=== PATIENT | female | born 1990 | race Caucasian/White ===

== ENCOUNTER 2020-01-18 08:19 | Outpatient (REF) | payer OTHER, SELFPAY ==
[2020-01-18 08:58] LABS: COVID-19 Test Negative (Negative)
== END 2020-01-18 08:20 | disposition home or self-care (01) ==
LOC: HO.LAB 08:19
PROVIDERS: Visit Provider Internal Medicine
DX: Z20.828 Contact with and (suspected) exposure to other viral communicable diseases (principal)
CPT/HCPCS: 87635; C9803

== ENCOUNTER 2020-02-24 08:08 | Outpatient (REF) | payer OTHER, SELFPAY ==
[2020-02-24 08:35] LABS: COVID-19 Test Negative (Negative)
== END 2020-02-24 08:09 | disposition home or self-care (01) ==
LOC: HO.EMPCOV 08:08
PROVIDERS: Visit Provider Internal Medicine
DX: Z20.828 Contact with and (suspected) exposure to other viral communicable diseases (principal)
CPT/HCPCS: 87635; C9803

== ENCOUNTER 2020-02-28 07:08 | Outpatient (REF) | payer OTHER, SELFPAY ==
[2020-02-28 07:52] LABS: COVID-19 Test Negative (Negative)
== END 2020-02-28 07:09 | disposition home or self-care (01) ==
LOC: HO.EMPCOV 07:08
PROVIDERS: Visit Provider Internal Medicine
DX: Z20.828 Contact with and (suspected) exposure to other viral communicable diseases (principal)
CPT/HCPCS: 87635; C9803

== ENCOUNTER 2020-03-09 07:18 | Outpatient (REF) | payer OTHER, SELFPAY ==
[2020-03-09 07:38] LABS: COVID-19 Test Negative (Negative); IDNOW Serial# 55D5AD1C
== END 2020-03-09 07:19 | disposition home or self-care (01) ==
LOC: HO.EMPCOV 07:18
PROVIDERS: Visit Provider Internal Medicine
DX: Z20.828 Contact with and (suspected) exposure to other viral communicable diseases (principal)
CPT/HCPCS: 87635; C9803

== ENCOUNTER 2020-06-23 07:52 | Outpatient (REF) | payer OTHER, SELFPAY ==
[2020-06-23 09:38] LABS: COVID-19 Test Negative (Negative)
== END 2020-06-23 07:53 | disposition home or self-care (01) ==
LOC: HO.EMPCOV 07:52
PROVIDERS: Visit Provider Internal Medicine
DX: Z20.822 Contact with and (suspected) exposure to COVID-19 (principal)
CPT/HCPCS: 36415; 87635; C9803

== ENCOUNTER 2020-07-26 08:12 | Outpatient (REF) | payer OTHER, SELFPAY ==
[2020-07-26 08:40] LABS: COVID-19 Test Negative (Negative)
== END 2020-07-26 08:13 | disposition home or self-care (01) ==
LOC: HO.EMPCOV 08:12
PROVIDERS: Visit Provider Internal Medicine
DX: Z20.822 Contact with and (suspected) exposure to COVID-19 (principal)
CPT/HCPCS: 36415; 87635; C9803

== ENCOUNTER 2020-08-02 12:35 | Outpatient (REF) | payer OTHER, SELFPAY ==
[2020-08-02 12:54] LABS: COVID-19 Test Negative (Negative)
== END 2020-08-02 12:36 | disposition home or self-care (01) ==
LOC: HO.EMPCOV 12:35
PROVIDERS: Visit Provider Internal Medicine
DX: Z20.822 Contact with and (suspected) exposure to COVID-19 (principal)
CPT/HCPCS: 87635; C9803; U0003; U0005

== ENCOUNTER 2021-01-31 07:48 | Outpatient (REF) | payer OTHER, SELFPAY ==
[2021-01-31 08:00] LABS: MANUAL DIFF FLAG NO
[2021-01-31 08:16] LABS: Basophils Percent Auto 0.6 % (0-2); Eosinophils Absolute Auto 0.1 X10*3/uL (0.0-0.4); Eosinophils Percent Auto 2.1 % (0-4); Hematocrit 40.7 % (37.0-47.0); Hemoglobin 13.6 g/dl (12.0-16.0); Imm Gran Abs Auto 0.01 X10*3/uL (0.00-0.03); Imm Gran Pct Auto 0.2 % (0.0-0.4); Lymphocytes Absolute Auto 2.4 X10*3/uL (1.2-4.9); Lymphocytes Percent Auto 46.9 % (20-40); Mean Corpuscular HGB Conc 33.4 g/dl (31.0-35.0); Mean Corpuscular Hemoglobin 31.6 pg (27.0-33.0); Mean Corpuscular Volume 94.4 fL (80.0-98.0); Mean Platelet Volume 10.2 fL (9.4-12.3); Monocytes Absolute Auto 0.4 X10*3/uL (0.1-1.2); Monocytes Percent Auto 6.8 % (2-11); Neutrophils Absolute Auto 2.2 x10*3/uL (2.0-8.3); Neutrophils Percent Auto 43.4 % (45-73); Platelet Count 241 X10*3/uL (160-400); Red Blood Count 4.31 X10*6/uL (4.20-5.50); Red Cell Distribution Width 11.4 % (11.0-16.0); White Blood Count 5.2 X10*3/uL (4.8-10.8)
[2021-01-31 08:58] LABS: Anion Gap 11 (12-20); Blood Urea Nitrogen 15 mg/dL (9-16); Carbon Dioxide 27 mmol/L (22-29); Chloride 105 mmol/L (96-108); Cholesterol 197 mg/dL; Estimated Glomerular Filt Rate > 60; Glucose Random 99 mg/dL (60-115); HDL Cholesterol 89 mg/dL; Iron 124 mcg/dL (30-160); LDL Cholesterol Calculated 86 mg/dl; Percent Iron Saturation 27 % (15-50); Potassium 4.1 mmol/L (3.3-5.1); Sodium 139 mmol/L (135-145); Total Iron Binding Capacity 462 mcg/dL (228-428); Triglycerides 112 mg/dL; Unsaturated Iron Binding 338 ug/dL
== END 2021-01-31 07:49 | disposition home or self-care (01) ==
LOC: HO.LAB 07:48
PROVIDERS: Visit Provider Internal Medicine
DX: Z00.00 Encounter for general adult medical examination without abnormal findings (principal); F98.8 Other specified behavioral and emotional disorders with onset usually occurring in childhood and adolescence; Z83.49 Family history of other endocrine, nutritional and metabolic diseases
CPT/HCPCS: 36415; 80048; 80061; 83540; 85025

== ENCOUNTER 2021-07-02 11:59 | Outpatient (REF) | payer OTHER, SELFPAY ==
[2021-07-02 12:50] LABS: Appearance Urine CLEAR; Color Urine YELLOW; Glucose Urine UA NEG (NEG); Leukocyte Esterase Urine NEG (NEG); Nitrite Urine NEG (NEG); Specific Gravity - Urine 1.015 (1.005-1.025); Urine Blood TRACE (NEG); Urine Ketones NEG (NEG); Urine Protein NEG (NEG-TRACE)
[2021-07-02 13:52] LABS: Renal Epithelial Cells Urine 1+ /LPF; WBC Urine 0 /HPF (0-4)
== END 2021-07-02 12:00 | disposition home or self-care (01) ==
LOC: HO.LAB 11:59
PROVIDERS: PCP Internal Medicine; Visit Provider Obstetrics & Gynecology
DX: N30.90 Cystitis, unspecified without hematuria (principal)
CPT/HCPCS: 81001; 87086

== ENCOUNTER 2021-08-01 | Outpatient (REF) | payer OTHER, SELFPAY | END 2021-08-01 00:01 | disposition home or self-care (01) | LOC: HO.LNP | PROVIDERS: PCP Hospitalist; Visit Provider Hospitalist | DX: Z13.89 Encounter for screening for other disorder (principal) ==

== ENCOUNTER 2021-08-01 14:29 | Outpatient (REF) | payer OTHER, SELFPAY ==
[2021-08-02 12:13] LABS: Influenza A PCR NEGATIVE (Negative); Influenza B PCR NEGATIVE (Negative); Resp Syncy Virus RNA Qual PCR NEGATIVE (Negative); SARS COV2 PCR INHOUSE NEGATIVE (Negative)
== END 2021-08-01 14:30 | disposition home or self-care (01) ==
LOC: HO.LAB 14:29
PROVIDERS: Visit Provider Hospitalist
DX: Z20.822 Contact with and (suspected) exposure to COVID-19 (principal); R07.89 Other chest pain; J98.8 Other specified respiratory disorders
CPT/HCPCS: 0241U

== ENCOUNTER 2021-08-15 18:15 | Emergency (ER) | payer OTHER, SELFPAY ==
--- NOTE | 2021-08-15 | ECG_ITS ---
Test Reason : palpitations Blood Pressure : / mmHG Vent. Rate : 075 BPM Atrial Rate : 075 BPM P-R Int : 164 ms QRS Dur : 080 ms QT Int : 384 ms P-R-T Axes : 056 066 054 degrees QTc Int : 428 ms Normal sinus rhythm Normal ECG No previous ECGs available Referred By: Generic ED Physician Electronically Signed By:STEPHANY DOMINGUEZ
[2021-08-15 18:27] VITALS: BP 123/88; PULSE 75; RESP 20; TEMP 36.7; O2SAT 100; BMI 21.9
[2021-08-15 18:40] LABS: MANUAL DIFF FLAG NO
[2021-08-15 18:42] LABS: Basophils Percent Auto 0.5 % (0-2); Eosinophils Absolute Auto 0.2 X10*3/uL (0.0-0.4); Eosinophils Percent Auto 2.3 % (0-4); Hemoglobin 13.1 g/dl (12.0-16.0); Imm Gran Abs Auto 0.01 X10*3/uL (0.00-0.03); Imm Gran Pct Auto 0.2 % (0.0-0.4); Lymphocytes Absolute Auto 3.3 X10*3/uL (1.2-4.9); Lymphocytes Percent Auto 50.2 % (20-40); Mean Corpuscular HGB Conc 34.5 g/dl (31.0-35.0); Mean Corpuscular Hemoglobin 32.1 pg (27.0-33.0); Mean Corpuscular Volume 93.1 fL (80.0-98.0); Mean Platelet Volume 9.9 fL (9.4-12.3); Monocytes Absolute Auto 0.5 X10*3/uL (0.1-1.2); Monocytes Percent Auto 7.6 % (2-11); Neutrophils Absolute Auto 2.6 x10*3/uL (2.0-8.3); Neutrophils Percent Auto 39.2 % (45-73); Platelet Count 221 X10*3/uL (160-400); Red Blood Count 4.08 X10*6/uL (4.20-5.50); Red Cell Distribution Width 11.6 % (11.0-16.0); White Blood Count 6.5 X10*3/uL (4.8-10.8)
[2021-08-15 18:59] LABS: Anion Gap 14 (12-20); Blood Urea Nitrogen 13 mg/dL (9-16); Calcium 9.3 mg/dL (8.4-10.2); Carbon Dioxide 24 mmol/L (22-29); Chloride 104 mmol/L (96-108); Creatinine Clr Calc Pharmacy 81.8; Estimated Glomerular Filt Rate > 60; Glucose Random 95 mg/dL (60-115); Potassium 3.9 mmol/L (3.3-5.1); Sodium 138 mmol/L (135-145)
[2021-08-15 19:06] LABS: Troponin-I High Sensitivity < 3.5 ng/L (<3.5-17.0)
[2021-08-15 21:52] LABS: D Dimer High Sensitivity < 150 NG/ML
--- NOTE | 2021-08-15 22:08 | ED_ITS ---
HPI - General Adult General Chief complaint: General Medical Stated complaint: headache palpations,eye blurriness Time Seen by Provider: 08/15/21 22:08 Source: patient Mode of arrival: ambulatory Limitations: no limitations History of Present Illness HPI narrative: Patient is a 31 year old female presenting to the emergency department today with heart palpitations, fatigue, and left arm numbness. Patient states that these symptoms started last week and have been intermittent. Patient states that the symptoms started at the same time as she started a new script of adderall. 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 Patient also states that she is planning a wedding and is under a large amount of stress. Patient denies any current dizziness, lightheadedness, abdominal pain, nausea, vomiting, fever, chills, blurry vision, double vision, loss of vision, chest pain, difficulty breathing, shortness of breath, back pain, night sweats, pain with urination, increased urinary frequency, increased urinary urgency, blood in her urine or stool, syncope or a near syncopal episode, recent trauma or falls, bowel incontinence, bladder incontinence, bowel retention, bladder retention, or any other complaints at this time. Onset (ago): week(s) Severity: mild Severity scale (1-10): 1 Relieving factors: none Exacerbating factors: none Associated symptoms: denies other symptoms Treatments prior to arrival: none Related Data Home Medications Medication Instructions Recorded Confirmed dextroamphetamine-amphetamine ER 1 cap PO QAM 12/25/20 08/15/21 15 mg 24hr capsule,extend release drospirenone 3 mg-ethinyl 1 tab PO DAILY 12/25/20 08/15/21 estradiol 0.02 mg tablet Allergies Allergy/AdvReac Type Severity Reaction Status Date / Time No Known Allergies Allergy Verified 08/15/21 15:26 Review of Systems Constitutional: Constitutional: Reports no additional constitutional complaints, Denies chills, Denies fever(s) and Denies night sweats Eyes: Eyes: Reports no additional eye complaints, Denies blurry vision, Denies change in vision, Denies diplopia, Denies eye discharge, Denies loss of vision and Denies eye pain ENT: Denies dizziness Cardiovascular: Cardiovascular: Reports no additional cardiovascular complaints, Denies chest pain, Denies lightheadedness, Denies Loss of Consciousness and Denies dyspnea Respiratory: Respiratory: Reports no additional respiratory complaints and Denies dyspnea Gastrointestinal: Gastrointestinal: Reports no additional gastrointestinal complaints, Denies abdominal pain, Denies melena, Denies hematochezia, Denies change in bowel habits and Denies change in stool character Genitourinary: Genitourinary: Denies hematuria, Denies urinary frequency, Denies dysuria, Denies urinary incontinence, Denies urinary hesitancy and Denies urinary urgency Musculoskeletal: Musculoskeletal: Reports no additional musculoskeletal complaints, Denies numbness and Denies tingling Neurologic: Denies dizziness, Denies loss of vision, Denies numbness and Denies tingling Psychiatric: Psychiatric: Reports no additional psychiatric complaints Endocrine: Endocrine: Reports no additional endocrine complaints Hematologic/Lymphatic: Hematologic/Lymphatic: Reports no additional hematologic/lymphatic complaints Allergic/Immunologic: Allergic/Immunologic: Reports no additional allergic/immunologic complaints PMFSH Past Medical History Attestation statement: The following information was validated with the patient. Source: old records reviewed Social History Social History Patient Tobacco Use Status: Never used Tobacco Advance Directives: No Advance Directives Information Provided: No Physical Exam ED Vital Signs: Vital Signs - 24 hr 08/15/21 18:27 08/15/21 22:21 Temperature 98.1 F 98.2 F Pulse Rate 75 65 Respiratory Rate 20 16 Blood Pressure 123/88 112/77 Pulse Oximetry 100 100 Oxygen Delivery Method Room Air Room Air BMI result Body Mass Index 21.9 Const General: cooperative, no acute distress, alert and awake Nutritional Appearance: well nourished Orientation/consciousness: patient oriented x3 Limitations: no limitations HENMT Head: Yes normal to inspection and Yes atraumatic Ears: hearing grossly normal bilaterally and external ears normal General nose exam: Normal external nose present, no nasal discharge noted and no epistaxis Face and sinus: Yes normal facial exam, No abrasion and No laceration Mouth: Normal oral and palatal mucosa present, no drooling and no muffled voice Eyes General: appearance normal, both eyes and all related structures Periorbital: periorbital findings normal Eyelids: Yes eyelids normal Conjunctivae: conjunctivae normal Pupils: Equal, round and reactive pupils present EOM: EOMs intact bilaterally Neck Neck: Yes normal visual inspection, Yes full ROM and Yes no lymphadenopathy Chest Chest palpation & inspection: normal inspection of the chest Resp Effort & Inspection: normal respiratory effort and able to speak in complete sentences Auscultation: clear to auscultation bilaterally Cardio Rate: regular rate Rhythm: regular rhythm GI Inspection: Yes normal to inspection Neuro General: patient oriented x3 and moves all extremities Cranial nerves: Yes Equal, round and reactive pupils present Cognition (Neuro): normal cognition Motor exam (neuro): 5/5 motor strength present throughout Sensory Exam: Normal double simultaneous stimulation for sensation Coordination: [id number]-rx-[id number] test normal Extrem General: Yes normal to inspection, Yes full ROM and Yes capillary refill normal Psych Appearance: grossly normal Mental Status: mental status grossly normal Affect: normal affect Attitude: cooperative Thought process: Normal thought process present Thought content: Normal thought content present Insight: Good insight present (Psych) Medical Decision Making MDM Narrative Medical decision making narrative: Patient is a 31 year old female presenting to the emergency department today with intermittent palpitations, left arm numbness, and fatigue. Patient's physical exam was unremarkable. Patient's blood work was unremarkable. Patient's EKG was unremarkable. I explained my physical exam findings as well as all test results to the patient. I answered all questions asked by the patient. I explained to the patient that given her symptoms, age, and normal work up, I am concerned for MS or an auto immune process. I stressed the importance of the patient following up with a neurologist to further explore that DDx. I stressed the importance of the patient taking her medication as prescribed. I stressed the importance of the patient following up with her primary care provider. I stressed the importance of the patient returning to the emergency department immediately if her symptoms were to worsen or if she were to develop any dizziness, shortness of breath, difficulty breathing, chest pain, blurry vision, loss of vision, nausea, vomiting, abdominal pain, fever, chills, back pain, or any other complaints. Patient verbalized agreement and understanding with this treatment plan and discharge. Differential Diagnosis Differential Diagnosis: MS, stress induced symptoms, palpitations Medical Records Medical records reviewed: Yes I reviewed the patient's medical records. Lab Data Lab results reviewed: Yes I reviewed the patient's lab results. Result diagrams: 08/15/21 18:36 08/15/21 18:36 Labs: Lab Results 08/15/21 08/15/21 08/15/21 Range/Units 18:36 18:36 18:36 WBC 6.5 (4.8-10.8) X10*3/uL RBC 4.08 L (4.20-5.50) X10*6/uL Hgb 13.1 (12.0-16.0) g/dl Hct 38.0 (37.0-47.0) % MCV 93.1 (80.0-98.0) fL MCH 32.1 (27.0-33.0) pg MCHC 34.5 (31.0-35.0) g/dl RDW 11.6 (11.0-16.0) % Plt Count 221 (160-400) X10*3/uL MPV 9.9 (9.4-12.3) fL Immature Gran % (Auto) 0.2 (0.0-0.4) % Neut % (Auto) 39.2 L (45-73) % Lymph % (Auto) 50.2 H (20-40) % [place] % (Auto) 7.6 (2-11) % Eos % (Auto) 2.3 (0-4) % Baso % (Auto) 0.5 (0-2) % Lymph # (Auto) 3.3 (1.2-4.9) X10*3/uL [place] # (Auto) 0.5 (0.1-1.2) X10*3/uL Eos # (Auto) 0.2 (0.0-0.4) X10*3/uL Baso # (Auto) 0.0 (0.0-0.2) X10*3/uL Abs Immat Gran (auto) 0.01 (0.00-0.03) X10*3/uL Absolute Neuts (auto) 2.6 (2.0-8.3) x10*3/uL Absolute Nucleated RBC 0.000 (0.0-0.012) X10*3/uL Nucleated RBC % (auto) 0.0 (0.0-0.2) /100WBC D-Dimer High Sensitivty NG/ML Sodium 138 (135-145) mmol/L Potassium 3.9 (3.3-5.1) mmol/L Chloride 104 (96-108) mmol/L Carbon Dioxide 24 (22-29) mmol/L Anion Gap 14 (12-20) BUN 13 (9-16) mg/dL Creatinine 0.88 (0.5-1.4) mg/dL Estim Creat Clear Calc 81.8 Estimated GFR > 60 Random Glucose 95 (60-115) mg/dL Calcium 9.3 D (8.4-10.2) mg/dL Troponin I High Sens < 3.5 (<3.5-17.0) ng/L 08/15/21 Range/Units 21:17 WBC (4.8-10.8) X10*3/uL RBC (4.20-5.50) X10*6/uL Hgb (12.0-16.0) g/dl Hct (37.0-47.0) % MCV (80.0-98.0) fL MCH (27.0-33.0) pg MCHC (31.0-35.0) g/dl RDW (11.0-16.0) % Plt Count (160-400) X10*3/uL MPV (9.4-12.3) fL Immature Gran % (Auto) (0.0-0.4) % Neut % (Auto) (45-73) % Lymph % (Auto) (20-40) % [place] % (Auto) (2-11) % Eos % (Auto) (0-4) % Baso % (Auto) (0-2) % Lymph # (Auto) (1.2-4.9) X10*3/uL [place] # (Auto) (0.1-1.2) X10*3/uL Eos # (Auto) (0.0-0.4) X10*3/uL Baso # (Auto) (0.0-0.2) X10*3/uL Abs Immat Gran (auto) (0.00-0.03) X10*3/uL Absolute Neuts (auto) (2.0-8.3) x10*3/uL Absolute Nucleated RBC (0.0-0.012) X10*3/uL Nucleated RBC % (auto) (0.0-0.2) /100WBC D-Dimer High Sensitivty < 150 NG/ML Sodium (135-145) mmol/L Potassium (3.3-5.1) mmol/L Chloride (96-108) mmol/L Carbon Dioxide (22-29) mmol/L Anion Gap (12-20) BUN (9-16) mg/dL Creatinine (0.5-1.4) mg/dL Estim Creat Clear Calc Estimated GFR Random Glucose (60-115) mg/dL Calcium (8.4-10.2) mg/dL Troponin I High Sens (<3.5-17.0) ng/L ECG Data Attestation: I personally reviewed and interpreted this ECG as follows: Prior ECG tracings: not available for review Interpretation: Vent. Rate: 075 BPM ? ? Atrial Rate: 075 BPM P-R Int : 164 ms? QRS Dur: 080 ms QT Int: 384 ms ? ? ? P-R-T Axes: 056 066 054 degrees QTc Int: 428 ms ? Normal sinus rhythm Normal ECG No previous ECGs available DD/ 1837 Discharge Plan Discharge Clinical Impression: Heart palpitations, Fatigue, Arm numbness left Patient Disposition: Home, Self-Care Instructions: Paresthesia (ED), Fatigue (ED) Additional Instructions: Follow up with your primary care provider and neurologist. Return to the emergency department immediately if your symptoms worsen or if you develop any dizziness, shortness of breath, difficulty breathing, chest pain, blurry vision, loss of vision, nausea, vomiting, abdominal pain, fever, chills, back pain, or any other complaints. Prescriptions: No Action dextroamphetamine-amphetamine 15 mg capsule,extended release 24hr 1 cap PO QAM drospirenone-ethinyl estradiol 3-0.02 mg tablet 1 tab PO DAILY Referrals: Aquiles Juan MD [Physician] - (Call to follow up with a neurologist. ) Stand Alone Forms: Work/School Release Interventions: ED Discharge Assessment Last Done: 08/15/21 22:53 Discharge Date/Time: 08/15/21 22:54 Print Language: Maltese
[2021-08-15 22:21] VITALS: BP 112/77; PULSE 65; RESP 16; TEMP 36.8; O2SAT 100
== END 2021-08-15 22:54 | disposition home or self-care (01) ==
PROVIDERS: Emergency Provider Internal Medicine; PCP Internal Medicine
DX: R00.2 Palpitations (principal); R53.83 Other fatigue; R20.2 Paresthesia of skin
CPT/HCPCS: 36415; 80048; 84484; 85025; 85379; 93005; 99283

== ENCOUNTER 2021-11-08 11:52 | Outpatient (REF) | payer OTHER, SELFPAY ==
[2021-11-08 13:57] LABS: Iron 161 mcg/dL (30-160); Magnesium 2.2 mg/dL (1.6-2.6); Percent Iron Saturation 36 % (15-50); Total Iron Binding Capacity 442 mcg/dL (228-428); Unsaturated Iron Binding 281 ug/dL
[2021-11-08 14:10] LABS: Vitamin D 25-OH Total 39.1 ng/mL (>30)
[2021-11-08 14:25] LABS: Folate 13.6 ng/mL (> or = 4.0); Vitamin B12 502 pg/mL (200-900)
== END 2021-11-08 11:53 | disposition home or self-care (01) ==
LOC: HO.LAB 11:52
PROVIDERS: PCP Internal Medicine; Visit Provider Internal Medicine
DX: R20.2 Paresthesia of skin (principal); R41.89 Other symptoms and signs involving cognitive functions and awareness; E55.9 Vitamin D deficiency, unspecified
CPT/HCPCS: 36415; 82306; 82607; 82746; 83540; 83735

== ENCOUNTER 2022-04-01 10:12 | Outpatient (REF) | payer OTHER, SELFPAY ==
[2022-04-01 12:54] LABS: HCG Quantitative 114 mIU/mL
[2022-04-06 16:58] LABS: Progesterone 1.2 ng/mL
== END 2022-04-01 10:13 | disposition home or self-care (01) ==
LOC: HO.LAB 10:12
PROVIDERS: Visit Provider Obstetrics & Gynecology
DX: O26.859 Spotting complicating pregnancy, unspecified trimester (principal)
CPT/HCPCS: 36415; 84144; 84702; 86850; 86900

== ENCOUNTER 2022-04-03 07:13 | Outpatient (REF) | payer OTHER, SELFPAY ==
[2022-04-03 08:31] LABS: HCG Quantitative 46 mIU/mL
== END 2022-04-03 07:14 | disposition home or self-care (01) ==
LOC: HO.LAB 07:13
PROVIDERS: Visit Provider Obstetrics & Gynecology
DX: O26.859 Spotting complicating pregnancy, unspecified trimester (principal)
CPT/HCPCS: 36415; 84702

== ENCOUNTER 2022-04-10 14:10 | Outpatient (REF) | payer OTHER, SELFPAY ==
[2022-04-10 15:09] LABS: HCG Quantitative 3 mIU/mL
== END 2022-04-10 14:11 | disposition home or self-care (01) ==
LOC: HO.LAB 14:10
PROVIDERS: Visit Provider Obstetrics & Gynecology
DX: O03.9 Complete or unspecified spontaneous abortion without complication (principal)
CPT/HCPCS: 36415; 84702

== ENCOUNTER 2022-06-03 10:41 | Outpatient (REF) | payer OTHER, SELFPAY ==
[2022-06-03 12:52] LABS: HCG Quantitative 6137 mIU/mL
[2022-06-10 11:12] LABS: Progesterone 18.9 ng/mL
== END 2022-06-03 10:42 | disposition home or self-care (01) ==
LOC: HO.LAB 10:41
PROVIDERS: PCP Internal Medicine; Visit Provider Obstetrics & Gynecology
DX: Z87.59 Personal history of other complications of pregnancy, childbirth and the puerperium (principal)
CPT/HCPCS: 36415; 84144; 84702

== ENCOUNTER 2022-06-05 09:34 | Outpatient (REF) | payer OTHER, SELFPAY ==
[2022-06-05 11:20] LABS: HCG Quantitative 10470 mIU/mL
== END 2022-06-05 09:35 | disposition home or self-care (01) ==
LOC: HO.LAB 09:34
PROVIDERS: Visit Provider Obstetrics & Gynecology
DX: Z87.59 Personal history of other complications of pregnancy, childbirth and the puerperium (principal)
CPT/HCPCS: 36415; 84702

== ENCOUNTER 2022-06-28 11:25 | Outpatient (REF) | payer OTHER, SELFPAY ==
[2022-06-28 11:54] LABS: MANUAL DIFF FLAG NO
[2022-06-28 12:23] LABS: Basophils Percent Auto 0.4 % (0-2); Eosinophils Absolute Auto 0.1 X10*3/uL (0.0-0.4); Eosinophils Percent Auto 1.4 % (0-4); Hematocrit 39.3 % (37.0-47.0); Hemoglobin 13.3 g/dl (12.0-16.0); Imm Gran Abs Auto 0.03 X10*3/uL (0.00-0.03); Imm Gran Pct Auto 0.3 % (0.0-0.4); Lymphocytes Absolute Auto 2.9 X10*3/uL (1.2-4.9); Lymphocytes Percent Auto 32.5 % (20-40); Mean Corpuscular HGB Conc 33.8 g/dl (31.0-35.0); Mean Corpuscular Hemoglobin 31.4 pg (27.0-33.0); Mean Corpuscular Volume 92.7 fL (80.0-98.0); Mean Platelet Volume 10.4 fL (9.4-12.3); Monocytes Absolute Auto 0.6 X10*3/uL (0.1-1.2); Neutrophils Absolute Auto 5.3 x10*3/uL (2.0-8.3); Neutrophils Percent Auto 58.4 % (45-73); Platelet Count 270 X10*3/uL (160-400); Red Blood Count 4.24 X10*6/uL (4.20-5.50); Red Cell Distribution Width 12.3 % (11.0-16.0); White Blood Count 9.1 X10*3/uL (4.8-10.8)
[2022-06-28 13:18] LABS: HBS Num1 > 1000.00 mIU/mL (0-7.99); HIV AB/AG Nonreactive (Nonreactive); HIV Num 1 0.09 S/CO (0.00-0.99); ~Hepatitis B Surface Antibody REACTIVE (Nonreactive)
[2022-06-28 13:28] LABS: Syphilis Screen Nonreactive (Nonreactive); ~HepC Num1 0.17 S/CO (0.00-0.79); ~Hepatitis C Antibody Nonreactive (Nonreactive)
[2022-07-01 18:48] LABS: Rubella IgG Antibody 9.46 Index
== END 2022-06-28 11:26 | disposition home or self-care (01) ==
LOC: HO.LAB 11:25
PROVIDERS: Visit Provider Obstetrics & Gynecology
DX: Z34.81 Encounter for supervision of other normal pregnancy, first trimester (principal)
CPT/HCPCS: 36415; 85025; 86706; 86762; 86780; 86803; 86850; 86900; 87389

== ENCOUNTER 2022-07-24 10:25 | Outpatient (REF) | payer OTHER, SELFPAY ==
[2022-07-24 11:33] LABS: HCG Quantitative 4265 mIU/mL
== END 2022-07-24 10:26 | disposition home or self-care (01) ==
LOC: HO.LABR 10:25
PROVIDERS: Visit Provider Obstetrics & Gynecology
DX: O01.1 Incomplete and partial hydatidiform mole (principal)
CPT/HCPCS: 36415; 84702

== ENCOUNTER 2022-07-31 11:17 | Outpatient (REF) | payer OTHER, SELFPAY ==
[2022-07-31 11:59] LABS: HCG Quantitative 688 mIU/mL
== END 2022-07-31 11:18 | disposition home or self-care (01) ==
LOC: HO.LABR 11:17
PROVIDERS: Visit Provider Obstetrics & Gynecology
DX: O01.1 Incomplete and partial hydatidiform mole (principal)
CPT/HCPCS: 36415; 84702

== ENCOUNTER 2022-08-07 11:34 | Outpatient (REF) | payer OTHER, SELFPAY ==
[2022-08-07 12:08] LABS: HCG Quantitative 191 mIU/mL
== END 2022-08-07 11:35 | disposition home or self-care (01) ==
LOC: HO.LABR 11:34
PROVIDERS: Visit Provider Obstetrics & Gynecology
DX: O01.1 Incomplete and partial hydatidiform mole (principal)
CPT/HCPCS: 36415; 84702

== ENCOUNTER 2022-08-14 11:44 | Outpatient (REF) | payer OTHER, SELFPAY ==
[2022-08-14 12:25] LABS: HCG Quantitative 72 mIU/mL
== END 2022-08-14 11:45 | disposition home or self-care (01) ==
LOC: HO.LAB 11:44
PROVIDERS: Visit Provider Obstetrics & Gynecology
DX: O01.1 Incomplete and partial hydatidiform mole (principal)
CPT/HCPCS: 36415; 84702

== ENCOUNTER 2022-08-21 08:42 | Outpatient (REF) | payer OTHER, SELFPAY ==
[2022-08-21 09:49] LABS: HCG Quantitative 36 mIU/mL
== END 2022-08-21 08:43 | disposition home or self-care (01) ==
LOC: HO.LAB 08:42
PROVIDERS: Visit Provider Obstetrics & Gynecology
DX: O01.1 Incomplete and partial hydatidiform mole (principal)
CPT/HCPCS: 36415; 84702

== ENCOUNTER 2022-08-27 11:42 | Outpatient (REF) | payer OTHER, SELFPAY ==
[2022-08-27 12:52] LABS: HCG Quantitative 22 mIU/mL
== END 2022-08-27 11:43 | disposition home or self-care (01) ==
LOC: HO.LABR 11:42
PROVIDERS: Visit Provider Obstetrics & Gynecology
DX: O01.1 Incomplete and partial hydatidiform mole (principal)
CPT/HCPCS: 36415; 84702

== ENCOUNTER 2022-09-04 11:23 | Outpatient (REF) | payer OTHER, SELFPAY ==
[2022-09-04 14:58] LABS: HCG Quantitative 15 mIU/mL
== END 2022-09-04 11:24 | disposition home or self-care (01) ==
LOC: HO.LABR 11:23
PROVIDERS: Visit Provider Obstetrics & Gynecology
DX: O01.1 Incomplete and partial hydatidiform mole (principal)
CPT/HCPCS: 36415; 84702

== ENCOUNTER 2022-09-11 11:56 | Outpatient (REF) | payer OTHER, SELFPAY | END 2022-09-11 11:57 | disposition home or self-care (01) | LOC: HO.LABR 11:56 | PROVIDERS: Visit Provider Obstetrics & Gynecology | DX: O01.1 Incomplete and partial hydatidiform mole (principal) | CPT/HCPCS: 36415; 84702 ==

== ENCOUNTER 2022-09-18 12:05 | Outpatient (REF) | payer OTHER, SELFPAY ==
[2022-09-18 14:26] LABS: HCG Quantitative 8 mIU/mL
== END 2022-09-18 12:06 | disposition home or self-care (01) ==
LOC: HO.LABR 12:05
PROVIDERS: Visit Provider Obstetrics & Gynecology
DX: O01.1 Incomplete and partial hydatidiform mole (principal)
CPT/HCPCS: 36415; 84702

== ENCOUNTER 2022-09-25 11:27 | Outpatient (REF) | payer OTHER, SELFPAY ==
[2022-09-25 11:46] LABS: MANUAL DIFF FLAG NO
[2022-09-25 12:08] LABS: Basophils Percent Auto 0.7 % (0-2); Eosinophils Absolute Auto 0.2 X10*3/uL (0.0-0.4); Eosinophils Percent Auto 3.3 % (0-4); Hematocrit 38.9 % (37.0-47.0); Hemoglobin 12.6 g/dl (12.0-16.0); Imm Gran Abs Auto 0.01 X10*3/uL (0.00-0.03); Imm Gran Pct Auto 0.2 % (0.0-0.4); Lymphocytes Absolute Auto 2.4 X10*3/uL (1.2-4.9); Lymphocytes Percent Auto 44.1 % (20-40); Mean Corpuscular HGB Conc 32.4 g/dl (31.0-35.0); Mean Corpuscular Hemoglobin 30.2 pg (27.0-33.0); Mean Corpuscular Volume 93.3 fL (80.0-98.0); Mean Platelet Volume 10.1 fL (9.4-12.3); Monocytes Absolute Auto 0.4 X10*3/uL (0.1-1.2); Monocytes Percent Auto 7.1 % (2-11); Neutrophils Absolute Auto 2.4 x10*3/uL (2.0-8.3); Neutrophils Percent Auto 44.6 % (45-73); Platelet Count 254 X10*3/uL (160-400); Red Blood Count 4.17 X10*6/uL (4.20-5.50); Red Cell Distribution Width 12.4 % (11.0-16.0); White Blood Count 5.5 X10*3/uL (4.8-10.8)
[2022-09-25 13:08] LABS: HCG Quantitative 6 mIU/mL
== END 2022-09-25 11:28 | disposition home or self-care (01) ==
LOC: HO.LABR 11:27
PROVIDERS: Visit Provider Obstetrics & Gynecology
DX: O01.1 Incomplete and partial hydatidiform mole (principal); D64.9 Anemia, unspecified
CPT/HCPCS: 36415; 84702; 85025

== ENCOUNTER 2022-10-02 11:33 | Outpatient (REF) | payer OTHER, SELFPAY ==
[2022-10-02 12:33] LABS: HCG Quantitative 5 mIU/mL
== END 2022-10-02 11:34 | disposition home or self-care (01) ==
LOC: HO.LAB 11:33
PROVIDERS: Visit Provider Obstetrics & Gynecology
DX: O01.1 Incomplete and partial hydatidiform mole (principal)
CPT/HCPCS: 36415; 84702

== ENCOUNTER 2022-10-09 12:16 | Outpatient (REF) | payer OTHER, SELFPAY ==
[2022-10-09 15:07] LABS: HCG Quantitative 4 mIU/mL
== END 2022-10-09 12:17 | disposition home or self-care (01) ==
LOC: HO.LABR 12:16
PROVIDERS: Visit Provider Obstetrics & Gynecology
DX: O01.1 Incomplete and partial hydatidiform mole (principal)
CPT/HCPCS: 36415; 84702

== ENCOUNTER 2022-11-06 11:30 | Outpatient (REF) | payer OTHER, SELFPAY ==
[2022-11-06 12:50] LABS: HCG Quantitative < 2 mIU/mL
== END 2022-11-06 11:31 | disposition home or self-care (01) ==
LOC: HO.LAB 11:30
PROVIDERS: Visit Provider Obstetrics & Gynecology
DX: O01.1 Incomplete and partial hydatidiform mole (principal)
CPT/HCPCS: 36415; 84702

== ENCOUNTER 2022-11-26 15:30 | Outpatient (REF) | payer OTHER, SELFPAY ==
[2022-11-26 16:08] LABS: MANUAL DIFF FLAG NO
[2022-11-26 16:26] LABS: Basophils Percent Auto 0.8 % (0-2); Eosinophils Absolute Auto 0.3 X10*3/uL (0.0-0.4); Eosinophils Percent Auto 6.1 % (0-4); Hematocrit 39.3 % (37.0-47.0); Lymphocytes Absolute Auto 2.4 X10*3/uL (1.2-4.9); Lymphocytes Percent Auto 51.4 % (20-40); Mean Corpuscular HGB Conc 33.1 g/dl (31.0-35.0); Mean Corpuscular Hemoglobin 30.4 pg (27.0-33.0); Mean Corpuscular Volume 91.8 fL (80.0-98.0); Mean Platelet Volume 9.7 fL (9.4-12.3); Monocytes Absolute Auto 0.5 X10*3/uL (0.1-1.2); Monocytes Percent Auto 10.8 % (2-11); Neutrophils Absolute Auto 1.5 x10*3/uL (2.0-8.3); Neutrophils Percent Auto 30.9 % (45-73); Platelet Count 222 X10*3/uL (160-400); Red Blood Count 4.28 X10*6/uL (4.20-5.50); Red Cell Distribution Width 12.1 % (11.0-16.0); White Blood Count 4.7 X10*3/uL (4.8-10.8)
[2022-11-26 16:38] LABS: Estimated Average Glucose 91 mg/dL; Hemoglobin A1c % 4.8 % (<6.0)
[2022-11-26 18:47] LABS: Alanine Aminotransferase 27 U/L (0-31); Albumin Level 4.3 g/dL (3.5-5.0); Alkaline Phosphatase 53 U/L (39-117); Anion Gap 13 (12-20); Aspartate Amino Transferase 21 U/L (5-31); Bilirubin Total 0.3 mg/dL (0.0-1.0); Blood Urea Nitrogen 11 mg/dL (9-16); Calcium 9.7 mg/dL (8.4-10.2); Carbon Dioxide 26 mmol/L (22-29); Chloride 105 mmol/L (96-108); Cholesterol 198 mg/dL (<200); Estimated Glomerular Filt Rate > 60; Glucose Random 85 mg/dL (60-115); HDL Cholesterol 82 mg/dL (>40); LDL Cholesterol Calculated 90 mg/dL (<100); Sodium 140 mmol/L (135-145); Total Protein 7.8 g/dL (6.5-8.0); Triglycerides 133 mg/dL (<150)
[2022-11-26 19:04] LABS: Free T4 (Free Thyroxine) 0.89 ng/dL (0.71-1.85); Thyroid Stimulating Hormone 1.19 uIU/mL (0.32-4.0); Vitamin D 25-OH Total 55.5 ng/mL (>30)
[2022-11-27 15:48] LABS: Anti Nuclear Antibody Screen NEGATIVE (NEGATIVE)
[2022-12-02 14:17] LABS: Factor V Leiden NEGATIVE
[2022-12-05 16:53] LABS: MTHFR Mutation Detection POSITIVE
[2022-12-07 20:23] LABS: Progesterone 4.6 ng/mL
== END 2022-11-26 15:31 | disposition home or self-care (01) ==
LOC: HO.LAB 15:30
PROVIDERS: Visit Provider Obstetrics & Gynecology
DX: Z01.419 Encounter for gynecological examination (general) (routine) without abnormal findings (principal); N96 Recurrent pregnancy loss
CPT/HCPCS: 80053; 80061; 81240; 81241; 82306; 83036; 83090; 84144; 84439; 84443; 85025; 86038; 88230; 88262

== ENCOUNTER 2022-11-28 08:47 | Outpatient (AMB) | payer OTHER, SELFPAY ==
[2022-11-28 08:51] VITALS: BP 112/64; PULSE 80; RESP 15; TEMP 36.9; O2SAT 98; BMI 25.8
--- NOTE | 2022-11-28 08:51 | AM.OFFWIN_ITS ---
Intake Vital Signs 11/28/22 08:51 Height 5 ft 5 in Weight 155 lb BMI 25.8 BP 112/64 Blood Pressure Location Lt brachial Position Sitting Respiration 15 Pulse 80 Pulse Source Pulse Oximeter Temp 98.5 F Temp Source Oral Pulse Oximetry (%) 98 Oxygen Delivery Method Room Air Intake Visit Reasons: cough,congestion Intake Note: Cough Patient Tobacco Use Status: Never used Tobacco Stock Chaser Required: No Accompanied by: Self / Same As Patient Allergies No Known Allergies Allergy (Verified 11/28/22 08:55) Do you need a note to return to daycare/school/sports/work: No HPI cough,congestion HPI Details Patient reports she has been coughing consistently for 9 days with increasing coughing. Patient reports she cannot stop coughing and when she talks she is coughing through her words. has also been sick with a moderately severe cough as well. They have been COVID testing and these are negative. No sore throat, no nasal congestion or head congestion. [facility] Social History Patient Tobacco Use Status: Never used Tobacco Review of Systems Const Denies fever(s) ENT Details: No nasal congestion or sore throat Card Details: No chest pain Resp Details: Cough and congestion-see HPI Physical Exam Vital Signs: Last Vital Signs Temp 98.5 F 11/28/22 08:51 Pulse 80 11/28/22 08:51 Resp 15 11/28/22 08:51 BP 112/64 11/28/22 08:51 Pulse Ox 98 11/28/22 08:51 Oxygen Delivery Method Room Air 11/28/22 08:51 BMI result Body Mass Index 25.8 Const Other: No acute distress HEENT Other: No nasal congestion or discharge Resp Other: Coarse breath sounds and overall clear with faint rhonchi at left base which improved with cough but did not fully resolve Effort & Inspection: normal respiratory effort Cardio Other: Regular rate and rhythm, normal S1,S2. No M/R/G. Assessment & Plan Assessment & Plan (1) Cough: Code(s): R05.9 - Cough, unspecified Plan: Likely Viral illness There is no antibiotic medication for viruses. They must run their course. Most average 5-7 days but 7-10 days is not uncommon and up to 14 days is still possible. A cough is often the last symptom to resolve and this can last for weeks in some cases. Rest Hydrate well - Drink plenty of fluids. Especially water. Tylenol or ibuprofen for muscle aches, headache, fever/discomfort Can use [id number] medications for cough such as Delsym or DayQuil. Prescription cough medicines have been shown to be no better. Checking COVID/flu/RSV by nasal swab. If these return positive, she will need appropriate quarantine. Will rule out superimposed pneumonia by chest x-ray Orders: Orders SARS-CoV2/FLU/RSV Today R05.9 - Cough, unspecified, Z20.822 - Contact with and (suspected) exposure to COVID-19 XR chest 2V Today R05.9 - Cough, unspecified Medications: New dextromethorphan HBr 20 mg (15 mL) PO TID 5 days PRN 118 mL 1RF cough R05.9 - Cough, unspecified Coding Level of Care Code Est Pt Level 3 (71537) Diagnoses Cough R05.9
== END 2022-11-28 09:15 | disposition home or self-care (01) ==
PROVIDERS: Visit Provider Family Medicine
DX: R05.9 Cough, unspecified (principal)
CPT/HCPCS: 99213

== ENCOUNTER 2022-11-28 09:13 | Outpatient (REF) | payer OTHER, SELFPAY ==
--- NOTE | ~2022-11-28 | XR_ITS ---
EXAMINATION: XR CHEST CLINICAL INFORMATION: Cough COMPARISON: None available. TECHNIQUE: 2 views of the chest were obtained. FINDINGS: No significant abnormality is noted involving the heart, lungs, mediastinum, bony thorax or soft tissues. XR/XR chest 2V IMPRESSION: Unremarkable examination.
[2022-11-28 12:43] LABS: Influenza A PCR NEGATIVE (Negative); Influenza B PCR NEGATIVE (Negative); Resp Syncy Virus RNA Qual PCR NEGATIVE (Negative); SARS COV2 PCR INHOUSE NEGATIVE (Negative)
== END 2022-11-28 09:14 | disposition home or self-care (01) ==
LOC: HO.XRAY 09:13
PROVIDERS: Visit Provider Family Medicine
DX: R05.9 Cough, unspecified (principal); Z20.822 Contact with and (suspected) exposure to COVID-19
CPT/HCPCS: 0241U; 71046

== ENCOUNTER 2022-12-20 15:19 | Outpatient (REF) | payer OTHER, SELFPAY ==
[2022-12-20 17:29] LABS: Folate 16.1 ng/mL (> or = 4.0); Vitamin B12 741 pg/mL (200-900)
== END 2022-12-20 15:20 | disposition home or self-care (01) ==
LOC: HO.LAB 15:19
PROVIDERS: Visit Provider Obstetrics & Gynecology
DX: E72.12 Methylenetetrahydrofolate reductase deficiency (principal)
CPT/HCPCS: 36415; 82607; 82746

== ENCOUNTER 2023-01-03 12:42 | Outpatient (REF) | payer OTHER, SELFPAY ==
[2023-01-03 15:06] LABS: HCG Quantitative 430 mIU/mL
== END 2023-01-03 12:43 | disposition home or self-care (01) ==
LOC: HO.LAB 12:42
PROVIDERS: Visit Provider Obstetrics & Gynecology
DX: Z87.59 Personal history of other complications of pregnancy, childbirth and the puerperium (principal)
CPT/HCPCS: 36415; 84702

== ENCOUNTER 2023-01-07 08:18 | Outpatient (REF) | payer OTHER, SELFPAY ==
[2023-01-07 10:39] LABS: HCG Quantitative 2334 mIU/mL
== END 2023-01-07 08:19 | disposition home or self-care (01) ==
LOC: HO.LABR 08:18
PROVIDERS: Visit Provider Obstetrics & Gynecology
DX: O01.1 Incomplete and partial hydatidiform mole (principal)
CPT/HCPCS: 36415; 84702

== ENCOUNTER 2023-01-09 10:49 | Outpatient (REF) | payer OTHER, SELFPAY ==
[2023-01-09 12:31] LABS: HCG Quantitative 6249 mIU/mL
== END 2023-01-09 10:50 | disposition home or self-care (01) ==
LOC: HO.LAB 10:49
PROVIDERS: Visit Provider Obstetrics & Gynecology
DX: O01.1 Incomplete and partial hydatidiform mole (principal)
CPT/HCPCS: 36415; 84702

== ENCOUNTER 2023-02-07 13:42 | Outpatient (REF) | payer OTHER, SELFPAY ==
[2023-02-07 14:07] LABS: MANUAL DIFF FLAG NO
[2023-02-07 14:33] LABS: Basophils Percent Auto 0.4 % (0-2); Eosinophils Absolute Auto 0.1 X10*3/uL (0.0-0.4); Eosinophils Percent Auto 1.6 % (0-4); Hematocrit 34.2 % (37.0-47.0); Hemoglobin 11.6 g/dl (12.0-16.0); Imm Gran Abs Auto 0.03 X10*3/uL (0.00-0.03); Imm Gran Pct Auto 0.4 % (0.0-0.4); Lymphocytes Percent Auto 27.1 % (20-40); Mean Corpuscular HGB Conc 33.9 g/dl (31.0-35.0); Mean Corpuscular Hemoglobin 31.2 pg (27.0-33.0); Mean Corpuscular Volume 91.9 fL (80.0-98.0); Mean Platelet Volume 10.5 fL (9.4-12.3); Monocytes Absolute Auto 0.7 X10*3/uL (0.1-1.2); Monocytes Percent Auto 9.6 % (2-11); Neutrophils Absolute Auto 4.5 x10*3/uL (2.0-8.3); Neutrophils Percent Auto 60.9 % (45-73); Platelet Count 244 X10*3/uL (160-400); Red Blood Count 3.72 X10*6/uL (4.20-5.50); White Blood Count 7.3 X10*3/uL (4.8-10.8)
[2023-02-09 08:55] LABS: Syphilis Screen Nonreactive (Nonreactive)
[2023-02-09 09:10] LABS: HBsAGNum1 0.21 S/CO (0.00-0.99); HIV AB/AG Nonreactive (Nonreactive); HIV Num 1 0.05 S/CO (0.00-0.99); Hepatitis B Surface Antigen Negative (Negative); ~HepC Num1 0.26 S/CO (0.00-0.79); ~Hepatitis C Antibody Nonreactive (Nonreactive)
[2023-02-11 02:42] LABS: Herpes Simplex Type 1 IgG 1.07 index; Herpes Simplex Type 2 IgG <0.90 index
== END 2023-02-07 13:43 | disposition home or self-care (01) ==
LOC: HO.LAB 13:42
PROVIDERS: Visit Provider Obstetrics & Gynecology
DX: Z34.81 Encounter for supervision of other normal pregnancy, first trimester (principal)
CPT/HCPCS: 36415; 85025; 86695; 86696; 86762; 86780; 86803; 86850; 86860; 86870; 86880; 86886; 86900; 86901; 86905; 86970; 86976; 87340; 87389

== ENCOUNTER 2023-06-09 08:34 | Outpatient (REF) | payer OTHER, SELFPAY ==
[2023-06-09 10:57] LABS: Glucose 1 Hour PP 50gm Dose 86 mg/dL (60-140)
== END 2023-06-09 08:35 | disposition home or self-care (01) ==
LOC: HO.LAB 08:34
PROVIDERS: Visit Provider Obstetrics & Gynecology
DX: Z34.02 Encounter for supervision of normal first pregnancy, second trimester (principal)
CPT/HCPCS: 36415; 82950

== ENCOUNTER 2023-11-07 13:01 | Outpatient (AMB) | payer OTHER, SELFPAY ==
[2023-11-07 13:06] VITALS: BP 124/80; PULSE 78; O2SAT 96
--- NOTE | 2023-11-07 13:06 | AM.OFFWIN_ITS ---
Intake Vital Signs 11/07/23 13:06 Height 5 ft 5 in Weight 180 lb BMI 30.0 BP 124/80 Blood Pressure Location Rt brachial Position Sitting Pulse 78 Pulse Source Pulse Oximeter Pulse Oximetry (%) 96 Oxygen Delivery Method Room Air Intake Visit Reasons: EP LT foot pain 1 month Intake Note: Pt presents to the office today for c/o left foot pain x1 month. Pt states she also has swelling on the top of her foot. Pt states [place]le ball [place] the beach but doesn't think that is what caused it. Patient Tobacco Use Status: Never used Tobacco Allergies No Known Allergies Allergy (Verified 11/07/23 13:10) HPI HPI Comments History of Present Illness Details Patient is a 33-year-old female complaining of left foot pain x1 month. She states about a month ago she was playing with a ball on the sand and she fell and she is not quite sure if she aggravated it or did something then but that is when it started hurting. She also recently gave . She has not done anything to try to make it feel better or rest it or taken any medications. [facility] Social History Patient Tobacco Use Status: Never used Tobacco Review of Systems Const All systems reviewed & are unremarkable except as noted in HPI and below Physical Exam Vital Signs: Last Vital Signs Pulse 78 11/07/23 13:06 BP 124/80 11/07/23 13:06 Pulse Ox 96 11/07/23 13:06 Oxygen Delivery Method Room Air 11/07/23 13:06 BMI result Body Mass Index 30.0 Const General: cooperative, healthy appearing, comfortable and no acute distress Orientation/consciousness: patient oriented x3 Limitations: no limitations HEENT Head: Yes normal to inspection Resp Effort & Inspection: normal respiratory effort and able to speak in complete sentences Neuro General: patient oriented x3 Extrem Left lower extremity: foot Details: normal capillary refill, normal to inspection, tenderness Location: of the mid foot Location: dorsally and over the Lisfranc joint, toes with normal ROM, no edema, vascular exam Details: dorsalis pedis pulse present, posterior tibial pulse present and normal capillary refill, tendon exam Details: active flexion normal and active extension normal and motor-sensory exam Details: light-touch normal; no unusual warmth, no abrasions, no lacerations and no ecchymosis Assessment & Plan Assessment & Plan (1) Foot pain, left: Code(s): M79.672 - Pain in left foot Plan: Likely a sprain but we will get x-rays to confirm there was no fracture and that if there was a fracture, everything is healing properly. Gave patient Sourav bandage, she said she will rapid herself later. Advised rest, ice and ibuprofen. If no improvement, she should follow up with her primary care doctor. Plan See above Orders: Orders XR foot LT min 3V Today M79.672 - Pain in left foot Coding Level of Care Code New Pt Level 3 (85564) Diagnoses Foot pain, left M79.672
== END 2023-11-07 13:38 | disposition home or self-care (01) ==
PROVIDERS: Visit Provider Physician Assistant
DX: M79.672 Pain in left foot (principal)
CPT/HCPCS: 99203

== ENCOUNTER 2023-11-07 13:31 | Outpatient (REF) | payer OTHER, SELFPAY ==
--- NOTE | ~2023-11-07 | XR_ITS ---
EXAMINATION: XR FOOT, LEFT CLINICAL INFORMATION: Pain COMPARISON: None available. TECHNIQUE: AP, lateral, and oblique views of the left foot. FINDINGS: No visible acute fracture. Alignment is anatomic. Joint spaces are maintained. No abnormal soft tissue calcification. No erosions. XR/XR foot LT min 3V IMPRESSION: No radiographic evidence of acute fracture. If there is persistent symptoms, consider follow-up imaging. Electronically signed by: Madi Ziegler MD 11/07/2023 04:01 PM EDT
== END 2023-11-07 13:32 | disposition home or self-care (01) ==
LOC: HO.HMGCX 13:31
PROVIDERS: Visit Provider Physician Assistant
DX: M79.672 Pain in left foot (principal)
CPT/HCPCS: 73630

== ENCOUNTER 2023-11-27 15:27 | Outpatient (REF) | payer OTHER, SELFPAY ==
[2023-11-27 16:27] LABS: HCG Quantitative < 2 mIU/mL
== END 2023-11-27 15:28 | disposition home or self-care (01) ==
LOC: HO.LAB 15:27
PROVIDERS: Visit Provider Obstetrics & Gynecology
DX: O01.1 Incomplete and partial hydatidiform mole (principal)
CPT/HCPCS: 36415; 84702

== ENCOUNTER 2024-05-21 07:14 | Outpatient (REF) | payer OTHER, SELFPAY ==
--- OUTSIDE RECORDS SUMMARY | 2024-05-21 07:15 | XMS_ITS | Encounter Summary ---
Author Organization [facility] Address [address] [place] [address] Care Team Providers Care Phone Triage Specialist Name Role Phone Saritha Rodrigez MD Primary Care Provider [phone] Sparkle Rincon MD Unavailable [phone] Encounter Details Date Type Department Care Team (Late st Contact Info) Description 04/10/2017 Scanned Document [address] [place] [phone] Provider, Generic Social History Tobacco Use Types Packs/Day Years Used Date Smoking Tobacco: Never Alcohol Use Standard Drinks/Week Comments Yes 0 (1 standard drink = 0.6 oz pur e alcohol) Sex and Gender Information Value Date Recorded Sex Assigned at Female 07/16/2022 12:46 PM EDT Gender Identity Female 07/16/2022 12:46 PM EDT Sexual Orientation Heterosexual (straight) 04/15 3:42 PM EST documented as of this encounter Plan of Treatment Not on file documented as of this encounter Visit Diagnoses Not on filedocumented in this encounter Care Teams Phone Triage Specialist Relationship Specialty Start Date End Date Saritha Rodrigez MD PCP - General 05/18/11 Sparkle Rincon MD [address] [place] [address] Obstetrics and Gynecology 04/16/23 documented as of this encounter
--- OUTSIDE RECORDS SUMMARY | 2024-05-21 07:15 | XMS_ITS | Clinical Summary ---
Author Organization [facility] Address [address] [place] [id number] Care Team Providers Care Information Technology Associate Name Role Phone Saritha Rodrigez MD Primary Care Provider + [phone] Sparkle Rincon MD Unavailable [phone] Allergies Active Allergy Reactions Criticality Noted Date Comments Sulfamethoxazole-Trimethoprim Itching Low 2017 Cephalexin Itching Low 04/10/2017 Medications Medication Sig Dispensed Refills Start Date End Date Status acetaminophen (TYLENOL) 500 MG tabletIndications:M issed Take 2 tablets (1,000 mg total) by mouth 4 times daily (every 6 hours) as needed for mild pain or moderate pain. 30 tablet 07/17/2022 Active ferrous sulfate 325 (65 FE) MG EC tabletIndications:A cute blood loss anemia Take 1 tablet (325 mg total) by mouth daily. Take 2 hours before or 4 hours after acid reducers. 30 tablet 1 07/17/2022 Active vitamin with iron and folic acid ( PLUS) 27-1 MG Tab Take 1 tablet by mouth daily. Active P-Yittehcwvbsx-E7-B 12 3-35-2 MG Tab Take 1 tablet by mouth 2 (two) times a day. Active ibuprofen (MOTRIN) 600 MG tabletIndications:T erm delivered Take 1 tablet (600 mg total) by mouth 4 times daily (every 6 hours) as needed for mild pain, moderate pain, fever or headaches. 60 tablet 09/12/2023 Active benzocaine 20% - menthol 0.5% (DERMOPLAST) 20-0.5 % Aerosol topical sprayIndications:Te rm delivered Apply 1 Application topically 4 times daily (every 6 hours) as needed for mild pain or irritation. 09/12/2023 Active dibucaine (NUPERCAINAL) 1 % ointmentIndications :Term delivered Apply topically 4 times daily (every 6 hours) as needed (hemorrhoidal irritation). 09/12/2023 Active lanolin (DKQ-U-AOWZJG) creamIndications:Te rm delivered Apply topically as needed (nipple care). 09/12/2023 Active witch mercedes-glycerin (TUCKS) padIndications:Term delivered Apply topically as needed for irritation. 09/12/2023 Active Active Problems Problem Noted Date Diagnosed Date and not yet delivered in third trimeste r 09/08/2023 Missed 07/16/2022 Attention deficit disorder 05/12/2013 Resolved Problems Problem Noted Date Diagnosed Date Resolved Date Otitis media 12/11/2014 02/03/2024 Immunizations Name Administration Dates Next Due DTP / HiB 10/20/1989 DTaP 5 08/29/1993, 4,02/11/1990,02/11,1988,1988 HPV Quadrivalent 02/18/2007,11/19/2006 Hepatitis B 09/18/2000,10/19/1999 Influenza Inactivated/Split Preservative Free IM 12/16/2013,12/31/2012,12/01/2012,02/05 MMR 10/19/1999,11/20/1989 Meningococcal MCV4P (Menactra) 11/19/2006 OPV 10/15/1993, 0,1988,10/21 Pneumococcal Polysaccharide 23-Valent 02/15/2014 Tdap 09/11/2023(Deferred: - Patient received this vaccine during her ),12/31/2011 Tetanus 10/31/2003 Family History Medical History Relation Name Comments Cancer Father Relation Name Status Comments Father Alive Mother Alive Social History Tobacco Use Types Packs/Day Years Used Date Smoking Tobacco: Never Smokeless Tobacco: Never Tobacco Cessation:Counseling Given: Not Answered Alcohol Use Standard Drinks/Week Comments Yes 0 (1 standard drink = 0.6 oz pur e alcohol) Soc [facility] Utilities Answer Date Recorded In the past 12 months has e [employer], or [employer] threatened to shut off services in your home? No 09/08/2023 AUDIT-C Answer Date Recorded Q1: How often do you have a drink containing alcohol? Never 09/08/2023 Q2: How many drinks containi ng alcohol do you have on a typical day when you are drinking? Patient does not drink Q3: How often do you have si x or more drinks on one occasion? Never 09/08/2023 Hunger Vital Sign Answer Date Recorded Within the past 12 months, y ou worried that your food would run out before you got the money to buy more. Never true 09/08/19 24 Within the past 12 months, t he food you bought just didn't last and you didn't have money to get more. Never true 09/08/2023 PRAPARE - Transportation Answer Date Re corded In the past 12 months, has l ack of transportation kept you from medical appointments or from getting medications? No 03/2023 In the past 12 months, has l ack of transportation kept you from meetings, work, or from getting things needed for daily living? No 09/08/2023 Housing Stability Vital Sign Answer Ced e Recorded In the last 12 months, was t here a time when you were not able to pay the mortgage or rent on time? No 09/08/2023 In the last 12 months, how many places have you lived? 1 09/08/2023 In the last 12 months, was t here a time when you did not have a steady place to sleep or slept in a group home (including now)? No 09/08/2023 Sex and Gender Information Value Date Recorded Sex Assigned at Female 07/16/2022 12:46 PM EDT Gender Identity Female 07/16/2022 12:46 PM EDT Sexual Orientation Heterosexual (straight) 04/15 3:42 PM EST Last Filed Vital Signs Vital Sign Reading Time Taken Comments Blood Pressure 95/61 09/12/2023 8:00 AM EDT Pulse 65 09/12/2023 8:00 AM EDT Temperature 36.2 ??C (97.2 ??F) 09/12/2023 8:00 AM ED T Respiratory Rate 18 09/12/2023 8:00 AM EDT Oxygen Saturation 97% 09/12/2023 8:00 AM EDT Inhaled Oxygen Concentration - - Weight 90.7 kg (200 lb) 09/08/2023 11:12 AM EDT Height 165.1 cm (5' 5 ) 09/08/2023 11:12 AM EDT Body Mass Index 33.28 09/08/2023 11:12 AM EDT Plan of Treatment Health Maintenance Due Date Last Done Comments Hepatitis C Virus Screening 1988 HPV Vaccines (3 - 3-dose series) 05/20/2007 02/18/2007, 11/19/2006 DTaP/Tdap/Td Vaccines (7 - Td or Tdap) 12/30/2021 12/31/2011, 08/29/1993, 08/15/1993, Additional history exists Influenza Vaccine 10/09/2023 02/06/2023, , 12/22/2014, Additional history exists COVID-19 Vaccine ( season) 2023 11/06/2020, 10/16/2020 Pap Smear (Ages 21-65) 02/06/2026 , 01/11/2022, 01/08/2021, Additional history exists Hepatitis B Vaccines Completed 09/18/2000, 10/19/19 00 Pneumococcal Vaccine: Pediatric (0-5 Years) and At-Risk Patients (6 to 49 Years) Aged Out 02/15/2014 No longer eligible based on patient's age to complete this topic HIV Screening Completed 06/13/2023 Procedures Procedure Name Priority Date/Time Associated Diagnosis Comments HIV 1/2 AG/AB CMIA REFLEX TO CONFIRMATION Routine 06/13/2023 3:37 PM EDT THINPREP PAP(FURNACE WORKER)GC/CT HPV SCR RFX HPV 16,18/45 Routine 02/06/2023 12:00 AM EST from Last 3 Months or Most Recently Relevant to Health Maintenance Results * HIV 1/2 Ag/Ab CMIA Reflex to Confirmation (06/13/2023 3:37 PM EDT) HIV Ag/Ab, 4th Gen Non-Reacti ve Non-Reacti ve [facility] Comment: Results show no evidence of infection by HIV 1/2. If clinically indicated, repeat CMIA or test by nucleic acid amplification. 06/13/2023 3:37 PM EDT 06/14/2023 12:45 AM EDT Narrative [facility] - 06/14/2023 3:19 AM EDT ANTIBODY ID: [id number] Sparkle Rincon MD LAB BLOOD ORDERABLES [facility] [address] [place], [place] * ThinPrep Pap(Care Center Manager)GC/CT HPV Scr Rfx HPV 16,18/45 (02/06/2023 12:00 AM EST) Report Report [facility] Comment: Final Gynecological Cytology Report ThinPrep Pap Test, GC/CT HPV Screen, Reflex HPV Genotype SPECIMEN ADEQUACY: SATISFACTORY FOR EVALUATION; ENDOCERVICAL/TRANSFORMATION ZONE COMPONENT ABSENT/INSUFFICIENT . INTERPRETATION: NEGATIVE FOR INTRAEPITHELIAL LESION OR MALIGNANCY. Electronically Signed: ??Roseanne Blas CT (ASCP) CLINICAL INFORMATION: LMP: 12/04/2022 Clinical History: ??PG Biopsy Date: ??NG Specimen Source: ??Cervix, Endocervix Previous Pap Date: ??NG HPV RESULTS: HPV mRNA E6/E7 ?? [id number] ?? Approved: 02/08/23 Negative ? REF RANGE: Negative CPT Codes: 87016 ICD Codes: Z34.81 02/06/2023 02/07/2023 6:4 6 AM EST Sparkle Rincon MD LAB AMB PATH/CYTO OR DERABLES [facility] [address], [place] from Last 3 Months or Most Recently Relevant to Health Maintenance Advance Directives * Full Code (Latest Code Status on File) Date Activated Date Inactivated Comments 09/11/2023 12:49 AM * Full Code Date Activated Date Inactivated Comments 09/08/2023 11:49 AM 09/11/2023 12:49 AM * Full Code Date Activated Date Inactivated Comments 07/16/2022 4:58 PM 09/08/2023 10:46 AM * Full Code Date Activated Date Inactivated Comments 07/16/2022 2:42 PM 07/16/2022 4:58 PM Question Answer Comments Decision Thoroughly Discussed with: Patient Care Teams Information Technology Associate Relationship Specialty Start Date End Date Saritha Rodrigez MD PCP - General 05/18/11 Sparkle Rincon MD [address] [place] [address] Obstetrics and Gynecology 04/16/23
--- OUTSIDE RECORDS SUMMARY | 2024-05-21 07:15 | XMS_ITS | Encounter Summary ---
Author Organization [facility] Address [address] [place] [address] Care Team Providers Care Manager Work Name Role Phone Saritha Rodrigez MD Primary Care Provider [phone] Jenna Snider MD Primary Care Provider [phone] Reason for Referral * MRI/CAT/PET Scan (Routine) - Closed Specialty Diagnoses / Procedures Referred By Contac t Referred To Contact Radiology Diagnoses Paresthesias Altered mental status, unspecified altered mental status type Procedures MRI brain W WO contrast Saritha Rodrigez MD [address] [place], [place] [address] [address] Phone: tel: fax: Referral ID Status Reason Start Date Expiration Date Visits Re quested Visits Authorized [id number] Closed 11/09/2021 12/14/2022 1 1 Encounter Details Date Type Department Care Team (Late st Contact Info) Description 11/09/2021 Orders Only [facility] [address] [place] [address] Saritha Rodrigez MD [address] [place], [place] [address] [address] Paresthesias (Primary Dx); Altered mental status, unspecified altered mental status type Social History Tobacco Use Types Packs/Day Years Used Date Smoking Tobacco: Never Smokeless Tobacco: Never Alcohol Use Standard Drinks/Week Comments Yes 2 (1 standard drink = 0.6 oz pur e alcohol) Hunger Vital Sign Answer Date Recorded Within the past 12 months, y ou worried that your food would run out before you got the money to buy more. Never true 11/06/19 22 Ran Out of Food in the Last Year Not on file 11/05/2021 PRAPARE - Transportation Answer Date Re corded In the past 12 months, has l ack of transportation kept you from medical appointments or from getting medications? No 11/05/2021 Lack of Transportation (Non-Medical) Not on file 11/05/2021 Comments Unknown Sex and Gender Information Value Date Recorded Sex Assigned at Female 02/17/2022 10:53 PM EST Legal Sex Female 11:52 AM EST Gender Identity Female 02/17/2022 10:53 PM EST Sexual Orientation Straight 02/17/2022 10 :53 PM EST COVID-19 Exposure Response Date Recorded In the last 10 days, have yo u been in contact with someone who was confirmed or suspected to have Coronavirus/COVID-19? No / Unsure 11/07/2021 2:49 PM EDT documented as of this encounter Plan of Treatment Upcoming Encounters Date Type Department Care Team (Late st Contact Info) Description 05/28/2024 1:40 PM EDT Office Visit [facility] Department of Internal Medicine [address] [place] [address] Jenna Snider MD [address] [place] [phone] Scheduled Orders Name Type Priority Associated Diagnoses Orde r Schedule MRI brain W WO contrast Imaging Routine Paresthesias Altered mental status, unspecified altered mental status type Expected: 11/09/2021, Expires: 05/10/2023 documented as of this encounter Visit Diagnoses Diagnosis Paresthesias- Primary Disturbance of skin sensation Altered mental status, unspecified altered mental status type documented in this encounter Care Teams Manager Work Relationship Specialty Start Date End Date Saritha Rodrigez MD [address] [place] [address] -[place] [address] PCP - General 05/07/17 01/08/24 Jenna Snider MD [address] [place] [phone] PCP - General Internal Medicine 01/09/24 documented as of this encounter
--- OUTSIDE RECORDS SUMMARY | 2024-05-21 07:15 | XMS_ITS | Encounter Summary ---
Author Organization [facility] Address [address] [place] [address] Care Team Providers Care Line Decorator Name Role Phone Sraitha Rodrigez MD Primary Care Provider [phone] Sparkle Rincon MD Unavailable [phone] Encounter Details Date Type Department Care Team (Late st Contact Info) Description 04/10/2017 Scanned Document [address] [place] [phone] Provider, Generic Social History Tobacco Use Types [...] on filedocumented in this encounter Care Teams Line Decorator Relationship Specialty Start Date End Date Saritha Rodrigez MD PCP - General 05/18/11 Sparkle Rincon MD [address] [place] [address] Obstetrics and Gynecology 04/16/23 documented as of this encounter
--- OUTSIDE RECORDS SUMMARY | 2024-05-21 07:15 | XMS_ITS | Encounter Summary ---
Author Organization [facility] Address [address] [place] [address] Care Team Providers Care Health Program Analyst Name Role Phone Saritha Rodrigez MD Primary Care Provider [phone] Jenna Snider MD Primary Care Provider [phone] Encounter Details Date Type Department Care Team (Late st Contact Info) Description 11/28/2022 Orders Only [facility] Department of Internal Medicine [address] [place], [place] [id number] Saritha Rodrigez MD [address] [facility] [place] [address] Leukopenia, unspecified type (Primary Dx) Social History Tobacco Use Types Packs/Day Years [...] Orientation Straight 02/17/2022 10 :53 PM EST documented as of this encounter Plan of Treatment Upcoming Encounters Date Type Department Care Team (Late st Contact Info) Description 05/28/2024 1:40 PM EDT Office Visit [facility] Department of Internal Medicine [address] [place] [address] Jenna Snider MD [address] [place] [phone] Scheduled Orders Name Type Priority Associated Diagnoses Orde r Schedule CBC (H/H, RBC, INDICES, WBC, PLT) (Q) Lab Routine Leukopenia, unspecified type 1 Occurrences starting 11/28/2022 until 11/29/2023 documented as of this encounter Visit Diagnoses Diagnosis Leukopenia, unspecified type- Primary documented in this encounter Care Teams Health Program Analyst Relationship Specialty Start Date End Date Saritha Rodrigez MD [address] [place] [address] -[place] [address] PCP - General 05/07/17 01/08/24 Jenna Snider MD [address] [place] [phone] PCP - General Internal Medicine 01/09/24 documented as of this encounter
--- OUTSIDE RECORDS SUMMARY | 2024-05-21 07:15 | XMS_ITS | Encounter Summary ---
Author Organization [facility] Address [address] [place] [address] Care Team Providers Care Routing Machine Operator Name Role Phone Saritha Rodrigze MD Primary Care Provider [phone] Jenna Snider MD Primary Care Provider [phone] Encounter Details Date Type Department Care Team (Late st Contact Info) Description 07/18/2017 Orders Only [facility] [address] [place] [address] Saritha Rodrigez MD [address] [place] [address] -[place] [address] Social History Tobacco Use Types Packs/Day Years Used Date Smoking Tobacco: Never Assessed Comments Unknown Sex and Gender Information Value [...] Description 05/28/2024 1:40 PM EDT Office Visit [facility] [address] [place] [address] Jenna Snider MD [address] [place] [phone] documented as of this encounter Visit Diagnoses Not on filedocumented in this encounter Care Teams Routing Machine Operator Relationship Specialty Start Date End Date Saritha Rodrigez MD [address] [place] [address] -[place] [address] PCP - General 05/07/17 01/08/24 Jenna Snider MD [address] [place] [phone] PCP - General Internal Medicine 01/09/24 documented as of this encounter
--- OUTSIDE RECORDS SUMMARY | 2024-05-21 07:15 | XMS_ITS ---
Author Name [facility] Organization Unknown Results Test Name/Text Value Interpretation Date Range Source Neutrophils num Bld Auto 9.11Thou/uL Above high normal [id number] 2 - 7.5 [facility] Monocytes num Bld Auto 0.65Thou/uL Normal [id number] 0.2 - 1.5 [facility] Eosinophil num Bld Auto 0.08Thou/uL Normal [id number] 0 - 0.7 [facility] WBC num Bld Auto 11.7Thou/uL Above high normal [id number] 4 - 11 [facility] MCHC RBC Auto-mCnc 34.5g/dL Normal [id number] 30 - 36 [facility] Monocytes/leuk NFr Bld Auto 5.5% Normal [id number] [facility] Hct VFr Bld Auto 30.7% Below low normal [id number] 35 - 47 [facility] RBC num Bld Auto 3.16Mil/uL Below low normal [id number] 4 - 5.4 [facility] RDW RBC Auto-Rto 13.1% Normal [id number] 11.5 - 14. 5 [facility] PMV Bld Auto 10.8fL Normal [id number] 7.5 - 12.[address] Eosinophil/leuk NFr Bld Auto 0.7% Normal [id number] [facility] MCH RBC Qn Auto 33.5pg Normal [id number] 26 - 34 H [facility] Basophils/leuk NFr Bld Auto 0.3% Normal [id number] [facility] Basophils num Bld Auto 0.03Thou/uL Normal [id number] 0 - 0.2 [facility] Platelet num Bld Auto 167Thou/uL Normal [id number] 150 - 450 [facility] Neutrophils/leuk NFr Bld Auto 77.6% Normal [id number] [facility] MCV RBC Auto 97fL Normal [id number] 80 - 100 [facility] T Lymphocytes/leuk NFr Bld Auto 15.2% Normal [id number] [facility] Lymphocytes num Bld Auto 1.78Thou/uL Normal [id number] 1.5 - 4.5 [facility] Imm Granulocytes/leuk NFr Bld Auto 0.7% Normal [id number] [facility] Hgb Bld-mCnc 10.6g/dL Below low normal [id number] 11.7 - 15.7 [facility] Imm Granulocytes num Bld Auto 0.08Thou/uL Normal [id number] 0 - 0.1 [facility] RBC num Bld Auto 3.26Mil/uL Below low normal [id number] 4 - 5.4 [facility] RDW RBC Auto-Rto 13.2% Normal [id number] 11.5 - 14. 5 [facility] PMV Bld Auto 11.6fL Normal [id number] 7.5 - 12.[address] MCH RBC Qn Auto 32.8pg Normal [id number] 26 - 34 H [facility] WBC num Bld Auto 12.9Thou/uL Above high normal [id number] 4 - 11 [facility] Platelet num Bld Auto 173Thou/uL Normal [id number] 150 - 450 [facility] MCHC RBC Auto-mCnc 33g/dL Normal [id number] 30 - 36 [facility] Hct VFr Bld Auto 32.4% Below low normal [id number] 35 - 47 [facility] MCV RBC Auto 99fL Normal [id number] 80 - 100 [facility] T Hgb Bld-mCnc 10.7g/dL Below low normal [id number] 11.7 - 15.7 [facility] aPTT PPP 21seconds Below low normal [id number] 25 - 36 [facility] INR PPP 0.9 Normal [id number] [facility] Prothrombin time 10.7seconds Normal [id number] 10 - 13. 5 [facility] Fibrinogen PPP-mCnc 500mg/dL Above high normal [id number] 148 - 435 [facility] TT imm Bovine Thrombin PPP 13.3seconds Normal [id number] 12.7 - 19.2 [facility] Anticoagulant NO ANTI COAGULANT MEDS Normal [id number] [facility] Anticoagulant NO ANTI COAGULANT MEDS Normal [id number] [facility] Anticoagulant NO ANTI COAGULANT MEDS Normal [id number] [facility] T. pallidum IgG+IgM Ser QI IA Normal [id number] - [facility] Neutrophils num Bld Auto 6.52Thou/uL Normal [id number] 2 - 7.5 [facility] Monocytes num Bld Auto 0.55Thou/uL Normal [id number] 0.2 - 1.5 [facility] Eosinophil num Bld Auto 0.09Thou/uL Normal [id number] 0 - 0.7 [facility] WBC num Bld Auto 9.4Thou/uL Normal [id number] 4 - 11 [facility] MCHC RBC Auto-mCnc 33.2g/dL Normal [id number] 30 - 36 [facility] Monocytes/leuk NFr Bld Auto 5.9% Normal [id number] [facility] Hct VFr Bld Auto 36.8% Normal [id number] 35 - 47 [facility] RBC num Bld Auto 3.77Mil/uL Below low normal [id number] 4 - 5.4 [facility] RDW RBC Auto-Rto 13% Normal [id number] 11.5 - 14. 5 [facility] PMV Bld Auto 11.6fL Normal [id number] 7.5 - 12.[address] Eosinophil/leuk NFr Bld Auto 1% Normal [id number] [facility] Qn Auto 32.4pg Normal [id number] 26 - 34 H [facility] Basophils/leuk NFr Bld Auto 0.3% Normal [id number] HHT Basophils num Bld Auto 0.03Thou/uL Normal [id number] 0 - 0.2 [facility] Platelet num Bld Auto 209Thou/uL Normal [id number] 150 - 450 [facility] Neutrophils/leuk NFr Bld Auto 69.6% Normal [id number] [facility] MCV RBC Auto 98fL Normal [id number] 80 - 100 [facility] T Lymphocytes/leuk NFr Bld Auto 22.6% Normal [id number] [facility] Lymphocytes num Bld Auto 2.12Thou/uL Normal [id number] 1.5 - 4.5 [facility] Imm Granulocytes/leuk NFr Bld Auto 0.6% Normal [id number] CCT Hgb Bld-mCnc 12.2g/dL Normal [id number] 11.7 - 15.7 HH CCT Imm Granulocytes num Bld Auto 0.06Thou/uL Normal [id number] 0 - 0.1 [facility] Report will be sent directly from [facility] to provider's office. Normal [id number] [facility] History of Medication Use Medication Directions Dispensed Refills Start Date End Date Stat lanolin (DTT-F-QIVKGX) cream Apply topically as needed (nipple care). 09/12/2023 10/13/2023 active Cough DM ER 30 mg/5 mL oral suspension,extended release TAKE 20 MG (3.3MLS) ORALLY 3 TIMES A DAY NEEDED FOR COUGH FOR 5 DAYS 12/11/2022 completed fluconazole 150 mg tablet Take one tablet today and one tablet in three days. 11/02/2018 completed Lidocaine Viscous 2 % mucosal solution 11/02/2018 comple mallory ibuprofen 400 mg tablet 11/02/2018 completed fluocinonide 0.05 % topical cream 08/19/2016 completed GIANVI 3-0.02 MG per tablet 09/27/2015 active benzonatate 100 mg capsule 11/02/2018 completed diazepam 5 mg tablet TAKE 1 TABLET BY MOUTH EVERY 6 HOURS NEEDED FOR ANXIETY OR MUSCLE SPASMS 01/11/2022 completed ferrous sulfate 325 mg (65 mg iron) tablet,delayed release TAKE 1 TABLET BY MOUTH DAILY. TAKE 2 HOURS BEFORE OR 4 HOURS AFTER ACID REDUCERS. TAKE 1 TABLET BY MOUTH DAILY. TAKE 2 HOURS BEFORE OR 4 HOURS AFTER ACID REDUCERS. completed None recorded. (No additional sig information) completed witch mercedes-glycerin ([place]) pad Apply topically as needed for irritation. 09/12/2023 10/13/2023 active ibuprofen 600 mg tablet TAKE 1 TABLET 4 TIMES A DAY (EVERY 6 HOURS) NEEDED FOR MILD TO MODERATE PAIN,FEVER,HEADAC HE 10/27/2023 completed diazepam (VALIUM) 5 MG tablet Take 1 tablet (5 mg total) by mouth 4 times daily (every 6 hours) as needed for anxiety or muscle spasms. 07/12/2021 active Cipro 500 mg tablet Take 1 tablet every 12 hours by oral route for 3 days. 01/05/2015 active ibuprofen (MOTRIN) 600 MG tablet Take 1 tablet (600 mg total) by mouth 4 times daily (every 6 hours) as needed for mild pain, moderate pain, fever or headaches. 09/12/2023 10/13/2023 active doxycycline monohydrate 100 mg capsule 08/19/2016 completed dibucaine (NUPERCAINAL) 1 % ointment Apply topically 4 times daily (every 6 hours) as needed (hemorrhoidal irritation). 09/12/2023 10/13/2023 active ferrous sulfate 325 mg (65 mg iron) tablet,delayed release TAKE 1 TABLET BY MOUTH DAILY. TAKE 2 HOURS BEFORE OR 4 HOURS AFTER ACID REDUCERS. 2022 09/17/2022 completed ibuprofen (MOTRIN) 800 mg tablet Take 1 tablet (800 mg total) by mouth 3 times daily (every 8 hours) as needed for mild pain or moderate pain. 07/17/2022 08/27/2022 active albuterol sulfate HFA 90 mcg/actuation aerosol inhaler 11/02/2018 completed F-Zbkaqquejfcb-B2-B 12 3-35-2 MG Tab Take 1 tablet by mouth 2 (two) times a day. 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 [facility] Missed active ProblemAct [facility] Attention or concentration deficit active EncounterDiagnosisAct [facility] Family history of hemochromatosis active ProblemAct [facility] and not yet delivered in third trimester active ProblemAct [facility] Otitis media active ProblemAct [facility] Atypical squamous cells of undetermined significance (ASCUS) on Papanicolaou smear of cervix active ProblemAct [facility] Partial hydatidiform mole active ProblemAct [facility] Atypical squamous cells of undetermined significance on cervical Papanicolaou smear active ProblemAct [facility] Immunizations Vaccine Date Source Lot Number Status Influenza TIV (IM) 12/01/2012 [facility] comple mallory Influenza TIV (IM) 12/31/2012 [facility] comple mallory TD Preservative Free 10/31/2003 [facility] comp leted DTaP, Unspecified 02/11/1990 [facility] complet ed DTaP, Unspecified 08/15/1993 [facility] complet ed Tdap 12/31/2011 [facility] [id number] completed MMR 11/20/1989 [facility] completed Meningococcal, Unspecified 11/19/2006 [facility] completed OPV 1988 [facility] completed Influenza, Unspecified 01/02/2021 [facility] co mpleted DTaP 5 08/15/1993 [facility] completed OPV 10/15/1993 [facility] completed HPV, Quadrivalent 02/18/2007 [facility] complet ed OPV 02/11/1990 [facility] completed Pneumococcal Polysaccharide PCV-23 02/15/2014 [facility] [id number] completed Influenza, MDCK, quadrivalent, PF 02/06/2023 [facility] 37 0674 completed [id number] Influenza Inactivated/Split Preservative Free IM 02/06/2012 [facility] [id number] completed Influenza Inactivated/Split Preservative Free IM 12/01/2012 [facility] completed Meningococcal MCV4P 11/19/2006 [facility] compl eted Influenza Inactivated/Split Preservative Free IM 12/31/2012 [facility] completed HPV, Unspecified 11/19/2006 [facility] complete d DTaP, Unspecified 08/29/1993 [facility] complet ed Influenza TIV (IM) 02/06/2012 [facility] [id number] comple mallory HPV, Unspecified 02/18/2007 [facility] complete d COVID-19 mRNA (Clinked) 10/16/2020 [facility] co mpleted DTaP, Unspecified 1988 [facility] complet ed DTaP 5 02/11/1989 [facility] completed MMR 10/19/1999 [facility] completed DTaP 5 08/29/1993 [facility] completed Tetanus 10/31/2003 [facility] completed DTaP, Unspecified 02/11/1989 [facility] complet ed DTaP 5 02/11/1990 [facility] completed Hepatitis B 10/19/1999 [facility] completed Influenza TIV (IM) 12/16/2013 [facility] comple mallory DTP / HiB 10/20/1989 [facility] completed Hepatitis B 09/18/2000 [facility] completed DTaP 5 1988 [facility] completed COVID-19 mRNA (PFIZER) 11/06/2020 [facility] co mpleted HPV, Quadrivalent 11/19/2006 [facility] complet ed Influenza, Quadrivalent 12/22/2014 [facility] c ompleted DTaP 5 1988 [facility] completed DTaP, Unspecified 1988 [facility] complet ed OPV 1988 [facility] completed Tdap 09/11/2023 [facility] completed Influenza Inactivated/Split Preservative Free IM 12/16/2013 [facility] completed Encounters Encounter Type Encounter Reason Primary Diagnosis Location Date Ambulatory Follow-up Follow-up [facility] 02/27/20 24 Ambulatory Encounter for full-t erm uncomplicated delivery Encounter for full-term uncomplicated delivery [facility], [facility] 10/27/19 24 Ambulatory [place] 09/17/19 24 Inpatient Encounter for full-t erm uncomplicated delivery Encounter for full-term uncomplicated delivery [place] 09/08/19 24 Ambulatory Supervision of elder ly multigravida, third trimester Supervision of elderly multigravida, third trimester [facility] 09/08/19 24 Ambulatory Supervision of elder ly multigravida, third trimester Supervision of elderly multigravida, third trimester [facility] 09/04/19 24 Ambulatory Encounter for suprvs n of normal , third trimester Encounter for suprvsn of normal , third trimester [facility], [facility] 08/28/19 24 Ambulatory Supervision of elder ly multigravida, third trimester Supervision of elderly multigravida, third trimester [facility], [facility] 08/23/19 24 Ambulatory Encounter for suprvs n of normal , third trimester Encounter for suprvsn of normal , third trimester [facility], [facility] 08/15/19 24 Ambulatory Encntr for suprvsn o f normal preg, unsp, third trimester Encntr for suprvsn of normal preg, unsp, third trimester [facility], [facility] 07/30/19 24 Ambulatory Encntr for suprvsn o f normal preg, unsp, third trimester Encntr for suprvsn of normal preg, unsp, third trimester [facility], [facility] 07/19/19 24 Ambulatory Supervision of elder ly primigravida, unspecified trimester Supervision of elderly primigravida, unspecified trimester [facility] 07/16/19 24 Ambulatory Encntr for suprvsn o f normal first preg, third trimester Encntr for suprvsn of normal first preg, third trimester [facility], [facility] 07/04/19 24 Ambulatory Encntr for suprvsn o f normal first preg, second trimester Encntr for suprvsn of normal first preg, second trimester [facility], [facility] 06/19/19 24 Ambulatory Maternal care for (s uspected) abnormality and damage, unspecified, not applicable or unspecified Maternal care for (suspected) abnormality and damage, unspecified, not applicable or unspecified [facility] 06/18/19 24 Ambulatory Supervision of elder ly multigravida, second trimester Supervision of elderly multigravida, second trimester [facility], [facility] 05/29/19 24 Ambulatory Encntr for suprvsn o f normal preg, unsp, second trimester Encntr for suprvsn of normal preg, unsp, second trimester [facility], [facility] 04/30/19 24 Ambulatory Supervision of elder ly primigravida, unspecified trimester Supervision of elderly primigravida, unspecified trimester [facility] 04/16/19 24 Ambulatory Encntr for suprvsn o f normal first preg, first trimester [facility], [facility] 04/02/19 24 Ambulatory Encounter for suprvs n of normal , first trimester [facility], [facility] 02/29/20 23 Ambulatory Encounter for suprvs n of normal , first trimester [facility], [facility] 02/29/20 23 Ambulatory Encounter for pregna ncy test, result positive [facility], [facility] 02/07/20 23 Ambulatory Encounter for pregna ncy test, result positive [facility], 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 01/24/20 23 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 12/13/19 23 Ambulatory Methylenetetrahydrof olate reductase deficiency [facility], [facility] 12/13/19 23 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[facility] 12/07/19 23 Ambulatory Atyp squam cell of u ndet signfc cyto smr crvx (ASC-US) [facility], [facility] 11/22/19 23 Ambulatory [facility] 09/21/19 23 Ambulatory [facility] 08/02/19 23 Ambulatory Missed [place] [employer] 07/17/19 23 Ambulatory [facility] 07/17/19 23 Ambulatory Encounter for other preprocedural examination [employer] 07/13/19 23 Ambulatory [facility] 07/13/19 23 Ambulatory [facility] 07/13/19 23 Ambulatory [facility] 06/28/19 23 Ambulatory [facility] 06/28/19 23 Ambulatory [facility] 04/02/19 23 Ambulatory [facility] 01/12/20 22 Ambulatory [facility] 11/08/19 22 Ambulatory Prominent ear [facility] 08/01/19 22 Ambulatory Prominent ear [facility] 07/18/19 22 Ambulatory Prominent ear [facility] 07/11/19 22 Ambulatory Encounter for general adult medical examination without abnormal findings [facility] 02/08/20 21 Ambulatory [facility] 01/09/20 21 Care Team Organization Name Specialty Phone Email Start Date End Da te [facility] JESSICA TAYLOR Primary Care 02/08 [facility] JESSICA TAYLOR Primary Care 02/05/2024 [facility] 01/22/2022 [facility] JERRELL CHOW Primary Care 022 [facility] Primary [facility] Jerrell Cates Primary Care 11/07/2021 [facility] [facility] JERRELL CHOW Primary Care 07/31/2021 [employer] Jerrell Cates Primary Care 07/10/2021 07/18/19 22 [facility] JERRELL CHOW Primary Care 021 02/07/2021 [facility] 01/08/202101/11
--- OUTSIDE RECORDS SUMMARY | 2024-05-21 07:15 | XMS_ITS | Encounter Summary ---
Author Organization [facility] Address [address] [place] [address] Care Team Providers Care Mule Spinner Name Role Phone Saritha Rodrigez MD Primary Care Provider [phone] Sparkle Rincon MD Unavailable [phone] Encounter Details Date Type Department Care Team (Late st Contact Info) Description 10/02/2017 Scanned Document [facility] [place] [address] [place] [address] Patrice Hensley PA [address] [place] [address] Social History Tobacco Use Types Packs/Day Years [...] on filedocumented in this encounter Care Teams Mule Spinner Relationship Specialty Start Date End Date Saritha Rodrigez MD PCP - General 05/18/11 Sparkle Rincon MD [address] [facility] [address] [place] [address] Obstetrics and Gynecology 04/16/23 documented as of this encounter
--- OUTSIDE RECORDS SUMMARY | 2024-05-21 07:16 | XMS_ITS | Clinical Summary ---
Author Organization [facility] Address [address] [place] [address] Care Team Providers Care Emergency Department Name Role Phone Jenna Snider MD Primary Care Provider [phone] Allergies Active Allergy Reactions Criticality Noted Date Comments Cephalexin Hives Medium 08/24/2015 Sulfamethoxazole-Trimethoprim Itching,Hives Medium 03/2017 Medications * This document contains information received from the source organization and may not represent a complete record from that organization. drospirenone-ethi nyl estradioL (Elsa, 28,) 3-0.02 mg per tablet Take 1 tablet by mouth in the morning. Active amphetamine-dextr oamphetamine XR (ADDERALL XR) 5 mg 24 hr capsuleIndication s:Attention or concentration deficit Take 1 capsule (5 mg total) by mouth in the morning. Max Daily Amount: 5 mg. 30 capsule 5 05/27/19 25 Active amphetamine-dextr oamphetamine XR (ADDERALL XR) 10 mg 24 hr capsuleIndication s:Attention or concentration deficit Take 1 capsule (10 mg total) by mouth in the morning. Max Daily Amount: 10 mg. 30 capsule 5 05/24/19 25 Active amphetamine-dextr oamphetamine XR (ADDERALL XR) 5 mg 24 hr capsuleIndication s:Attention or concentration deficit Take 1 capsule (5 mg total) by mouth in the morning. Max Daily Amount: 5 mg. 30 capsule 4 04/23/19 25 Discontinu ed(Dose adjustment ) amphetamine-dextr oamphetamine XR (ADDERALL XR) 5 mg 24 hr capsuleIndication s:Attention or concentration deficit Take 1 capsule (5 mg total) by mouth in the morning. Max Daily Amount: 5 mg. 30 capsule 5 04/26/19 25 Active Problems Problem Noted Date Diagnosed Date Annual physical exam 02/27/2024 Assessment & Plan (02/27/2024 9:05 AM EST): Last blood work Vandana: CBC showed low Hgb, no history of iron deficiency. - Order comprehensive blood work: CBC, electrolytes, renal/liver function, lipids, HbA1c, iron panel (incl. TIBC), B12, Vit D - Complete blood work at hospital before next appointment - Annual exam scheduled for next visit in 3 months Family history of hemochromatosis 02/01/2019 Overview (02/01/2019): Pt tested neg Atypical squamous cells of u ndetermined significance (ASCUS) on Papanicolaou smear of cervix 11/10/2018 Attention deficit disorder 05/12/2013 Assessment & Plan (02/27/2024 9:05 AM EST): Patient reports focus issues post-. ADHD history managed with Adderall since 9th grade (Dr. Rodrigez). She discontinued it 03/2022 for planning. Previous stable dose: 15 mg (reduced from 25 mg). - Restart Adderall 5 mg daily x 3 months - 3 separate 30-day Rx (no refills): 1st fill 02/26, 2nd fill 03/27 - F/U in 3 months for dose adjustment and annual exam - Patient informed of [id number] F/U while on medication - Rx sent to [facility], [facility] Resolved Problems Problem Noted Date Diagnosed Date Resolved Date Migraine without aura or status migrainosus 02/01/2019 02/07/2020 Encounters Date Type Department Care Team Description 04/09/2024 Orders Only [facility] Department of Internal Medicine [address] [place] [address] Jenna Snider MD Attention or concentration deficit 02/27/2024 8:20 AM EST Office Visit [facility] Department of Internal Medicine [address] [place] [address] Jenna Snider MD Attention or concentration deficit (Primary Dx); Annual physical exam from Last 3 Months Immunizations Name Administration Dates Next Due COVID-19 mRNA (PFIZER) 11/06/2020,10/16/2020 DTP / HiB 10/20/1989 DTaP 5 08/29/1993, 4,02/11/1990,02/11/19 89,1988,1988 DTaP, Unspecified 08/29/1993, 4,02/11/1990,02/11/19 89,1988,1988 HPV, Quadrivalent 02/18/2007,11/19/2006 HPV, Unspecified 02/18/2007,11/19/2006 Hepatitis B 09/18/2000,10/19/1999 Influenza TIV (IM) 12/16/2013, 3,12/01/2012,02/06/20 12 Influenza, Quadrivalent 12/22/2014 Influenza, Unspecified 01/02/2021 MMR 10/19/1999,11/20/1989 Meningococcal MCV4P 11/19/2006 Meningococcal, Unspecified 11/19/2006 OPV 10/15/1993, 0,1988,10/21/18 89 Pneumococcal Polysaccharide PCV-23 02/15/2014 TD Preservative Free 10/31/2003 Tdap 12/31/2011 Tetanus 10/31/2003 Family History Medical History Relation Comments Heart disease Father Lung cancer Father No Known Problems Mother Hemochromatosis Paternal Grandmother Relation Status Comments Father Mother Alive Paternal Grandmother Social History Tobacco Use Types Packs/Day Years [...] Orientation Straight 02/17/2022 10 :53 PM EST Last Filed Vital Signs Vital Sign Reading Time Taken Comments Blood Pressure 110/68 02/27/2024 8:18 AM EST Pulse 65 02/27/2024 8:18 AM EST Temperature 37.3 ??C (99.2 ??F) 02/27/2024 8:18 AM ES T Respiratory Rate - - Oxygen Saturation 98% 02/27/2024 8:18 AM EST Inhaled Oxygen Concentration - - Weight 80.9 kg (178 lb 6.4 oz) 02/27/2024 8:18 A M EST Height 165.1 cm (5' 5 ) 02/27/2024 8:18 AM EST Body Mass Index 29.69 02/27/2024 8:18 AM EST Plan of Treatment Upcoming Encounters Date Type Department Care Team (Late st Contact Info) Description 05/28/2024 1:40 PM EDT Office Visit [facility] Department of Internal Medicine [address] [place] [address] Jenna Snider MD [address] [place] [address] Health Maintenance Due Date Last Done Comments HIV Screening 1988 Hepatitis C Screening 2006 HPV Vaccines (3 - 3-dose series) 05/20/2007 02/18/2007, 02/18/2007, 11/19/2006, Additional history exists COVID-19 Vaccine ( season) 2023 11/06/2020, 10/16/2020 Influenza Vaccine (#1) 2023 , 01/02/2021, 12/22/2014, Additional history exists Pap Smear 02/06/2026 02/06/2023, 0 06/2021, 01/08/2021, Additional history exists Cervical Cancer Screening 02/07/2028 HPV/Cotest 02/07/2028 02/06/2023, 0 06/2021, 01/08/2021, Additional history exists DTaP,Tdap,and Td Vaccines (8 - Td or Tdap) 06/18/2033 06/19/2023, 12/31/2011, 10/31/2003, Additional history exists Zoster Vaccines (1 of 2) 2038 MMR Vaccines Completed 10/19/1999, 11/20/1989 Hepatitis B Vaccines Completed 09/18/2000, 10/19/19 00 Meningococcal Vaccine Completed 11/19/2006, 007 Pneumococcal Vaccine: Pediatrics (0 to 5 Years) and At-Risk Patients (6 to 64 Years) Aged Out 02/15/2014 No longer eligible based on patient's age to complete this topic Hepatitis A Vaccines Aged Out No long er eligible based on patient's age to complete this topic Insurance - OUT OF STATE Care Teams Emergency Department Relationship Specialty Start Date End Date Jenna Snider MD [address] [place] [phone] PCP - General Internal Medicine 01/09/24
--- OUTSIDE RECORDS SUMMARY | 2024-05-21 07:16 | XMS_ITS | Encounter Summary ---
Author Organization Formerly [facility] Address [address] [place] [address] Care Team Providers Care Facing Baster Name Role Phone Saritha Rodrigez MD Primary Care Provider [phone] Sparkle Rincon MD Unavailable [phone] Encounter Details Date Type Department Care Team (Late st Contact Info) Description 12/13/2014 Scanned Document [address] [id number] Provider, Generic Social History Tobacco Use Types Packs/Day Years Used Date Smoking Tobacco: Never Alcohol Use Standard Drinks/Week Comments Not Asked 0 (1 standard drink = 0.6 oz [...] on filedocumented in this encounter Care Teams Facing Baster Relationship Specialty Start Date End Date Saritha Rodrigez MD PCP - General 05/18/11 Sparkle Rincon MD [address] [place] [address] Obstetrics and Gynecology 04/16/23 documented as of this encounter
--- OUTSIDE RECORDS SUMMARY | 2024-05-21 07:16 | XMS_ITS | Encounter Summary ---
Author Organization [facility] Address [address] [place] [address] Care Team Providers Care Vice President Network Name Role Phone Jenna Snider MD Primary Care Provider [phone] Encounter Details Date Type Department Care Team (Late st Contact Info) Description 04/09/2024 Orders Only [facility] Department of Internal Medicine [address] [id number] Jenna Snider MD [address] [place] [phone] Attention or concentration deficit Social History Tobacco Use Types Packs/Day Years [...] Description 05/28/2024 1:40 PM EDT Office Visit [facility] Department of Internal Medicine [address] [place] [address] Jenna Snider MD [address] [place] [phone] documented as of this encounter Visit Diagnoses Diagnosis Attention or concentration deficit documented in this encounter Care Teams Vice President Network Relationship Specialty Start Date End Date Jenna Snider MD [address] [place] [phone] PCP - General Internal Medicine 01/09/24 documented as of this encounter
--- OUTSIDE RECORDS SUMMARY | 2024-05-21 07:16 | XMS_ITS | Data Portability ---
Author Organization [place] [facility], [facility] Address [address] [place] [address] Care Team Providers Care Wire Bender Hand Name Role Phone JERRELL CHOW Primary Care Provider [phone] Assessment Encounter Date Assessment Date Assessment LastModified by Organization Details LastModified Time 10/27/2023 10/27/2023 exam: VAVD: doing well. Bottle feeding. Denies depression. control: desires to restart Jen: advised condoms through first pill pack. Will do 3 month f/u OCP check. History of partial mole: will order bhcg. Surgical path from placenta: neg for mole. Not available 10/27/2023 13:22:04 Plan of Treatment Reminders Order Date Submit Date Provider Last Modified By Organization Details Last Modified Time Details Appointments None recorded . Lab urinalys is, dipstick 2023 024 [email or web address] In-Office Order, Internal Use Only DO Not Attach Compendium DO Not Attach Compendium, Do Not Delete/merge, [id number] 13:22:09 hemoglob in (Hb), fingerst ick, blood 2023 024 [email or web address] In-Office Order, Internal Use Only DO Not Attach Compendium DO Not Attach Compendium, Do Not Delete/merge, [id number] 4 13:22:10 beta-HCG , quantita tive, serum or plasma 2023 [facility]24 [facility] [address] [facility], [place], [address] 4 11:10:49 streptoc occus group B DNA 2023 024 YENNI [facility], [address] [facility], [place], [address] 4 10:22:45 Referral None recorded . Procedures None recorded . Surgeries None recorded . Imaging None recorded . Medication Orders JEN (28) 3 mg-0.02 mg tablet 2023 024 [id number], [address] [place], [address], 09:26:03 Patient TargetsNo targets recorded. Patient Instructions Encounter Date Encounter Id Patient Instructions Last Modified By Organization Details Last Modified Time 10/27/2023 [id number] depression education [email or web address] Not available 10/27/2023 13:22:06 Reason for Referral None Reported. Results Created Date Observation Date Name Description Value Unit Range Abnormal Flag Note LastModifiedBy Organization Detail LastModifiedTime 07/16/19 24 07/18/2023 ANTIB CIERRA ID, TITER , AND TYPIN G, RBC antibody identificati on: ANTI-L ITTLE C negati ve abnormal Not Available [facility] [address], [address], 07/18/2023 14:33:29 07/16/19 24 07/18/2023 ANTIB CIERRA ID, TITER , AND TYPIN G, RBC titer 1:2 Not Available [facility] [address], [address], 07/18/2023 14:33:29 07/16/19 24 07/18/2023 ANTIB CIERRA ID, TITER , AND TYPIN G, RBC comment This test is inten ded to ident swapna IgG antib odies impli cated in hemol ytic disea ses of the balta rn. It does not routi екатерина detec t IgM antib odies and thus is not suita ble for scree yue for irreg ular antib odies prior to trans fusio n. This assay is a scree yue test for the detec tion of red blood cell antib odies . The test is not to be used for pretr ansfu devante scree yue or for the medic al manag ement of an alloi mmuni jononicolás garibay. Not Available [facility] [place] [facility] [address], [address], 07/18/2023 14:33:29 08/15/19 24 08/15/2023 GROUP B STREP DNA PCR group B strep DNA PCR Positi ve negati ve abnormal Not Available [facility] [address] [place], [address] 08/18/2023 10:22:45 08/15/19 24 08/15/2023 GROUP B STREP DNA PCR group B strep source Vagina l/Rect al Not Available [facility] [address] [place], [address] 08/18/2023 10:22:45 08/15/19 24 08/19/2023 ANTIB CIERRA ID, TITER , AND TYPIN G, RBC antibody identificati on: ANTI-L ITTLE C negati ve abnormal Not Available [facility] [place] [facility] [address], [place], [address], 08/19/2023 06:43:54 08/15/19 24 08/19/2023 ANTIB CIERRA ID, TITER , AND TYPIN G, RBC titer SEE BELOW <1:1 Not Available [facility] [place] [facility] [address], [address], 08/19/2023 06:43:54 08/15/19 24 08/19/2023 ANTIB CIERRA ID, TITER , AND TYPIN G, RBC comment This test is inten ded to ident swapna IgG antib odies impli cated in hemol ytic disea ses of the balta rn. It does not routi екатерина detec t IgM antib odies and thus is not suita ble for scree yue for irreg ular antib odies prior to trans fusio n. This assay is a scree yue test for the detec tion of red blood cell antib odies . The test is not to be used for pretr ansfu devante scree yue or for the medic al manag ement of an alloi mmuni zed pregn [place]. Not Available [facility] [place] [facility] [address] [facility] [address] [facility] [address], [place], [address], 08/19/2023 06:43:54 10/27/19 24 10/27/2023 urina lysis , dipst ick Interpretati on negati ve Not Available In-Office Order Internal Use Only DO Not Attach Compendium DO Not Attach Compendium, Do Not Delete/merge, [id number] 10/27/2023 13:01:36 10/27/19 24 10/27/2023 hemog lobin (Hb), finge rstic k, blood HGB 13.0 Not Available In-Office Order Internal Use Only DO Not Attach Compendium DO Not Attach Compendium, Do Not Delete/merge, [id number] 10/27/2023 13:01:36 07/18/19 24 07/14/2023 US, obste tric, mater nal evalu ation + anato my No observ ation record ed. [email or web address] [place] [address] [address] [facility], [place], [address], 07/18/2023 11:35:28 Result Notes None recorded. Problems Name Problem SNOMED Code Status Onset Date Resolution Date Notes Provider Name and Address Organization Details Recorded Time Atypical squamous cells of undeterm ined signific ance on cervical Papanico laou smear 107627747 Active 2018 2019 Pap: ASCUS HPV+ 2019: Colpo 12 o'clock biopsy and ECC: benign 2020: Colpo: ECC neg INDIANA TOVAR MD [address] [facility], [address] [place], [address] , [facility] 2 15:17:46 Pregnanc y 96362459 Completed 202207/16/2022 INDIANA TOVAR MD [address] [facility], [address] [facility], [place], [address] , [facility] 3 17:53:18 Exposure to herpes simplex virus Completed partner with genital HSV history, he is on valtrex suppress ion daily. Patient with no prior outbreak s. INDIANA TOVAR MD [address] [facility], [address] [place] [address], [place], [place], [address] [place] [address] 4, [facility] 3 17:53:14 Abnormal cervical Papanico laou smear [id number] Completed ASCUS HPV+, normal colpo, repeat pap postpart um INDIANA TOVAR MD [address] [facility], [address] [place] [address], [address] [place] [address] 4, [facility] 3 17:53:14 Maternal drug exposure 98906032 Completed everythi ng nima neal at [facility], repeat next visit INDIANA TOVAR MD 175 [facility], [address] [place] [address], [address] [place] [address] 4, [facility] 3 17:53:14 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 INDIANA TOVAR MD [address] [facility], [address] [place] [address], [address] [place] [address] 4, [facility] 4 13:14:19 Uterus arcuatus 04321967 Completed INDIANA TOVAR MD [address] [facility], [address] [place] [address], [address] [place] [address] 4, [facility] 4 13:14:19 High risk pregnanc y 47769813 Completed INDIANA TOVAR MD [address] [facility], [address] [place] [address], [address] [place] [address] 4, [facility] 4 13:14:19 Molar pregnanc y Completed Hx of molar pregnanc y: send placenta to patholog y INDIANA TOVAR MD [address] [facility], [address] [place] [address], [address] [place] [address] 4, [facility] 4 13:14:19 Advanced maternal age 814535529 Completed Level II / INDIANA TOVAR MD [address] [facility], [address] [place] [address], [address] [place] [address] 4, [facility] 4 13:14:19 Inguinal hernia 935750253 Completed bilatera l repair: age 3 INDIANA TOVAR MD [address] [facility], [address] [place] [address], [address] [place] [address] 4, [facility] 4 13:14:19 Exposure to herpes simplex virus Completed history of genital herpes: labs ordered for patient: discusse d valtrex at 36 wks for preventi on of infectio n INDIANA TOVAR MD [address] [facility], [address] [place] [address], [address] [place] [address] 4, [facility] 4 13:14:19 Herpes simplex type 1 infectio n [id number] Completed HSV1: equivoca l-repeat ing in one month: Labs 03/26/23 neg INDIANA TOVAR MD [address] [facility], [address] [place] [address], [address] [place] [address] 4, [facility] 4 13:14:19 Antibody measurem ent [id number] Completed Antibody ID Anti-c: new blood sample went to [facility]: Titer 2: will repeat titers INDIANA TOVAR MD [address] [facility], [address] [place] [address], [address], [facility] 4 13:14:19 Placenta previa 08898810 Completed Level II u/s: s=d EFW 57% 4 lbs 6 oz low lying placenta resolved INDIANA TOVAR MD [address] [facility], [address] [place] [address], [address], [facility] 4 13:14:19 Problem Notes None recorded. Procedures Surgical History Date Name Laterality Status Provider Name and Address Organization Details Recorded Time 02/07/20 Date of Last Pap Smear completed Lani Fregoso [facility] 02/06/2023 11:15:43 12/13/19 23 Saline Infusion Sonogram (SIS) completed INDIANA TOVAR MD [address], [address], [facility] 12/12/2022 15:21:03 12/07/19 23 Telemedicine Visit completed INDIANA TOVAR MD [address] [place] [address], [address], [facility] 12/06/2022 13:47:01 11/22/19 23 Telemedicine Visit completed INDIANA TOVAR MD [address] [place] [address], [address], [facility] 11/21/2022 08:57:17 07/17/19 23 Dilation & suction completed INDIANA TOVAR MD [address], [address], [facility] 07/16/2022 17:54:31 07/13/19 23 OVPN (0502F ) completed Bobbi Melvin [facility] 07/12/2022 11:15:25 06/28/19 23 P4P-OB (0500F) completed Tracy Murray [facility] 06/27/2022 10:27:22 04/02/19 23 Colposcopy Procedure Note completed INDIANA TOVAR MD 175 [facility], [address] [place] [address], [address], [place] - [facility] 04/02/2022 15:35:26 04/02/19 23 Colposcopy completed Crystal Ildefonso [place] - [facility] 04/02/2022 15:14:11 03/10/19 21 Other completed Crystal Ildefonso CT - [facility] 01/11/2022 14:56:47 02/19/20 20 Colposcopy Procedure Note completed INDIANA TOVAR MD [address] [facility], [address] [place] [address], [address], [facility] - [facility] 02/19/2020 09:22:38 12/16/19 19 Colposcopy Procedure Note completed INDIANA TOVAR MD [address] [facility], [address] [place] [address], [address], [facility] - [facility] 12/15/2018 13:46:01 08/20/19 17 [id number] completed [place] Ildefonso [place] [facility] 08/19/2016 15:43:58 08/20/19 17 [id number] completed Crystal [facility] 08/19/2016 15:43:56 08/20/19 17 [id number] completed Crystal Ildefonso CT - [facility] 08/19/2016 15:44:00 03/01/20 15 [id number] completed Kayla Emerson [place] - [facility] 03/01/2015 08:36:38 03/01/20 15 [id number] completed Kayla Emerson [place] - [facility] 03/01/2015 08:36:38 03/01/20 15 [id number] completed Kayla Emerson [place] - [facility] 03/01/2015 08:36:38 03/01/20 15 [id number] completed Kayla Emerson [place] [facility] 03/01/2015 08:36:38 03/10/18 95 Hernia Repair completed ROB GRANADOS MD [address] [facility], 3rd Floor, [place], [address], [place] [facility] 06/27/2022 11:05:29 Imaging Results Imaging Date Name Status LastModified by Organiz ation Details LastModified Time 07/14/2023 US, obstetric, maternal evaluation + anatomy completed [email or web address] [address], [place], [address], 07/18/2023 11:35:28 Procedure Notes None recorded. Medical Equipment None Reported. Allergies Allergen ID Allergen Name Allergen Category Reaction Reaction Severity Criticality Documentation Date Start Date Code Code System Note Provider Name and Address Organization Details Recorded Time [id number] Bactrim medicatio n itching moderate Not available 03/14/2017 62956 9 RxNorm Capo garza null, [place] - [facility] 8 10:11:37 Medications Name Sig Start Date Stop Date Status Note LastModified by Organization Details LastModified Time prednisone 10 mg tablet 11/02 completed Not Available Not Available Not Available azithromyci n 250 mg tablet 11/02 completed Not Available Not Available Not Available ibuprofen 800 mg tablet TAKE 1 TABLET BY MOUTH 3 TIMES A DAY EVERY 8 HOURS NEEDED FOR MILD - MODERATE PAIN 08/01 completed Not Available Not Available Not Available Lidocaine Viscous 2 % mucosal solution 11/02 completed Not Available Not Available Not Available ofloxacin 0.3 % eye drops PUT 1 DROP INTO BOTH EYES 4 TIMES A DAY FOR 1 WEEK 01/07 completed Not Available Not Available Not Available fluconazole 150 mg tablet Take one tablet today and one tablet in three days. 11/02 completed Not Available Not Available Not Available prednisone 20 mg tablet 11/02 completed Not Available Not Available Not Available sulfamethox azole 800 mg-trimetho prim 160 mg tablet Take 1 tablet every 12 hours by oral route for 3 days. 09/16 completed Not Available Not Available Not Available prednisolon e acetate 1 % eye drops,suspe nsion PUT 1 DROP INTO BOTH EYES 4 TIMES A DAY FOR 1 WEEK 01/07 completed Not Available Not Available Not Available benzonatate 100 mg capsule 11/02 completed Not Available Not Available Not Available doxycycline monohydrate 100 mg capsule 08/19 completed Not Available Not Available Not Available erythromyci n 5 mg/gram (0.5 %) eye ointment APPLY 1 A SMALL AMOUNT INTO LEFT EYE THREE TIMES A DAY 01/11 completed Not Available Not Available Not Available oseltamivir 75 mg capsule 11/02 completed Not Available Not Available Not Available ferrous sulfate 325 mg (65 mg iron) tablet TAKE 1 TABLET BY MOUTH DAILY. TAKE 2 HOURS BEFORE OR 4 HOURS AFTER ACID REDUCERS. 11/19 completed Not Available Not Available Not Available Cipro 500 mg tablet Take 1 tablet every 12 hours by oral route for 3 days. 2014 active Not Available Not Available Not Avai lable ibuprofen 400 mg tablet 11/02 completed Not Available Not Available Not Available folic acid 1 mg tablet Take 3 tablets every day by oral route for 90 days. 01/11 completed Not Available Not Available Not Available dextroamphe tamine-amph etamine ER 10 mg 24hr capsule,ext end release 11/02 completed Not Available Not Available Not Available ibuprofen 600 mg tablet TAKE 1 TABLET 4 TIMES A DAY (EVERY 6 HOURS) NEEDED FOR MILD TO MODERATE PAIN,FEVE RHEADACH E 10/26 completed Not Available Not Available Not Available albuterol sulfate HFA 90 mcg/actuati on aerosol inhaler 11/02 completed Not Available Not Available Not Available ferrous sulfate 325 mg (65 mg iron) tablet,kathi yed release TAKE 1 TABLET BY MOUTH DAILY. TAKE 2 HOURS BEFORE OR 4 HOURS AFTER ACID REDUCERS. 09/17 completed Not Available Not Available Not Available ipratropium bromide 42 mcg (0.06 %) nasal spray 11/02 completed Not Available Not Available Not Available fluocinonid e 0.05 % topical cream 08/19 completed Not Available Not Available Not Available fluticasone propionate 50 mcg/actuati on nasal spray,suspe nsion 08/19 completed Not Available Not Available Not Available diazepam 5 mg tablet TAKE 1 TABLET BY MOUTH EVERY 6 HOURS NEEDED FOR ANXIETY OR MUSCLE SPASMS 01/11 completed Not Available Not Available Not Available amoxicillin 875 mg-potassiu m clavulanate 125 mg tablet 11/02 completed Not Available Not Available Not Available dextroamphe tamine-amph etamine ER 15 mg 24hr capsule,ext end release TAKE 1 CAPSULE (15 MG TOTAL) BY MOUTH IN THE MORNING. MAX DAILY AMOUNT: 15 MG. 04/01 completed Not Available Not Available Not Available dextroamphe tamine-amph etamine ER 25 mg 24hr capsule,ext end release Take 1 capsule every day by oral route. 09/16 completed Not Available Not Available Not Available nitrofurant oin monohydrate /macrocryst als 100 mg capsule TAKE 1 CAPSULE BY MOUTH EVERY 12 HOURS FOR 5 DAYS 01/11 completed Not Available Not Available Not Available 07/29 completed Not Available Not Available Not Available multivitami n 08/19 completed Not Available Not Available Not Available Vitamin 10/26 completed Not Available Not Available Not Available B12 active Not Available Not Availa ble Not Available Cough DM ER 30 mg/5 mL oral suspension, extended release TAKE 20 MG (3.3MLS) ORALLY 3 TIMES A DAY NEEDED FOR COUGH FOR 5 DAYS 12/11 completed Not Available Not Available Not Available L-Methylfol ate active Not Available Not Available Not Available Elsa (28) 3 mg-0.02 mg tablet TAKE 1 TABLET BY MOUTH EVERY DAY active Not Available Not Available No t Available Vitals Date Recorded Body height Body mass index (BMI) Systolic blood pressure Diastolic blood pressure Provider Name and Address Organization Details Last Updated DateTime 08/15/2023 165.1 cm 33.4 kg/m2 120 mm[Hg] 70 mm[Hg] Bobbi Melvin [facility] 08/15/2023 15:28:52 Date Recorded Body weight Provider Name an d Address Organization Details Last Updated DateTime 08/15/2023 53646.74333 g Not Available Karen Neal Record 08/15/2023 15:32:39 Date Recorded Body height Body mass index (BMI) Systolic blood pressure Diastolic blood pressure Provider Name and Address Organization Details Last Updated DateTime 08/23/2023 165.1 cm 33.3 kg/m2 120 mm[Hg] 80 mm[Hg] Soledad Robbins [facility] 08/23/2023 09:20:31 Date Recorded Body weight Provider Name an d Address Organization Details Last Updated DateTime 08/23/2023 31896.474 g Not Available [facility] Record 08/23/2023 09:23:07 Date Recorded Body height Body mass index (BMI) Systolic blood pressure Diastolic blood pressure Provider Name and Address Organization Details Last Updated DateTime 08/28/2023 165.1 cm 33.6 kg/m2 120 mm[Hg] 70 mm[Hg] Bobbi Banksmikhail [facility] 08/28/2023 16:09:10 Date Recorded Body weight Provider Name an d Address Organization Details Last Updated DateTime 08/28/2023 95681.85338 g Not Available [facility] Record 08/28/2023 16:12:44 Date Recorded Body height Body mass index (BMI) Systolic blood pressure Diastolic blood pressure Provider Name and Address Organization Details Last Updated DateTime 09/04/2023 165.1 cm 33.8 kg/m2 116 mm[Hg] 86 mm[Hg] Sudha Gupta [facility] 09/04/2023 16:34:34 Date Recorded Body weight Provider Name an d Address Organization Details Last Updated DateTime 09/04/2023 59047.55546 g Not Available [facility] Record 09/04/2023 16:37:10 Date Recorded Body height Body mass index (BMI) Systolic blood pressure Diastolic blood pressure Provider Name and Address Organization Details Last Updated DateTime 10/27/2023 165.1 cm 30.3 kg/m2 116 mm[Hg] 70 mm[Hg] Lani Ildefonso [facility] 10/27/2023 13:06:36 Date Recorded Body weight Provider Name an d Address Organization Details Last Updated DateTime 10/27/2023 22161.95128 g INDIANA TOVAR MD [address] [place] [address], [address] Floor, [place], [address], [facility] 10/27/2023 13:14:19 Social History Question Answer Notes LastModified by Organizat ion Details LastModified Time Tobacco Smoking Status Never Smoker Ekta Padilla moni, [facility] 04/30/2023 15:12:43 What Is Your Level Of Alcohol Consumption? Occasional [email or web address] Information not available 04/30/2023 Is Blood Transfusion Acceptable In An Emergency? Yes [email or web address] Information not available 04/30/2023 Concerns About Meeting Basic Needs (food, Housing, Heat, Etc)? No [email or web address] Information not available 04/30/2023 Education 2 Year College [email or web address] Informatio n not available 04/30/2023 What Is The Highest Grade Or Level Of School You Have Completed Or The Highest Degree You Have Received? [id number] [email or web address] Information not available 04/30/2023 What Is Your Occupation? [employer] [email or web address] Information not available 04/30/2023 Do You Have Any Children? No Information not available 08/19/2016 Does Your Partner Physically Hurt You Or Threaten To Hurt You? No Information not available 08/19/2016 Has Your Partner Forced You To Have Sex Or Perform Sex Acts When You Did Not Want To? No Information not available 08/19/2016 Does Your Partner Insult, Scream At Or Talk Down To You? No Information not available 08/19/2016 Does Your Partner Control You Or Any Part Of Your Life? No Information not available 08/19/2016 Are You Afraid Of Your Partner? No Information not available 08/19/2016 Drug Use? No Information n ot available 03/01/2015 Do You Feel Safe At Home? Yes Information not available 03/01/2015 What Was The Date Of Your Most Recent Tobacco Screening? 09/16/2017 [email or web address] Information not available 04/30/2023 How Many Children Do You Have? 0 [email or web address] Information not available 04/30/2023 Do You Use Protection During Sex? No [email or web address] Information not available 04/30/2023 Are You Sexually Active? Yes [email or web address] Information not available 04/30/2023 How Much Tobacco Do You Smoke? No [email or web address] Information not available 04/30/2023 General Stress Level Medium Information not available 04/30/2023 Do You Feel Stressed (tense, Restless, Nervous, Or Anxious, Or Unable To Sleep At Night)? [id number] [email or web address] Information not available 04/30/2023 Have You Recently Traveled Abroad? No [email or web address] Information not available 01/07/2020 Have You Recently (within The Last 12 Weeks, Or During A Current ) Traveled To Or Lived In A Zika-affected Area? No [email or web address] Information not available 04/30/2023 Sex: Female Functional Status Question Answer Note LastModified by Organization D etails LastModified Time What is your exercise level? Moderate [email or web address] Information not available 04/30/2023 Mental Status None recorded. Family History Relationship Description Onset Age of this Age Resolved Age Notes LastModified by Organization Details LastModified Time Paternal Grandmother Malignant tumor of breast [email or web address] Not available 02/08 08:52:31 Father Malignant tumor of lung [email or web address] Not available 2016 15:45:55 [email or web address] Not available 2021 14:56:18 Mother Well adult [email or web address] Not availa ble 02/06/2023 10:49:54 Notes:No fhx colon, uterine, or ovarian cancer Medical History Condition Response HIV N Spina Bifida N Heart Problems N Other N Sexual Dysfunction N *No Diseases or Conditions Y Breast Cancer N Blood clots N Autoimmune disorder N Thyroid Problems N Kidney or Bladder Problems N Benign breast disease N Colon cancer N GI Problems N Lung Disease N Depression N Defects or Inherited Disease N Eating Disorder N Anemia N Multiple Sclerosis N Anesthesia Complications N Headaches/Migraines N Psychiatric Illness N Anxiety Disorder N Ovarian Cancer N Diabetes N Blood Transfusions N HSV N Arthritis N Bladder disease N Infertility N Interstitial Cystitis N Abnormal Uterine Bleeding N Acid Reflux (GERD) N Hyperlipidemia N Cancer N BrCa positive N Stroke N Diverticulitis N Abuse/Domestic Violence N Asthma N Endometriosis N Hepatitis N Fibromyalgia N Hypertension N Osteoporosis N Thrombophilias N Gynecological History Statement/Question Response Flow Moderate Date of LMP 12/04/2022 STIs/STDs Yes Have you ever used control pills? Y Cervical Cancer N BrCa gene tested? N Ovarian Cancer N Breast Cancer N Last HPV Result Negative BrCa Positive N Abnormal Pap Yes Infertility N HPV Vaccine Y Colposcopy 04/02/2022 Duration of Flow (days) 5 Endometriosis N Age at Menarche 10 Current Control Method None Fibroids N Uterine Cancer N Frequency of Cycle (Q days) 28 Sexually Active? Y Sexual Problems? N Date of Last Pap Smear 02/06/2023 Obstetrics History GPAL:G 3 P 1 0 1 1 Type Value Full Term 1 Spontaneous 1 Living 1 Total 3 Immunizations Vaccine Type Date Status Note Provider Nam e and Address Organization Details Recorded Time Influenza, MDCK, quadrivalent, PF 02/06/2023 completed INDIANA TOVAR MD [address] [facility], [address] [facility], [place], [address], [place] - [facility] 02/06/2023 12:29:00 Tdap 06/19/2023 completed INDIANA TOVAR MD [address] [facility], [address] [place] [address], [place], [address], [facility] 06/19/2023 15:49:20 Past Encounters Encounter ID Performer Location Encounter Start Date Encounter Closed Date Diagnosis/Indication Diagnosis SNOMED-CT Code Diagnosis ICD10 Code Diagnosis Note [id number] ALEX Garza MD GAO[address] [facility] [address] [place] [address] 03/01/2015 08:14:41 03/01/2015 11:22:34 Gynecologic examination 92632195 Z01.419 Venereal d isease screening 092276133 Z11.3 [id number] GINA KAUR MD GAO4 [address] [place] [address] 07/14/2015 15:47:29 07/14/2015 16:28:27 Vaginitis and vulvovaginitis 019364208 N76.0 [id number] INDIANA TOVAR MD GAO4 [address] [place] [address] 08/19/2016 15:21:23 08/19/2016 16:11:03 Gynecologic examination 98470138 Z01.419 Pain of breast 06258573 N64.4 [id number] INDIANA TOVAR MD GAO4 [address] [place] [address] 09/16/2017 16:19:00 09/16/2017 16:54:37 Gynecologic examination 23296258 Z01.419 Contraception care 70002 5005 Z30.40 Venereal d isease screening 898580349 Z11.3 [id number] INDIANA TOVAR MD GAO4 [address] [place] [address] 11/02/2018 16:17:17 11/02/2018 17:08:01 Gynecologic examination 15290710 Z01.419 Uses oral contraception 8411932 Z30.41 Venereal d isease screening 507304289 Z11.3 [id number] INDIANA TOVAR MD GAO4 [address] [place] [address] 12/15/2018 13:15:31 12/15/2018 14:27:23 Atypical squamous cells of undetermined significance on cervical Papanicolaou smear 588805025 R87.610 HPV - Franny n papillomavirus test positive 154222647 R87.820 Urine preg jemal test negative 775529981 Z32.02 [id number] INDIANA TOVAR MD GAO3 [address] [place] [address] 01/07/2020 15:01:01 01/07/2020 16:05:02 Gynecologic examination 46355693 Z01.419 Uses oral contraception 8091525 Z30.41 Atypical s quamous cells of undetermined significance on cervical Papanicolaou smear 846988831 R87.495 [id number] INDIANA TOVAR MD GAO5 [address] [place] [address] 02/19/2020 08:39:11 02/19/2020 09:27:53 HPV - Human papillomavirus test positive 499037225 R87.820 Human boni llomavirus deoxyribonucleic acid detected, high risk on cervical specimen 020250022 R87.810 Urine preg jemal test negative 741825316 Z32.02 [id number] MAXWELL DUMONT MD GAO[address],[facility] [address] [place] [address] 01/08/2021 14:50:26 01/08/2021 15:33:03 Gynecologic examination 42457162 Z01.419 [id number] INDIANA TOVAR MD GAO3 [address] [place] [address] 01/11/2022 14:41:05 01/11/2022 15:38:37 Gynecologic examination 58235447 Z01.419 Human boni llomavirus deoxyribonucleic acid detected, high risk on cervical specimen 600720750 R87.810 [id number] INDIANA TOVAR MD GAO3 [address] [place] [address] 04/02/2022 15:09:57 04/02/2022 15:44:34 Atypical squamous cells of undetermined significance on cervical Papanicolaou smear 639909338 R87.610 Human boni llomavirus deoxyribonucleic acid detected, high risk on cervical specimen 086766598 R87.810 Urine preg jemal test positive 420672490 Z32.01 [id number] ROB GRANADOS MD GAO3 [address] [place] [address] 06/27/2022 10:20:52 06/27/2022 13:15:30 Normal 61791460 Z34.81 [id number] MAXWELL DUMONT MD GAO4 [address] [place] [address] 07/12/2022 11:04:39 07/12/2022 15:44:21 Uterine size for dates discrepancy 134125146 O26.849 screening 2437 62478 Z36.0 Routine an tenatal care 379849981 Z34.01 Maternal d rug exposure 84248501 O99.321 Gestation period, 10 weeks 67594546 Z3A.10 Pre-surger y evaluation 731089348 Z01.818 [id number] INDIANA TOVAR MD GAO3 [address] [place] [address] 08/01/2022 14:21:25 08/01/2022 15:21:57 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 [id number] INDIANA TOVAR MD GAO3 [address] [place] [address] 09/20/2022 10:20:18 09/20/2022 11:33:59 Atypical squamous cells of undetermined significance on cervical Papanicolaou smear 160945886 R87.610 Human boni llomavirus deoxyribonucleic acid detected, high risk on cervical specimen 415242001 R87.810 Partial hy datidiform mole 399933751 O01.1 [id number] INDIANA TOVAR MD GAO[address] [address] 11/21/2022 08:30:49 11/21/2022 10:23:58 Gynecologic examination 42839453 Z01.419 Recurrent miscarriage 10 5755296 N96 [id number] INDIANA TOVAR MD GAO3 [address] [place] [address] 12/06/2022 13:21:28 12/06/2022 14:18:36 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 [id number] INDIANA TOVAR MD GAO[address] [address] 12/12/2022 14:07:20 12/12/2022 15:33:30 Recurrent miscarriage 779899628 N96 Uterus arcuatus 60015935 Q51.810 [id number] MD TAVO BRAUN1 [address] [address] 01/23/2023 15:01:56 01/23/2023 15:43:12 Uterine size for dates discrepancy 914492639 O26.849 Past pregn [place] history of molar 6753425322 4132298 Z87.59 [id number] INDIANA TOVAR MD GAO[address] [address] 02/06/2023 10:49:42 02/06/2023 13:01:13 Routine care 227717048 Z34.81 Atypical s quamous cells of undetermined significance on cervical Papanicolaou smear 152536344 R87.610 Human boni llomavirus deoxyribonucleic acid detected, high risk on cervical specimen 717559934 R87.810 screening 2437 10869 Z36.89 Administra tion of influenza vaccine 07455595 Z23 Uterine si ze for dates discrepancy 205976241 O26.849 Advanced m aternal age 866301411 O09.521 Uterus arcuatus 02491136 Q51.810 Gestation period, 9 weeks 907581 Z3A.09 [id number] MD TAVO BRAUN3 [address] [place] [address] 02/28/2023 13:18:35 02/28/2023 14:19:36 Advanced maternal age 573188075 O09.521 Antibody measurement 352 7003 Z01.84 Uterus arcuatus 89293704 Q51.810 Gestation period, 12 weeks 42668277 Z3A.12 screening 2437 07392 Z36.9 Routine an tenatal care 275792664 Z34.81 [id number] ROB GRANADOS MD GAO3 [address] [place] [address] 04/02/2023 14:48:38 04/02/2023 15:20:50 High risk 92028037 O09.92 Advanced m aternal age 132585370 O09.522 Uterus arcuatus 37782191 Q51.810 Antibody measurement 352 7003 Z01.84 Gestation period, 17 weeks 38325533 Z3A.17 [id number] INDIANA TOVAR MD GAO3 [address] [place] [address] 04/30/2023 15:12:33 04/30/2023 16:03:59 Advanced maternal age 783902347 O09.522 Inguinal hernia 61184924 0 K40.90 Uterus arcuatus 44528322 Q51.810 Gestation period, 21 weeks 74595428 Z3A.21 Herpes sim plex type 1 infection 525692140 B00.9 Routine an tenatal care 371247728 Z34.02 Antibody measurement 352 7003 Z01.84 Placenta previa 48830409 O44.02 [id number] INDIANA TOVAR MD GAO3 [address] [place] [address] 05/29/2023 13:40:42 05/29/2023 14:20:33 Uterus arcuatus 63827636 Q51.810 Advanced m aternal age 712147500 O09.522 Placenta previa 49283555 O44.02 Routine an tenatal care 589832364 Z34.02 Gestation period, 25 weeks 03177752 Z3A.25 Antibody measurement 352 7003 Z01.84 [id number] INDIANA TOVAR MD GAO3 [address] [place] [address] 06/19/2023 15:28:17 06/19/2023 16:06:04 Advanced maternal age 427021885 O09.523 Antibody measurement 352 7003 Z01.84 Exposure t o herpes simplex virus 4302623086 06889 Z20.828 Routine an tenatal care 544726501 Z34.03 Gestation period, 28 weeks 51509824 Z3A.28 Administra tion of diphtheria, pertussis, and tetanus vaccine 595902620 Z23 [id number] INDIANA TOVAR MD GAO3 [address] [place] [address] 07/04/2023 07:55:36 07/04/2023 08:28:46 Antibody measurement 4165253 Z01.84 Advanced m aternal age 366846305 O09.523 Uterus arcuatus 16199036 Q51.810 Gestation period, 30 weeks 71207651 Z3A.30 [id number] INDIANA TOVAR MD GAO3 [address] [place] [address] 07/19/2023 08:20:22 07/19/2023 08:58:13 High risk 76252849 O09.93 Uterus arcuatus 50118634 Q51.810 Advanced m aternal age 168232856 O09.523 Antibody measurement 352 7003 Z01.84 Gestation period, 32 weeks 2560389 Z3A.32 [id number] INDIANA TOVAR MD GAO3 [address] [place] [address] 07/30/2023 15:18:12 07/30/2023 15:37:19 Advanced maternal age 087311084 O09.523 Antibody measurement 352 7003 Z01.84 Inguinal hernia 64245431 0 K40.90 Uterus arcuatus 11887863 Q51.810 Gestation period, 34 weeks 29001494 Z3A.34 [id number] JARRETT QUINN MD GAO1 [address] [address] 08/15/2023 15:25:02 08/18/2023 11:24:51 screening 318278931 Z36.85 High risk 4720 0007 O09.93 Advanced m aternal age 061541740 O09.523 Gestation period, 36 weeks 03765192 Z3A.36 [id number] MAXWELL DUMONT MD GAO4 [address] [place] [address] 08/23/2023 09:10:33 08/23/2023 09:45:34 High risk 48284115 O09.93 Uterus arcuatus 01963641 Q51.810 Molar 82687245 O02.0 Inguinal hernia 35045583 0 K40.90 Advanced m aternal age 548965672 O09.523 Antibody measurement 352 7003 Z01.84 Herpes sim plex type 1 infection 300686924 B00.9 Exposure t o herpes simplex virus 2705021393 91652 Z20.828 Gestation period, 37 weeks 30568507 Z3A.37 [id number] JARRETT QUINN MD GAO[address] [address] 08/28/2023 16:06:59 08/28/2023 16:28:10 High risk 63545147 O09.93 Molar 95494339 O02.0 Advanced m aternal age 497026369 O09.523 Gestation period, 38 weeks 86264867 Z3A.38 [id number] MIROSLAVA PATTERSON MD GAO1 [address] [address] 09/04/2023 16:18:04 09/07/2023 09:27:22 High risk 15165080 O09.93 Advanced m aternal age 333960198 O09.523 Exposure t o herpes simplex virus 0926568109 87023 Z20.828 Routine an tenatal care 493552921 Z34.03 Gestation period, 39 weeks 31481129 Z3A.39 Molar 16127060 O02.0 [id number] INDIANA TOVAR MD GAO3 [address] [place] [address] 10/27/2023 12:58:17 10/27/2023 15:05:52 care 696801883 Z39.2 Partial hy datidiform mole 910283927 O01.1 Health Concerns Section Related Observation LastModified by Organization Detai ls LastModified Time None Recorded Concern Status LastModified by Organization Details LastModified Time None Recorded Advance Directives Directive None Recorded Payers Encounter Date Sequence Insurance Name Policy Number Policy Webber Covered Member ID Webber Member ID Guarantor Name 08/15/2023 1 [place] [id number] Yenifer L Low [id number] Yenifer L Low 08/23/2023 1 [place] [id number] Yenifer L Low [id number] Yenifer L Low 08/28/2023 1 [place] [id number] Yenifer L Low [id number] Yenifer L Low 09/04/2023 1 [place] [id number] Yenifer L Low [id number] 27 Yenifer L Low 10/27/2023 1 [place] [id number] Yenifer L Low [id number] 27 Yenifer L Low Notes Date Note Type Note Provider Name and Address Organization Details Recorded Time 10/27/2023 text/html [facility] VisitReported bypatient.Associate d Symptoms:no abnormal bleeding; no pelvic pain; laceration well healed; no constipation; no fecal incontinence; no dysuria; no urinary incontinence; no fever; no problems; no mastitis INDIANA TOVAR MD [address] [place] [address], [place], [address], [place] [facility] 10/27/2023 13:22:32 OBGyn Episode Ob Episode Information Episode Created Date Number of Fetuses Patient Bloodtype Patient rh Status Prepregnancy Weight lbs Domestic Partner Domestic Partner Phone Father Name Service Liaison Representative Status 06/04/19 23 1 B Positive Rustam CLOSED Fetus Data First Name Last Name Admitted to NICU Weight (g) Sex Living Outcome Pediatric Complications Fetus ID Race Codes Race Delivery Type [id number] Problems Problem Notes Problem Name Start Date End Date Resolution Snomed Code Not e Exposure to herpes simplex virus [id number] partner wit h genital HSV history, he is on valtrex suppression daily. Patient with no prior outbreaks. Abnormal cervical Papanicolaou smear 512256037 ASCUS HPV +, normal colpo, repeat pap Maternal drug exposure 78264166 everything bage l seasoning at IPG, repeat next visit Hebert Calculation Initial Hebert Date Initial Exam Date Initial Exam Provider Initial Ultrasound Date Last Menstrual Period Date Ultra Sound Weeks Gestation 02/04/2023 06/03/2022 04/30/2022 0 Eighteen To Twenty Week Hebert Update Ultra Sound Date Fundal Height At Umbil Quickening Date Ultra Sound Latest Weeks Gestation Final Hebert Confirmed By Final Hebert Confirmed Date Final Hebert Date Ultra Sound Latest Days Gestation 0 02/05/20 23 0 Pre-farhana Flowsheet Flowsheet Date 06/27/2022 Marrufo Score Blood Edema Fundus Height Fundus Units Glucose Ketones Leukocytes Nitrite Labor Signs Protein Cervic Dilation Cervic Effacement Cervic Station Type Weight in lbs Pre/Post Dialysis Refused Weight 150.939313956397 BP Diastolic BP Location Tested BP Systolic BP Type 64 112 Fetus Heart Rate Present A Present Fetus Movement Comments 31yo here for IPG. F eels well other than constipation, OK for miralax/stool softener/fiber. Nervous due to prior SAB. On US, SLIUP, +FHR, CRL 7w3d by myself, US tech out sick. Will repeat US for dating in 1-2wk to ensure correlates with certain LMP. Partner with genital HSV history, he is on valtrex suppression daily. Patient with no prior outbreaks. Discussed possible need for C/S if outbreak at delivery. Ordered IPG labs and accepts carrier screening. Oriented to practice and delivery at . Materials given. Reviewed diet, exercise, weight gain, and meds in . Accepts cffDNA, will do combo kit at 10wk. Utox +opioids due to everything bagel, repeat next visit. RTO 1-2 weeks for dating. Vaccinated for COVID, recommended booster- declines. Flowsheet Date 07/12/2022 Marrufo Score Blood Edema Fundus Height Fundus Units Glucose Ketones Leukocytes Nitrite Labor Signs Protein Cervic Dilation Cervic Effacement Cervic Station none none trace Type Weight in lbs Pre/Post Dialysis Refused With clothes 151.607583644622 BP Diastolic BP Location Tested BP Systolic BP Type 70 120 sitting Fetus Heart Rate Present A Absent Fetus Movement Comments Ultrasound for follow-up roberto ing. 10-3/7 weeks by dates and 9-1/7 weeks by average ultrasound age. Cervical length 4.12 cm. No heart rate activity seen. Findings consistent with a missed AB. There is a thickened hyperechoic tissue collection with small cystic areas suspicious for partial molar versus large clot noted.D/W pt and on phone findings of u/s. Suspicious for molar preg- - recommend D&S for tissue pathology and chromosomes. Risks/benefits d/w pt and . Agree. Consented. H&P done. Lab slips given. Menstrual History Last Menstrual Date Menses Monthly On Bcp Conception Prior Menses Frequency Hcg Plus Date Menarche Onset Age 0204/30/2022 Delivery Information Delivery Date Delivery Type Labor Anesthesia Weeks Gestation Incision Type Labor Labor Length Hrs Delivered By Post Complications Tubal Sterilization Discharge Date Comments Discharge Information Feeding Method Contraceptive Method Maternal HG B and HCT Levels Ob Episode Information Episode Created Date Number of Fetuses Patient Bloodtype Patient rh Status Prepregnancy Weight lbs Domestic Partner Domestic Partner Phone Father Name Service Liaison Representative Status 03/26/19 23 1 CLOSED Fetus Data First Name Last Name Admitted to NICU Weight (g) Sex Living Outcome Pediatric Complications Fetus ID Race Codes Race Delivery Type [id number] Hebert Calculation Initial Hebert Date Initial Exam Date Initial Exam Provider Initial Ultrasound Date Last Menstrual Period Date Ultra Sound Weeks Gestation 12/02/2022 04/28/2022 02/25/2022 0 Eighteen To Twenty Week Hebert Update Ultra Sound Date Fundal Height At Umbil Quickening Date Ultra Sound Latest Weeks Gestation Final Hebert Confirmed By Final Hebert Confirmed Date Final Hebert Date Ultra Sound Latest Days Gestation 0 12/03/19 23 0 Pre-farhana Flowsheet Flowsheet Date 04/02/2022 Marrufo Score Blood Edema Fundus Height Fundus Units Glucose Ketones Leukocytes Nitrite Labor Signs Protein Cervic Dilation Cervic Effacement Cervic Station Type Weight in lbs Pre/Post Dialysis Refused Weight 142.721768834591 BP Diastolic BP Location Tested BP Systolic BP Type 60 102 Fetus Heart Rate Present Fetus Movement Comments Menstrual History Last Menstrual Date Menses Monthly On Bcp Conception Prior Menses Frequency Hcg Plus Date Menarche Onset Age 1202/25/2022 Delivery Information Delivery Date Delivery Type Labor Anesthesia Weeks Gestation Incision Type Labor Labor Length Hrs Delivered By Post Complications Tubal Sterilization Discharge Date Comments Discharge Information Feeding Method Contraceptive Method Maternal HG B and HCT Levels Ob Episode Information Episode Created Date Number of Fetuses Patient Bloodtype Patient rh Status Prepregnancy Weight lbs Domestic Partner Domestic Partner Phone Father Name Service Liaison Representative Status 01/24/20 23 1 B Positive 154 Sadiq CLOSED Fetus Data First Name Last Name Admitted to NICU Weight (g) Sex Living Outcome Pediatric Complications Fetus ID Race Codes Race Delivery Type false 3827.18 25 M true Full Term [id number] 6 Vaginal Delivery Vacuum Problems Problem Notes Problem Name Start Date End Date Resolution Snomed Code Not e Uterus arcuatus 99147100 High risk 40758918 Molar 18580000 Hx o f molar : send placenta to pathology Advanced maternal age 244076291 Level II u/s Placenta previa 82958244 Leve l II u/s: s=d EFW 57% 4 lbs 6 oz low lying placenta resolved Exposure to herpes simplex virus [id number] his tory of genital herpes: labs ordered for patient: discussed valtrex at 36 wks for prevention of infection Inguinal hernia 662281547 bila teral repair: age 3 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: equivocal-repeatin g in one month: Labs 03/26/23 neg Antibody measurement 4041153 Antibody ID Anti-c: new blood sample went to [facility]: Titer 2: will repeat titers Hebert Calculation Initial Hebert Date Initial Exam Date Initial Exam Provider Initial Ultrasound Date Last Menstrual Period Date Ultra Sound Weeks Gestation 09/10/2023 01/23/2023 12/04/2022 0 Eighteen To Twenty Week Hebert Update Ultra Sound Date Fundal Height At Umbil Quickening Date Ultra Sound Latest Weeks Gestation Final Hebert Confirmed By Final Hebert Confirmed Date Final Hebert Date Ultra Sound Latest Days Gestation 0 API-217 02/06/2023 09/10/19 24 0 Pre-farhana Flowsheet Flowsheet Date 01/23/2023 Marrufo Score Blood Edema Fundus Height Fundus Units Glucose Ketones Leukocytes Nitrite Labor Signs Protein Cervic Dilation Cervic Effacement Cervic Station Type Weight in lbs Pre/Post Dialysis Refused Weight 156.838307053343 BP Diastolic BP Location Tested BP Systolic BP Type 76 110 Fetus Heart Rate Present Fetus Movement Comments Follow up appt to access via [email or web address]: history of molar : u/s: SLIUP FHR 140 normal GS, YS, and FP. Will schedule for IPG. Flowsheet Date 02/06/2023 Marrufo Score Blood Edema Fundus Height Fundus Units Glucose Ketones Leukocytes Nitrite Labor Signs Protein Cervic Dilation Cervic Effacement Cervic Station Type Weight in lbs Pre/Post Dialysis Refused Weight 154.257732639966 BP Diastolic BP Location Tested BP Systolic BP Type 76 110 Fetus Heart Rate Present Fetus Movement Comments IPG: reviewed entire IPG pac ket including: diet in including weight gain recommendations, genetic screening, cfDNA, MSAFP, labor classes, medications safe to use in , and exercise recommendations. Pt desires cfDNA, MSAFP, and genetic testing. G2: partial mole: will send placenta after delivery. AMA: Level II u/s. Partner history of genital herpes: will recheck serology: discussed valtrex for prophylaxis. Flowsheet Date 02/28/2023 Marrufo Score Blood Edema Fundus Height Fundus Units Glucose Ketones Leukocytes Nitrite Labor Signs Protein Cervic Dilation Cervic Effacement Cervic Station none neg Type Weight in lbs Pre/Post Dialysis Refused Weight 154.021160642378 BP Diastolic BP Location Tested BP Systolic BP Type 62 108 Fetus Heart Rate Present Fetus Movement Comments Patient doing well. Occ mild headaches. u/s: FHR 156 s=d no SCB no free fluid. cfDNA: normal. MSAFP: ordered and will repeat titers at [facility]. Flowsheet Date 04/02/2023 Marrufo Score Blood Edema Fundus Height Fundus Units Glucose Ketones Leukocytes Nitrite Labor Signs Protein Cervic Dilation Cervic Effacement Cervic Station none none trace Type Weight in lbs Pre/Post Dialysis Refused Weight 165.370157668936 BP Diastolic BP Location Tested BP Systolic BP Type 64 112 Fetus Heart Rate Present A Present Fetus Movement Comments +FM no lof/vb. +FHR. AFP nor mal. Has level II set for AMA, RTO 4wk. Flowsheet Date 04/30/2023 Marrufo Score Blood Edema Fundus Height Fundus Units Glucose Ketones Leukocytes Nitrite Labor Signs Protein Cervic Dilation Cervic Effacement Cervic Station 21 cm none neg Type Weight in lbs Pre/Post Dialysis Refused Weight 174.16232298333 BP Diastolic BP Location Tested BP Systolic BP Type 68 108 Fetus Heart Rate Present A 140 Fetus Movement Comments Patient doing well. No compl aints. Had Level II u/s: 04/16: diagnosed with placenta previa: will get reports: has f/u u/s June 17: reviewed pelvic rest. Having titer drawn. Flowsheet Date 05/29/2023 Marrufo Score Blood Edema Fundus Height Fundus Units Glucose Ketones Leukocytes Nitrite Labor Signs Protein Cervic Dilation Cervic Effacement Cervic Station 25 cm none neg Type Weight in lbs Pre/Post Dialysis Refused Weight 180.570510929444 BP Diastolic BP Location Tested BP Systolic BP Type 60 104 Fetus Heart Rate Present A 142 Fetus Movement Comments Patient recently went on vac ation and got a sunburn: reviewed increase risks of burning from the sun in : advised sunscreen with SPF 30 or higher. 28 wk labs ordered: will do titer with labs. Has f/u MFM appt to assess previa day prior to next appt. Flowsheet Date 06/19/2023 Marrufo Score Blood Edema Fundus Height Fundus Units Glucose Ketones Leukocytes Nitrite Labor Signs Protein Cervic Dilation Cervic Effacement Cervic Station 28 cm none neg Type Weight in lbs Pre/Post Dialysis Refused Weight 188.882500445305 BP Diastolic BP Location Tested BP Systolic BP Type 62 116 Fetus Heart Rate Present A 150 Fetus Movement A Yes Comments Patient doing well. Tdap giv en. Level II u/s: previa has resolved: now with low lying placenta: has repeat u/s in 4 wks. Anti-C AB: titer 1:2: will repeat in 4 wks: lab slip given. Flowsheet Date 07/04/2023 Marrufo Score Blood Edema Fundus Height Fundus Units Glucose Ketones Leukocytes Nitrite Labor Signs Protein Cervic Dilation Cervic Effacement Cervic Station 30 cm none trace Type Weight in lbs Pre/Post Dialysis Refused Weight 192.976914291829 BP Diastolic BP Location Tested BP Systolic BP Type 60 100 Fetus Heart Rate Present A 140 Fetus Movement A Yes Comments Patient doing well. No compl aints. Doing Anti-C titer in 2 wks. MFM scan on 07/15: to assess placenta. Flowsheet Date 07/19/2023 Marrufo Score Blood Edema Fundus Height Fundus Units Glucose Ketones Leukocytes Nitrite Labor Signs Protein Cervic Dilation Cervic Effacement Cervic Station neg 32 cm none none trace Type Weight in lbs Pre/Post Dialysis Refused Weight 195.622051464268 BP Diastolic BP Location Tested BP Systolic BP Type 60 100 Fetus Heart Rate Present A 145 Fetus Movement A Yes Comments Patient doing well. No compl aints. Reviewed s/s of labor. Level II u/s: low lying placenta resolved. Recent titer 1:2: will repeat in 4 wks. Flowsheet Date 07/30/2023 Marrufo Score Blood Edema Fundus Height Fundus Units Glucose Ketones Leukocytes Nitrite Labor Signs Protein Cervic Dilation Cervic Effacement Cervic Station 34 cm none trace Type Weight in lbs Pre/Post Dialysis Refused Weight 198.539621181733 BP Diastolic BP Location Tested BP Systolic BP Type 70 118 Fetus Heart Rate Present A 142 Fetus Movement A Yes Comments Patient getting tired. Incre ased swelling of legs: bilaterally and symmetrical. Headache yesterday: now resolved. Titers in 2 weeks. Flowsheet Date 08/15/2023 Marrufo Score Blood Edema Fundus Height Fundus Units Glucose Ketones Leukocytes Nitrite Labor Signs Protein Cervic Dilation Cervic Effacement Cervic Station 36 cm none trace 0cm 50% -2 Type Weight in lbs Pre/Post Dialysis Refused With clothes 201.102711818494 BP Diastolic BP Location Tested BP Systolic BP Type 70 R arm 120 sitting Fetus Heart Rate Present A 145 Fetus Movement A Yes Comments Getting uncomfortable. Baby active, no signs of PTL. GBS done. Just had antibody titers drawn. Some carpal tunnel symptoms. Partner with HSV, patient negative, offered suppression but declines as she has not been SA since her negative labs. F/u weekly. Flowsheet Date 08/23/2023 Marrufo Score Blood Edema Fundus Height Fundus Units Glucose Ketones Leukocytes Nitrite Labor Signs Protein Cervic Dilation Cervic Effacement Cervic Station neg 37 wks none negative none Negative trace 0cm 5 0% -2 Type Weight in lbs Pre/Post Dialysis Refused With clothes 200.574963489608 BP Diastolic BP Location Tested BP Systolic BP Type 80 120 sitting Fetus Heart Rate Present A 155 Present Fetus Movement A Yes Comments 37 3/7 - - doing well. GBS + . Wrote note to structural steel ironworker the rest of the . Flowsheet Date 08/28/2023 Marrufo Score Blood Edema Fundus Height Fundus Units Glucose Ketones Leukocytes Nitrite Labor Signs Protein Cervic Dilation Cervic Effacement Cervic Station 38 cm none trace 1cm 50% -2 Type Weight in lbs Pre/Post Dialysis Refused With clothes 202.372226945896 BP Diastolic BP Location Tested BP Systolic BP Type 70 R arm 120 sitting Fetus Heart Rate Present A 145 Fetus Movement A Yes Comments Active fetus, no signs of PT L. F/u weekly. Flowsheet Date 09/04/2023 Marrufo Score Blood Edema Fundus Height Fundus Units Glucose Ketones Leukocytes Nitrite Labor Signs Protein Cervic Dilation Cervic Effacement Cervic Station 38 cm none none none trace 1cm 50% -2 Type Weight in lbs Pre/Post Dialysis Refused Weight 203.19931541021 BP Diastolic BP Location Tested BP Systolic BP Type 86 116 Fetus Heart Rate Present A 145 Fetus Movement A Yes Comments 39.1 +FM, No VB or LOF. Revi ewed post dates procedure. Will do NST next week and then schedule IOL. Flowsheet Date 10/27/2023 Marrufo Score Blood Edema Fundus Height Fundus Units Glucose Ketones Leukocytes Nitrite Labor Signs Protein Cervic Dilation Cervic Effacement Cervic Station Type Weight in lbs Pre/Post Dialysis Refused Weight 182.239901538224 BP Diastolic BP Location Tested BP Systolic BP Type 70 116 Fetus Heart Rate Present Fetus Movement Comments Menstrual History Last Menstrual Date Menses Monthly On Bcp Conception Prior Menses Frequency Hcg Plus Date Menarche Onset Age 0912/04/2022 Delivery Information Delivery Date Delivery Type Labor Anesthesia Weeks Gestation Incision Type Labor Labor Length Hrs Delivered By Post Complications Tubal Sterilization Discharge Date Comments 4 Induce d Regional-Ep idural 40 prolonge d IOL with 4 rounds of pit, elected for vacuum after 3.5hrs of pushing with maternal exhaustio n. 2nd degree lac repaired. PPH with rapid pit, methergin e, TXA and KATHARINE, Ancef x1 given Discharge Information Feeding Method Contraceptive Method Maternal HG B and HCT Levels Bottle
--- OUTSIDE RECORDS SUMMARY | 2024-05-21 07:16 | XMS_ITS | Encounter Summary ---
Author Organization [facility] Address [address] [place] [address] Care Team Providers Care Teacher Of The Emotionally Disturbed Name Role Phone Saritha Rodrigez MD Primary Care Provider [phone] Sparkle Rincon MD Unavailable [phone] Encounter Details Date Type Department Care Team (Late st Contact Info) Description 07/12/2022 Prep for Surgery OBGYN IP [address] [place] [address] Griselda Ortiz MD [address] [place] [address] Social History Tobacco Use Types Packs/Day Years Used Date Smoking Tobacco: Never Smokeless Tobacco: Never Alcohol Use Standard Drinks/Week Comments Yes 0 (1 standard drink = 0.6 oz pur e alcohol) AUDIT-C Answer Date Recorded Q1: How often do you have a drink containing alc ohol? 2-4 times a month 07/15/2022 Q2: How many drinks containi ng alcohol do you have on a typical day when you are drinking? 1 or 2 07/15/2022 Q3: How often do you have si x or more drinks on one occasion? Never 07/15/2022 Sex and Gender Information Value Date Recorded Sex Assigned at Female 07/16/2022 12:46 PM EDT Gender Identity Female 07/16/2022 12:46 PM EDT Sexual Orientation Heterosexual (straight) 04/15 3:42 PM EST COVID-19 Exposure Response Date Recorded In the last 10 days, have yo u been in contact with someone who was confirmed or suspected to have Coronavirus/COVID-19? No / Unsure 07/15/2022 8:51 AM EDT documented as of this encounter H&P Notes * Griselda Ortiz MD - 07/12/2022 3:57 PM EDT Assessment: 31 y.o. at 11 0/7 wks here for D&S for MAB at 9 wks. Plan: D&S for MAB @ 9 1/7 wks. Reviewed risks of procedure including: infection, bleeding, transfusion, uterine perforation, injury to internal organs i.e. Bowel, bladder, vascular structures, prolonged catherization, colostomy, laparoscopy, laparotomy, blood transfusion and hysterectomy: consent signed. Possible molar preg on ultrasound - - please send tissue to path and for chromosomes for 2nd SAB. 1. Admit to JB4 2. IVFs 3. NPO 4. Type and screen and CBC: done as outpatient 5. Preop orders placed in Epic HPI: 31 y.o. here at 11 0/7 wks for MAB noted on TV Ultrasound on 07/12/2022 - - 9 1/7 wks byUAU, 10 3/7 wks by dates and no FHR. Hyperechoic tissue collection with cystic areas suspicious formolar preg. PMHx: none PSHx: 1. Inguinal hernia repair 1994 2. Lasik bilateral eyes 2020 PObHx: G1 - SAB PGynHx: Hx chlamydia 2013 - - neg 06/2022. SH: -/-/- All: Bactrim - rash Meds: pnv ROS: as above Phycial exam: Vitals: Ht: 5'5 Wt:151# B/P:120/70 P:80 Resp:18 Temp: afebrile Lungs: CTA bilaterally no wheezes, crackles,or rhonchi CV: RRR S1S2 no murmurs Abd: +BS soft NT NT no masses, rebound, or guarding Pelvic: Ultrasound: 10-3/7 weeks by dates and 9-1/7 weeks by average ultrasound age. Cervical length 4.12 cm. No heart rate activity seen. Findings consistent with a missed AB. There is a thickened hyperechoic tissue collection with small cystic areas suspicious for partial molar versus large clot noted. Ext: NT no cords documented in this encounter Plan of Treatment Not on file documented as of this encounter Visit Diagnoses Not on filedocumented in this encounter Care Teams Teacher Of The Emotionally Disturbed Relationship Specialty Start Date End Date Saritha Rodrigez MD PCP - General 05/18/11 Sparkle Rincon MD [address] [facility] [address] [place] [address] Obstetrics and Gynecology 04/16/23 documented as of this encounter
[2024-05-21 07:28] LABS: MANUAL DIFF FLAG NO
[2024-05-21 07:57] LABS: Basophils Percent Auto 0.9 % (0-2); Eosinophils Absolute Auto 0.2 X10*3/uL (0.0-0.4); Eosinophils Percent Auto 3.7 % (0-4); Hematocrit 39.7 % (37.0-47.0); Hemoglobin 13.1 g/dl (12.0-16.0); Imm Gran Abs Auto 0.01 X10*3/uL (0.00-0.03); Imm Gran Pct Auto 0.2 % (0.0-0.4); Lymphocytes Absolute Auto 1.9 X10*3/uL (1.2-4.9); Mean Corpuscular Hemoglobin 30.6 pg (27.0-33.0); Mean Corpuscular Volume 92.8 fL (80.0-98.0); Mean Platelet Volume 10.2 fL (9.4-12.3); Monocytes Absolute Auto 0.3 X10*3/uL (0.1-1.2); Monocytes Percent Auto 6.9 % (2-11); Neutrophils Absolute Auto 2.2 x10*3/uL (2.0-8.3); Neutrophils Percent Auto 47.3 % (45-73); Platelet Count 228 X10*3/uL (160-400); Red Blood Count 4.28 X10*6/uL (4.20-5.50); Red Cell Distribution Width 11.8 % (11.0-16.0); White Blood Count 4.6 X10*3/uL (4.8-10.8)
[2024-05-21 08:05] LABS: Estimated Average Glucose 100 mg/dL; Hemoglobin A1c % 5.1 % (<6.0)
[2024-05-21 08:32] LABS: Alanine Aminotransferase 20 U/L (0-31); Albumin Level 4.1 g/dL (3.5-5.0); Alkaline Phosphatase 47 U/L (39-117); Anion Gap 12 (12-20); Aspartate Amino Transferase 17 U/L (5-31); Bilirubin Total 0.5 mg/dL (0.0-1.0); Blood Urea Nitrogen 17 mg/dL (9-16); Calcium 9.1 mg/dL (8.4-10.2); Carbon Dioxide 24 mmol/L (22-29); Chloride 109 mmol/L (96-108); Cholesterol 205 mg/dL (<200); Estimated Glomerular Filt Rate > 60; Glucose Random 92 mg/dL (60-115); HDL Cholesterol 66 mg/dL (>40); Iron 107 mcg/dL (30-160); LDL Cholesterol Calculated 112 mg/dL (<100); Percent Iron Saturation 30 % (15-50); Potassium 3.9 mmol/L (3.3-5.1); Sodium 141 mmol/L (135-145); Total Iron Binding Capacity 354 mcg/dL (228-428); Total Protein 7.9 g/dL (6.5-8.0); Triglycerides 138 mg/dL (<150); Unsaturated Iron Binding 247 ug/dL
[2024-05-21 08:46] LABS: Free T4 (Free Thyroxine) 0.92 ng/dL (0.71-1.85); Thyroid Stimulating Hormone 0.88 uIU/mL (0.32-4.0)
[2024-05-21 08:47] LABS: Ferritin 41 ng/mL (10-122); Vitamin D 25-OH Total 42.7 ng/mL (>30)
[2024-05-21 08:53] LABS: Vitamin B12 458 pg/mL (200-900)
[2024-05-21 11:31] LABS: Reflex LDLD? No
[2024-05-22 07:03] LABS: Follicle Stimulating Hormone 7.2 mIU/mL; Lutenizing Hormone 5.5 mIU/mL
[2024-05-30 09:14] LABS: Estradiol Ultra Sensitive 7 pg/mL
== END 2024-05-21 07:15 | disposition home or self-care (01) ==
LOC: HO.LAB 07:14
PROVIDERS: Absent Provider Obstetrics & Gynecology
DX: Z00.00 Encounter for general adult medical examination without abnormal findings (principal); R63.5 Abnormal weight gain; Z13.1 Encounter for screening for diabetes mellitus
CPT/HCPCS: 36415; 80053; 80061; 82306; 82607; 82670; 82728; 83001; 83002; 83036; 83540; 84439; 84443; 85025

== ENCOUNTER 2024-07-08 11:05 | Outpatient (RCR) | payer OTHER, SELFPAY | END 2024-09-30 15:40 | disposition home or self-care (01) | LOC: HO.PT 11:05 | DX: M54.9 Dorsalgia, unspecified (principal) | CPT/HCPCS: 97110; 97140; 97161 ==

== ENCOUNTER 2024-12-28 13:47 | Outpatient (REF) | payer OTHER, SELFPAY ==
[2024-12-28 14:14] LABS: MANUAL DIFF FLAG NO
[2024-12-28 14:56] LABS: Hematocrit 41.6 % (37.0-47.0); Hemoglobin 13.8 g/dl (12.0-16.0); Imm Gran Abs Auto 0.02 X10*3/uL (0.00-0.03); Imm Gran Pct Auto 0.3 % (0.0-0.4); Lymphocytes Absolute Auto 3.0 X10*3/uL (1.2-4.9); Mean Corpuscular HGB Conc 33.2 g/dl (31.0-35.0); Mean Corpuscular Hemoglobin 29.9 pg (27.0-33.0); Mean Corpuscular Volume 90.2 fL (80.0-98.0); NRBC Abs Auto 0.000 X10*3/uL (0.0-0.012); NRBC Pct Auto 0.0 /100WBC (0.0-0.2); Platelet Count 246 X10*3/uL (160-400); Red Blood Count 4.61 X10*6/uL (4.20-5.50); White Blood Count 7.8 X10*3/uL (4.8-10.8)
[2024-12-28 15:02] LABS: INTERNATIONAL NORM RATIO 1.0 (0.9-1.1); Prothrombin Time 11.0 SEC (10.9-12.4)
[2024-12-28 15:05] LABS: Partial Thromboplastin Time 27.4 SEC (26.7-34.1)
--- OUTSIDE RECORDS SUMMARY | 2024-12-28 18:24 | XMS_ITS | Encounter Summary ---
[facility] Organization [facility] Address [address] [place] [address] Care Team Providers Care Contact Lens Curve Grinder Name Role Phone Saritha Rodrigez MD Primary Care Provider [phone] Jenna Snider MD Primary Care Provider [phone] Encounter Details Date Type Department Care Team (Late st Contact Info) Description 07/18/2017 Orders Only [facility] [address] [place] [address] Saritha Rodrigez MD [address] [place] [address] -[place] [address] Social History Tobacco Use Types Packs/Day Years [...] Care Team (Late st Contact Info) Description 06/03/2025 1:00 PM EDT Office Visit [facility] [address] [place] [address] Jenna Snider MD [address] [place] [address] documented as of this encounter Visit Diagnoses Not on filedocumented in this encounter Care Teams Contact Lens Curve Grinder Relationship Specialty Start Date End Date Saritha Rodrigez MD [address] [place] [address] -[place] [address] PCP - General 05/07/17 01/08/24 Jenna Snider MD [address] [place] [phone] PCP - General Internal Medicine 01/09/24 documented as of this encounter
--- OUTSIDE RECORDS SUMMARY | 2024-12-28 18:24 | XMS_ITS | Encounter Summary ---
Author Organization [facility] Address [address] [place] [address] Care Team Providers Care Vehicle Delivery Worker Name Role Phone Saritha Rodrigez MD Primary Care Provider + [phone] Sparkle Rincon MD Unavailable [phone] Encounter Details Date Type Department Care Team (Late st Contact Info) Description 04/10/2017 Scanned Document [address] [place] [phone] Provider, Generic Social History Tobacco Use Types Packs/Day Years Used Date Smoking Tobacco: Never Alcohol Use Standard Drinks/Week Comments Yes 0 (1 standard drink = 0.6 oz pur e alcohol) Comments Unknown Sex and Gender Information Value Date Recorded Sex Assigned at Female 07/16/2022 12:46 PM EDT Legal Sex Female 4:27 PM EDT Gender Identity Female 07/16/2022 12:46 PM EDT Sexual Orientation Heterosexual (straight) 04/15 3:42 PM EST documented as of this encounter Plan of Treatment Not on file documented as of this encounter Visit Diagnoses Not on filedocumented in this encounter Care Teams Vehicle Delivery Worker Relationship Specialty Start Date End Date Saritha Rodrigez MD PCP - General 05/18/11 Sparkle Rincon MD [address] [place] [address] Obstetrics and Gynecology 2/7/24 documented as of this encounter
--- OUTSIDE RECORDS SUMMARY | 2024-12-28 18:24 | XMS_ITS | Encounter Summary ---
Author Organization [facility] Address [address] [place] [address] Care Team Providers Care Data Entry Supervisor Name Role Phone Saritha Rodrigez MD Primary Care Provider Sparkle Rincon MD Unavailable [phone] Encounter Details Date Type Department Care Team (Late st Contact Info) Description 10/02/2017 Scanned Document [facility] [place] [address] [place] [id number] Patrice Hensley PA [address] [place] [address] Social History Tobacco Use Types Packs/Day Years [...] on filedocumented in this encounter Care Teams Data Entry Supervisor Relationship Specialty Start Date End Date Saritha Rodrigez MD PCP - General 05/18/11 Sparkle Rincon MD [address] [facility] [address] [place] [address] Obstetrics and Gynecology 04/16/23 documented as of this encounter
--- OUTSIDE RECORDS SUMMARY | 2024-12-28 18:24 | XMS_ITS | Encounter Summary ---
Author Organization [facility] Address [address] [place] [address] Care Team Providers Care Disk Sander Name Role Phone Saritha Rodrigez MD Primary Care Provider [phone] Sparkle Rincon MD Unavailable [phone] Encounter Details Date Type Department Care Team (Late st Contact Info) Description 07/12/2022 Prep for Surgery OBGYN IP [address] [place] [address] Griselda Ortiz MD [address] [place] [address] Social History Tobacco Use Types Packs/Day Years [...] more drinks on one occasion? Never 07/15/2022 Comments No Sex and Gender Information Value Date Recorded [...] AM EDT documented as of this encounter Functional Status * AUDIT-C Score Answer Date of Assessment Author 2 07/15/2022 8:50 AM EDT Tania Manuel RN * Question Answer Date of Assessment Author AUDIT-C Total Score - Female 2 07/15/2022 8:50 AM EDT Mylene Manuel RN Q1: How often do you have a drink containing alcohol? 2-4 times a month 07/15/2022 8:50 AM EDT Mylene Manuel RN Q2: How many drinks containing alcohol do you have on a typical day when you are drinking? 1 or 2 07/15/2022 8:50 AM EDT Mylene Manuel RN Q3: How often do you have six or more drinks on one occasion? Never 07/15/2022 8:50 AM EDT Mylene Manuel RN documented as of this encounter H&P Notes [...] on filedocumented in this encounter Care Teams Disk Sander Relationship Specialty Start Date End Date Saritha Rodrigez MD PCP - General 05/18/11 Sparkle Rincon MD [address] [place] [address] Obstetrics and Gynecology 04/16/23 documented as of this encounter
--- OUTSIDE RECORDS SUMMARY | 2024-12-28 18:24 | XMS_ITS | Encounter Summary ---
Author Organization [facility] Address [address] [place] [address] Care Team Providers Care Roofing Contractor Name Role Phone Saritha Rodrigez MD Primary Care Provider + [phone] Sparkle Rincon MD Unavailable [phone] Encounter Details Date Type Department Care Team (Late st Contact Info) Description 04/10/2017 Scanned Document [address] [place] [phone] Provider, Generic Social History Tobacco Use Types [...] on filedocumented in this encounter Care Teams Roofing Contractor Relationship Specialty Start Date End Date Saritha Rodrigez MD PCP - General 05/18/11 Sparkle Rincon MD [address] [place] [address] Obstetrics and Gynecology 2/7/24 documented as of this encounter
--- OUTSIDE RECORDS SUMMARY | 2024-12-28 18:24 | XMS_ITS | Encounter Summary ---
Author Organization [facility] Address [address] [place] [address] Care Team Providers Care Mental Retardation Nurse Name Role Phone Saritha Rodrigez MD Primary Care Provider [phone] Jenna Snider MD Primary Care Provider [phone] Reason for Referral * MRI/CAT/PET Scan (Routine) - Closed Specialty Diagnoses / Procedures Referred By Contac t Referred To Contact Radiology Diagnoses Paresthesias Altered mental status, unspecified altered mental status type Procedures MRI brain W WO contrast Saritha Rodrigez MD [address] [place], [place] [address] [address] Phone: tel: fax: Referral ID Status Reason Start Date Expiration Date Visits Re quested Visits Authorized [id number] Closed 11/09/2021 12/14/2022 1 1 Encounter Details Date Type Department Care Team (Late st Contact Info) Description 11/09/2021 Orders Only [facility] [address] [place] [address] Saritha Rodrigez MD [address] [place], [place] [address] [address] Paresthesias (Primary Dx); Altered mental status, unspecified [...] Description 06/03/2025 1:00 PM EDT Office Visit [facility] Department of Internal Medicine [address] [place] [address] Jenna Snider MD [address] [place] [phone] Scheduled Orders Name Type Priority Associated Diagnoses Orde r Schedule MRI brain W WO contrast Imaging Routine Paresthesias Altered mental status, unspecified altered mental status type Expected: 11/09/2021, Expires: 05/10/2023 documented as of this encounter Visit Diagnoses Diagnosis Paresthesias- Primary Disturbance of skin sensation Altered mental status, unspecified altered mental status type documented in this encounter Care Teams Mental Retardation Nurse Relationship Specialty Start Date End Date Saritha Rodrigez MD [address] [place] [address] -[place] [address] PCP - General 05/07/17 01/08/24 Jenna Snider MD [address] [place] [phone] PCP - General Internal Medicine 01/09/24 documented as of this encounter
--- OUTSIDE RECORDS SUMMARY | 2024-12-28 18:24 | XMS_ITS | Encounter Summary ---
Author Organization [facility] Address [address] [place] [address] Care Team Providers Care Stone Lathe Operator Name Role Phone Saritha Rodrigez MD Primary Care Provider [phone] Jenna Snider MD Primary Care Provider [phone] Encounter Details Date Type Department Care Team (Late st Contact Info) Description 11/28/2022 Orders Only [facility] Department of Internal Medicine [address] [place], [place] [id number] Saritha Rodrigez MD [address] [facility] -[place] [address] Leukopenia, unspecified type (Primary Dx) Social History [...] 1:00 PM EDT Office Visit [facility] Department of Internal Medicine [address] [place] [address] Jenna Snider MD [address] [place] [phone] Scheduled Orders Name Type Priority Associated Diagnoses Orde r Schedule CBC (H/H, RBC, INDICES, WBC, PLT) (Q) Lab Routine Leukopenia, unspecified type 1 Occurrences starting 11/28/2022 until 11/29/2023 documented as of this encounter Visit Diagnoses Diagnosis Leukopenia, unspecified type- Primary documented in this encounter Care Teams Stone Lathe Operator Relationship Specialty Start Date End Date Saritha Rodrigez MD [address] [place] [address] -[place] [address] PCP - General 05/07/17 01/08/24 Jenna Snider MD [address] [place] [phone] PCP - General Internal Medicine 01/09/24 documented as of this encounter
--- OUTSIDE RECORDS SUMMARY | 2024-12-28 18:24 | XMS_ITS | Clinical Summary ---
Author Organization [facility] Address [address] [place] [address] Care Team Providers Care General Machine Operator Name Role Phone Saritha Rodrigez MD Primary Care Provider [phone] Sparkle Rincon MD Unavailable [phone] Allergies Active Allergy Reactions Criticality Noted Date Comments Sulfamethoxazole-Trimethoprim Itching Low 2017 Cephalexin Itching Low 04/10/2017 Medications acetaminophen (TYLENOL) 500 MG tabletIndicatio ns:Missed Take 2 tablets (1,000 mg total) by mouth 4 times daily (every 6 hours) as needed for mild pain or moderate pain. 30 tablet 3 Active ferrous sulfate 325 (65 FE) MG EC tabletIndicatio ns:Acute blood loss anemia Take 1 tablet (325 mg total) by mouth daily. Take 2 hours before or 4 hours after acid reducers. 30 tablet 1 3 Active vitamin with iron and folic acid ( PLUS) 27-1 MG Tab Take 1 tablet by mouth daily. Active L-Methylfolate- B6-B12 3-35-2 MG Tab Take 1 tablet by mouth 2 (two) times a day. Active ibuprofen (MOTRIN) 600 MG tabletIndicatio ns:Term delivered Take 1 tablet (600 mg total) by mouth 4 times daily (every 6 hours) as needed for mild pain, moderate pain, fever or headaches. 60 tablet 4 Active benzocaine 20% - menthol 0.5% (DERMOPLAST) 20-0.5 % Aerosol topical sprayIndication s:Term delivered Apply 1 Application topically 4 times daily (every 6 hours) as needed for mild pain or irritation. 4 Active dibucaine (NUPERCAINAL) 1 % ointmentIndicat ions:Term delivered Apply topically 4 times daily (every 6 hours) as needed (hemorrhoidal irritation). 4 Active lanolin (MWZ-M-LHPJYD) creamIndication s:Term delivered Apply topically as needed (nipple care). 4 Active witch mercedes-glycerin (TUCKS) padIndications: Term delivered Apply topically as needed for irritation. 4 Active Active Problems Problem Noted Date Diagnosed Date and not yet delivered in third trimeste r 09/08/2023 Missed 07/16/2022 Attention deficit disorder 05/12/2013 Resolved Problems Problem Noted Date Diagnosed Date Resolved Date Otitis media 12/11/2014 02/03/2024 Encounters Date Type Department Care Team Description 11/16/2024 Orders Only [facility] [address] [phone] Sparkle Rincon MD from Last 3 Months Immunizations Immunization Administration Dates Next Due DTP / HiB [...] = 0.6 oz pur e alcohol) Soc [facility] Utilities Answer Date Recorded In the past 12 months has th e electric, gas, oil, or water company threatened to shut off services in your [...] place to sleep or slept in a snf (including now)? No 09/08/2023 Comments No Sex and Gender Information Value Date Recorded Sex Assigned at Female 07/16/2022 12:46 PM EDT Legal Sex Female 4:27 PM EDT Gender Identity Female 07/16/2022 12:46 PM EDT Sexual Orientation Heterosexual (straight) 04/15 3:42 PM EST Last Filed Vital Signs Vital Sign Reading Time Taken Comments Blood Pressure 95/61 09/12/2023 8:00 AM EDT Pulse 65 09/12/2023 8:00 AM EDT Temperature 36.2 C (97.2 F) 09/12/2023 8:00 AM EDT Respiratory Rate 18 09/12/2023 8:00 AM EDT [...] 08/29/1993, 08/15/1993, Additional history exists Influenza Vaccine 10/08/2024 02/06/2023, , 12/22/2014, Additional history exists COVID-19 Vaccine ( season) 2024 11/06/2020, 10/16/2020 Pap Smear (Ages 21-65) 11/17/2027 , 02/06/2023, 01/11/2022, Additional history exists Hepatitis B Vaccines Completed 09/18/2000, 10/19/19 00 Pneumococcal Vaccine: Pediatric (0-5 Years) and At-Risk Patients (6 to 49 Years) Aged Out 02/15/2014 No longer eligible based on patient's age to complete this topic HIV Screening Completed 06/13/2023 Procedures Procedure Name Priority Date/Time Associated Diagnosis Comments THINPREP PAP(SEAFOOD FISHERMAN) HPV SCR RFX HPV 16,18/45 Routine 11/16/2024 12:00 AM EDT HIV 1/2 AG/AB CMIA REFLEX TO CONFIRMATION Routine 06/13/2023 3:37 PM EDT from Last 3 Months or Most Recently Relevant to Health Maintenance Results * ThinPrep Pap(Office Cashier) HPV Scr Rfx HPV 16,18/45 (11/16/2024 12:00 AM EDT) Report Report [facility] Comment: Final Gynecological Cytology Report ThinPrep Pap Test, HPV Screen, Reflex HPV Genotype SPECIMEN ADEQUACY: SATISFACTORY FOR EVALUATION; ENDOCERVICAL/TRANSFORMATION ZONE COMPONENT PRESENT. INTERPRETATION: NEGATIVE FOR INTRAEPITHELIAL LESION OR MALIGNANCY. Electronically Signed: Debbie Hill CT (ASCP) CLINICAL INFORMATION: LMP: 11/07/2024 Clinical History: AB Biopsy Date: NG Specimen Source: Cervix, Endocervix Previous Pap Date: NG HPV RESULTS: HPV mRNA E6/E7 [id number] Approved: 11/17/24 Negative REF RANGE: Negative CPT Codes: 86494 ICD Codes: Z01.419 11/16/2024 11/16/2024 9:4 2 PM EDT us Sparkle Rincon MD LAB AMB PATH/CYTO ORDERABLES F inal Result [facility] [address] [place], [place] * HIV 1/2 Ag/Ab CMIA Reflex to Confirmation (06/13/2023 3:37 PM EDT) HIV Ag/Ab, 4th Gen Non-Reacti ve Non-Reacti ve [facility] Comment: Results show no evidence of infection by HIV 1/2. If clinically indicated, repeat CMIA or test by nucleic acid amplification. 06/13/2023 3:37 PM EDT 06/14/2023 12:45 AM EDT Narrative [facility] - 06/14/2023 3:19 AM EDT ANTIBODY ID: [id number] us Sparkle Rincon MD LAB BLOOD ORDERABLES Final Res ult [facility] [address] [place], [place] from Last 3 Months or Most Recently Relevant to Health Maintenance [facility] Advance Directives * Full Code (Latest Code [...] Decision Thoroughly Discussed with: Patient Care Teams General Machine Operator Relationship Specialty Start Date End Date Saritha Rodrigez MD PCP - General 05/18/11 Sparkle Rincon MD [address] [place] [address] Obstetrics and Gynecology 04/16/23
--- OUTSIDE RECORDS SUMMARY | 2024-12-28 18:25 | XMS_ITS | Encounter Summary ---
Author Organization Formerly [facility] Address [address] [place] [address] Care Team Providers Care Barrel Lathe Operator Outside Name Role Phone Jenna Snider MD Primary Care Provider + [phone] Encounter Details Date Type Department Care Team (Late st Contact Info) Description 09/22/2024 Orders Only [facility] Department of Internal Medicine [address] [place], [place] [phone] Jenna Snider MD [address] [place] [phone] Bruising (Primary Dx) Social History Tobacco Use Types Packs/Day Years Used Date Smoking Tobacco: Never Smokeless Tobacco: Never Alcohol Use Standard Drinks/Week Comments Yes 2 (1 standard drink = 0.6 oz pur e alcohol) [facility] Utilities Answer Date Recorded In the past 12 months has [facility] electric, gas, oil, or water [employer] threatened to shut off services in your home? No 05/24/2024 Overall Financial Resource Strain (CARDIA) Answe r Date Recorded How hard is it for you to pa y for the very basics like food, housing, medical care, and heating? Not hard at all 05/24/2024 Hunger Vital Sign Answer Date Recorded Within the past 12 months, y ou worried that your food would run out before you got the money to buy more. Never true 05/25/19 25 Within the past 12 months, t he food you bought just didn't last and you didn't have money to get more. Never true 05/24/2024 PRAPARE - Transportation Answer Date Re corded In the past 12 months, has l ack of transportation kept you from medical appointments or from getting medications? No 05/24/2024 Lack of Transportation (Non-Medical) Not on file 05/24/2024 Housing Stability Vital Sign Answer Ced e Recorded In the last 12 months, was t here a time when you were not able to pay the mortgage or rent on time? No 05/24/2024 In the past 12 months, how m any times have you moved where you were living? 0 05/24/2024 At any time in the past 12 m [facility], were you homeless or living in a nursing home (including now)? No 05/24/2024 Comments Unknown Sex and Gender Information Value [...] Description 06/03/2025 1:00 PM EDT Office Visit [facility] Department of Internal Medicine [address] [place] [address] Jenna Snider MD [address] [place] [address] Scheduled Orders Name Type Priority Associated Diagnoses Orde r Schedule Complete blood count (CBC) and differential Lab Routine Bruising Expected: 09/22/2024, Expires: 09/22/2025 Prothrombin time (PT) with INR Lab Routine Bruising 1 Occurrences starting 09/22/2024 until 03/25/2026 Activated partial thromboplastin time (aPTT) Lab Routine Bruising Expected: 09/22/2024, Expires: 09/22/2025 von Willebrand antigen Lab Routine Bruising 1 Occurrences starting 09/22/2024 until 03/25/2026 von Willebrand activity Lab Routine Bruising 1 Occurrences starting 09/22/2024 until 03/25/2026 Factor VIII activity Lab Routine Bruising 1 Occurrences starting 09/22/2024 until 03/25/2026 Factor IX activity Lab Routine Bruising 1 Occurrences starting 09/22/2024 until 03/25/2026 documented as of this encounter Visit Diagnoses Diagnosis Bruising- Primary Contusion of unspecified site documented in this encounter Care Teams Barrel Lathe Operator Outside Relationship Specialty Start Date End Date Jenna Snider MD [address] [place] [address] PCP - General Internal Medicine 01/09/24 documented as of this encounter
--- OUTSIDE RECORDS SUMMARY | 2024-12-28 18:25 | XMS_ITS | Encounter Summary ---
Author Organization [facility] Address [address] [place] [address] Care Team Providers Care Pneumatic Tool Repairer Name Role Phone Jenna Snider MD Primary Care Provider + [phone] Encounter Details Date Type Department Care Team (Late st Contact Info) Description 04/09/2024 Orders Only [facility] Department of Internal Medicine [address] [phone] Jenna Snider MD [address] [place] [phone] Attention or concentration deficit Social History Tobacco [...] Description 06/03/2025 1:00 PM EDT Office Visit [facility] Department of Internal Medicine [address] [place] [address] Jenna Snider MD [address] [place] [phone] documented as of this encounter Visit Diagnoses Diagnosis Attention or concentration deficit documented in this encounter Care Teams Pneumatic Tool Repairer Relationship Specialty Start Date End Date Jenna Snider MD [address] [place] [phone] PCP - General Internal Medicine 01/09/24 documented as of this encounter
--- OUTSIDE RECORDS SUMMARY | 2024-12-28 18:25 | XMS_ITS | Encounter Summary ---
Author Organization [facility] Address [address] [place] [address] Care Team Providers Care Associate Artistic Director Name Role Phone Jenna Snider MD Primary Care Provider + [phone] Encounter Details Date Type Department Care Team (Late st Contact Info) Description 05/25/2024 Orders Only [facility] Department of Internal Medicine [address] [phone] Jenna Snider MD [address] [place] [phone] Social History Tobacco Use Types Packs/Day Years Used Date Smoking Tobacco: Never Smokeless Tobacco: Never Alcohol Use Standard Drinks/Week Comments Yes 2 (1 standard drink = 0.6 oz pur e alcohol) [facility] Utilities Answer Date Recorded In the past 12 months has e electric, gas, oil, or water company [...] any time in the past 12 m [facility], were you homeless or living in a intermediate (including now)? No 05/24/2024 Comments Unknown Sex [...] suspected to have Coronavirus/COVID-19? No / Unsure 05/28/2024 1:31 PM EDT documented as of this encounter Plan of Treatment Upcoming Encounters Date Type Department Care Team (Late st Contact Info) Description 06/03/2025 1:00 PM EDT Office Visit [facility] Department of Internal Medicine [address] [place] [address] Jenna Snider MD [address] [place] [phone] documented as of this encounter Visit Diagnoses Not on filedocumented in this encounter Care Teams Associate Artistic Director Relationship Specialty Start Date End Date Jenna Snider MD [address] [place] [phone] PCP - General Internal Medicine 01/09/24 documented as of this encounter
--- OUTSIDE RECORDS SUMMARY | 2024-12-28 18:25 | XMS_ITS | Clinical Summary ---
Author Organization Formerly [facility] Address [address] [place] [address] Care Team Providers Care Wood Pattern Maker Name Role Phone Jenna Snider MD Primary Care Provider [phone] Allergies Active Allergy Reactions Criticality Noted Date Comments Cephalexin Hives Medium 08/24/2015 Sulfamethoxazole-Trimethoprim Itching,Hives Medium 03/2017 Medications * This document contains information received from the source organization and may not represent a complete record from that organization. drospirenone-ethi nyl estradioL (Elsa, 28,) 3-0.02 mg per tablet Take 1 tablet by mouth in the morning. Active amphetamine-dextr oamphetamine XR (ADDERALL XR) 10 mg 24 hr capsuleIndication s:Attention or concentration deficit Take 1 capsule (10 mg total) by mouth in the morning. Max Daily Amount: 10 mg. 30 capsule 5 Active amphetamine-dextr oamphetamine XR (ADDERALL XR) 10 mg 24 hr capsuleIndication s:Attention or concentration deficit Take 1 capsule (10 mg total) by mouth in the morning. Max Daily Amount: 10 mg. 30 capsule 5 12/21/19 25 Discontinu ed(Reorder ) amphetamine-dextr oamphetamine XR (ADDERALL XR) 10 mg 24 hr capsuleIndication s:Attention or concentration deficit Take 1 capsule (10 mg total) by mouth in the morning. Max Daily Amount: 10 mg. 30 capsule 5 12/22/19 25 Discontinu ed(Reorder ) Active Problems Problem Noted Date Diagnosed Date Mixed hyperlipidemia 05/28/2024 Assessment & Plan (05/28/2024 2:11 PM EDT): Recent labs show elevated lipid panel with LDL of 112 mg/dL. This elevation is likely related to recent , as changes in cholesterol levels are common. Patient gained 60 pounds during and is losing weight slowly. She follows a Mediterranean-style diet with recent addition of chicken and fish, and exercises 3 times per week for the past 3 months. Plan: - Repeat lipid panel in 3 months - Continue current diet and exercise regimen - Reassess need for pharmacological intervention based on repeat lab results Upper back pain 05/28/2024 Assessment & Plan (05/28/2024 2:11 PM EDT): Patient reports back pain, especially with lifting, 8 months after . This could be related to changes, weight gain during , or biomechanical factors associated with childcare activities. 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 3 times per week - Diet: Mostly home cooked meals. Follows mediterranean diet. Incorporated meats and fish in diet - Sleep: 5-6 hours a night. No trouble falling/staying asleep - PHQ2: Negative - GAD2:Negative - DV screen: Negative - Safety: Wears Sunblock regularly. No weapons in the house - Cervical cancer screening: pap smears every 3-5 years (5 years with HPV testing) after the age of 21: Last done in 01/2023 - results unavailable, normal results per patient. HPV co-testing negative. Has appointment scheduled with [facility] - Screening for high cholesterol and diabetes if at increased risk: Done 03/2024 - Screening for colorectal cancer if there is a family history of early colon cancer: No family history of CRC. Screening will begin at age 45 - Vaccinations: flu shot is recommended every year, Tdap/Td every 10 years and Tdap with each . HPV series is recommended under the age of 26 and may be considered from age 27-45, COVID19 vaccination is recommended for all adults: Due for Flu and COVID. Declined despite education - Advise 150 minutes of moderate intensity aerobic activity per week Assessment & Plan (02/27/2024 9:05 AM EST): Last blood work September: CBC showed low Hgb, no history of [...] Attention deficit disorder 05/12/2013 Assessment & Plan (05/28/2024 2:10 PM EDT): Patient is currently stable on Adderall 10 mg daily. She reports good control of symptoms at this dose. Patient expresses desire to maintain current dose, especially considering potential future plans. Patient experienced prescription monitoring issues due to state record errors, which have been resolved. Plan: - Continue Adderall 10 mg PO daily - Patient to request refill 3-4 days before running out - Follow up in one year for annual physical or sooner if needed Assessment & Plan (02/27/2024 9:05 AM EST): [...] and annual exam - Patient informed of [id number] F/U while on medication - Rx sent to [facility], [facility] Resolved Problems Problem Noted Date Diagnosed Date Resolved Date Migraine without aura or status migrainosus 02/01/2019 02/07/2020 Immunizations Immunization Administration Dates Next Due Influenza, Injectable, Mdck, Preservative Free, Quadrivalt 02/06/2023 COVID-19 mRNA (PFIZER) 11/06/2020,10/16/2020 DTP / HiB 10/20/1989 DTaP 5 08/29/1993, 4,02/11/1990,02/11,1988,1988 DTaP, Unspecified 08/29/1993, 4,02/11/1990,02/11,1988,1988 HPV, Quadrivalent 02/18/2007,11/19/2006 HPV, Unspecified 02/18/2007,11/19/2006 Hepatitis B 09/18/2000,10/19/1999 Hpv Vaccine 9-valent 09/10/2007 Influenza TIV (IM) 12/16/2013, 3,12/01/2012,02/05 Influenza, Quadrivalent 12/22/2014 Influenza, Unspecified 01/02/2021 MMR 10/19/1999,11/20/1989 Meningococcal MCV4P 11/19/2006 Meningococcal, Unspecified 11/19/2006 OPV 10/15/1993, 0,1988,10/21 Pneumococcal Polysaccharide PCV-23 02/15/2014 TD Preservative Free 10/31/2003 Tdap 06/19/2023,12/31/2011 Tetanus 10/31/2003 Family History Medical History Relation Comments Cancer Father Heart disease Father Lung cancer Father No Known Problems Mother Hemochromatosis Paternal Grandmother Relation Status Comments Father Mother Alive Paternal Grandmother Social History Tobacco Use Types Packs/Day Years Used Date Smoking Tobacco: Never Smokeless Tobacco: Never Tobacco Cessation:Counseling Given: Not Answered Alcohol Use Standard Drinks/Week Comments Yes 2 (1 standard drink = 0.6 oz pur e alcohol) [facility] Utilities Answer Date Recorded In the past 12 months has e [employer], gas, oil, or water [employer] threatened to shut off services in your [...] any time in the past 12 m [facility], were you homeless or living in a long term (including now)? No 05/24/2024 Comments Unknown Sex and Gender Information Value Date Recorded Sex Assigned at Female 02/17/2022 10:53 PM EST Legal Sex Female 11:52 AM EST Gender Identity Female 02/17/2022 10:53 PM EST Sexual Orientation Straight 02/17/2022 10 :53 PM EST Last Filed Vital Signs Vital Sign Reading Time Taken Comments Blood Pressure 110/74 05/28/2024 1:37 PM EDT Pulse 75 05/28/2024 1:37 PM EDT Temperature 36.2 C (97.2 F) 05/28/2024 1:37 PM EDT Respiratory Rate 20 05/28/2024 1:37 PM EDT Oxygen Saturation 100% 05/28/2024 1:37 PM EDT Inhaled Oxygen Concentration - - Weight 76.2 kg (168 lb) 05/28/2024 1:37 PM EDT Height 165.1 cm (5' 5 ) 05/28/2024 1:37 PM EDT Body Mass Index 27.96 05/28/2024 1:37 PM EDT Plan of Treatment Upcoming Encounters Date Type Department Care Team (Late st Contact Info) Description 06/03/2025 1:00 PM EDT Office Visit [facility] Department of Internal Medicine [address] [place] [address] Jenna Snider MD [address] [place] [phone] Health Maintenance Due Date Last Done Comments HIV Screening 1988 Hepatitis C Screening 2006 COVID-19 Vaccine ( season) 2024 11/06/2020, 10/16/2020 Pap Smear 11/17/2027 11/16/2024, 01/10, 01/11/2022, Additional history exists Cervical Cancer Screening 11/16/2029 HPV/Cotest 11/16/2029 11/16/2024, 01/10, 01/11/2022, Additional history exists DTaP,Tdap,and Td Vaccines (8 - Td or Tdap) 06/18/2033 06/19/2023, 12/31/2011, 10/31/2003, Additional history exists Zoster Vaccines (1 of 2) 2038 MMR Vaccines Completed 10/19/1999, 11/20/1989 Hepatitis B Vaccines Completed 09/18/2000, 10/19/19 00 Meningococcal Vaccine Completed 11/19/2006, 007 HPV Vaccines Completed 09/10/2007, 02/07, 02/18/2007, Additional history exists Pneumococcal Vaccine: Pediatrics (0 to 5 Years) and At-Risk Patients (6 to 49 Years) Aged Out 02/15/2014 No longer eligible based on patient's age to complete this topic Influenza Vaccine Discontinued 02/06/2023, , 12/22/2014, Additional history exists Hepatitis A Vaccines Aged Out No long er eligible based on patient's age to complete this topic Insurance ANTHEM - OUT OF STATE Care Teams Wood Pattern Maker Relationship Specialty Start Date End Date Jenna Snider MD [address] [place] [phone] PCP - General Internal Medicine 01/09/24
--- OUTSIDE RECORDS SUMMARY | 2024-12-28 18:25 | XMS_ITS | Encounter Summary ---
Author Organization [facility] Address [address] [place] [address] Care Team Providers Care Uncrater Name Role Phone Saritha Rodrigez MD Primary Care Provider + [phone] Sparkle Rincon MD Unavailable [phone] Encounter Details Date Type Department Care Team (Late st Contact Info) Description 12/13/2014 Scanned Document [address] [phone] Provider, Generic Social History Tobacco [...] on filedocumented in this encounter Care Teams Uncrater Relationship Specialty Start Date End Date Saritha Rodrigez MD PCP - General 05/18/11 Sparkle Rincon MD [address] [place] [address] Obstetrics and Gynecology 04/16/23 documented as of this encounter
== END 2024-12-28 13:48 | disposition home or self-care (01) ==
LOC: HO.LAB 13:47
DX: T14.8XXA Other injury of unspecified body region, initial encounter (principal); E78.5 Hyperlipidemia, unspecified; Z87.59 Personal history of other complications of pregnancy, childbirth and the puerperium; X58.XXXA Exposure to other specified factors, initial encounter
CPT/HCPCS: 36415; 84144; 84702; 85025; 85240; 85246; 85250; 85610; 85730

== ENCOUNTER 2024-12-30 | Outpatient (REF) | payer OTHER, SELFPAY ==
--- OUTSIDE RECORDS SUMMARY | 2025-02-01 12:06 | XMS_ITS | Encounter Summary ---
Author Organization [facility] Address [address] [place] [address] Care Team Providers Care Training Representative Name Role Phone Saritha Rodrigez MD Primary Care Provider + [phone] Sparkle Rincon MD Unavailable [phone] Encounter Details Date Type Department Care Team (Late st Contact Info) Description 04/10/2017 Scanned Document [address] [place] [phone] Provider, Generic Social History Tobacco Use Types [...] on filedocumented in this encounter Care Teams Training Representative Relationship Specialty Start Date End Date Saritha Rodrigez MD PCP - General 05/18/11 Sparkle Rincon MD [address] [place] [address] Obstetrics and Gynecology 2/7/24 documented as of this encounter
--- OUTSIDE RECORDS SUMMARY | 2025-02-01 12:06 | XMS_ITS | Encounter Summary ---
Author Organization [facility] Address [address] [place] [address] Care Team Providers Care Roustabout Hand Name Role Phone Saritha Rodrigez MD Primary Care Provider [phone] Jenna Snider MD Primary Care Provider + [phone] Encounter Details Date Type Department Care Team (Late st Contact Info) Description 11/28/2022 Orders Only [facility] Department of Internal Medicine [address] [place], [place] [phone] Saritha Rodrigez MD [address] [facility] [address] Leukopenia, unspecified type (Primary Dx) Social History [...] Description 06/03/2025 1:00 PM EDT Office Visit [facility] Department of Internal Medicine [address] [place] [address] Jenna Snider MD [address] [place] [phone] Scheduled Orders Name Type Priority Associated Diagnoses Orde r Schedule CBC (H/H, RBC, INDICES, WBC, PLT) (Q) Lab Routine Leukopenia, unspecified type 1 Occurrences starting 11/28/2022 until 11/29/2023 documented as of this encounter Visit Diagnoses Diagnosis Leukopenia, unspecified type- Primary documented in this encounter Care Teams Roustabout Hand Relationship Specialty Start Date End Date Saritha Rodrigez MD [address] [place] [address] -[place] [address] PCP - General 05/07/17 01/08/24 Jenna Snider MD [address] [place] [phone] PCP - General Internal Medicine 01/09/24 documented as of this encounter
--- OUTSIDE RECORDS SUMMARY | 2025-02-01 12:06 | XMS_ITS | Encounter Summary ---
Author Organization [facility] Address [address] [place] [address] Care Team Providers Care Vp Strategic Planning Name Role Phone Saritha Rodrigez MD Primary Care Provider [phone] Sparkle Rincon MD Unavailable [phone] Encounter Details Date Type Department Care Team (Late st Contact Info) Description 10/02/2017 Scanned Document [facility] [place] [address] [place] [phone] Patrice Hensley PA [address] [place] [address] Social History Tobacco Use Types Packs/Day Years [...] on filedocumented in this encounter Care Teams Vp Strategic Planning Relationship Specialty Start Date End Date Saritha Rodrigez MD PCP - General 05/18/11 Sparkle Rincon MD [address] [facility] [address] [place] [address] Obstetrics and Gynecology 04/16/23 documented as of this encounter
--- OUTSIDE RECORDS SUMMARY | 2025-02-01 12:06 | XMS_ITS | Encounter Summary ---
Author Organization [facility] Address [address] [place] [address] Care Team Providers Care Firer Retort Name Role Phone Saritha Rodrigez MD Primary Care Provider + [phone] Sparkle Rincon MD Unavailable [phone] Encounter Details Date Type Department Care Team (Late st Contact Info) Description 04/10/2017 Scanned Document [address] [place] [phone] Provider, Generic Social History Tobacco Use Types [...] on filedocumented in this encounter Care Teams Firer Retort Relationship Specialty Start Date End Date Saritha Rodrigez MD PCP - General 05/18/11 Sparkle Rincon MD [address] [place] [address] Obstetrics and Gynecology 2/7/24 documented as of this encounter
--- OUTSIDE RECORDS SUMMARY | 2025-02-01 12:06 | XMS_ITS | Encounter Summary ---
Author Organization [facility] Address [address] [place] [address] Care Team Providers Care Pattern Cutter Name Role Phone Saritha Rodrigez MD Primary Care Provider [phone] Jenna Snider MD Primary Care Provider [phone] Reason for Referral * MRI/CAT/PET Scan (Routine) - Closed Specialty Diagnoses / Procedures Referred By Contac t Referred To Contact Radiology Diagnoses Paresthesias Altered mental status, unspecified altered mental status type Procedures MRI brain W WO contrast Saritha Rodrigez MD [address] [place], [place] [address] [address] Phone: tel: fax: Referral ID Status Reason Start Date Expiration Date Visits Re quested Visits Authorized [id number] Closed 11/09/2021 12/14/2022 1 1 Encounter Details Date Type Department Care Team (Late st Contact Info) Description 11/09/2021 Orders Only [facility] Medicine [address] [place] [address] Saritha Rodrigez MD [address] [place], [place] [address] [address] Paresthesias (Primary Dx); Altered mental status, unspecified [...] 06/03/2025 1:00 PM EDT Office Visit [facility] Department of Internal Medicine [address] [place] [address] Jenna Snider MD [address] [place] [phone] Scheduled Orders Name Type Priority Associated Diagnoses Orde r Schedule MRI brain W WO contrast Imaging Routine Paresthesias Altered mental status, unspecified altered mental status type Expected: 11/09/2021, Expires: 05/10/2023 documented as of this encounter Visit Diagnoses Diagnosis Paresthesias- Primary Disturbance of skin sensation Altered mental status, unspecified altered mental status type documented in this encounter Care Teams Pattern Cutter Relationship Specialty Start Date End Date Saritha Rodrigez MD [address] [place] [address] -[place] [address] PCP - General 05/07/17 01/08/24 Jenna Snider MD [address] [place] [phone] PCP - General Internal Medicine 01/09/24 documented as of this encounter
--- OUTSIDE RECORDS SUMMARY | 2025-02-01 12:07 | XMS_ITS | Clinical Summary ---
Author Organization [facility] Address [address] [place] [address] Care Team Providers Care Php Engineer Name Role Phone Saritha Rodrigez MD Primary Care Provider + [phone] Sparkle Rincon MD Unavailable [phone] Allergies Active Allergy Reactions Criticality Noted [...] as needed (hemorrhoidal irritation). 4 Active lanolin ([id number]) creamIndication s:Term delivered Apply topically as needed (nipple care). 4 Active witch mercedes-glycerin (TUCKS) padIndications: Term delivered Apply topically as needed for irritation. 4 Active Active Problems Problem Noted Date Diagnosed Date and [facility]08[facility]2023 Missed 07/16/2022 Attention deficit disorder 05/12/2013 Resolved Problems Problem Noted Date Diagnosed Date Resolved Date Otitis media 12/11/2014 02/03/2024 Immunizations Immunization Administration Dates Next Due DTP [...] = 0.6 oz pur e alcohol) Soc [facility] Utilities Answer Date Recorded In the past 12 months has th e electric, gas, oil, or water [employer] threatened to shut off services in your [...] place to sleep or slept in a long-term (including now)? No 09/08/2023 Comments No Sex [...] Procedure Name Priority Date/Time Associated Diagnosis Comments (REPORT) GC/CHLAMYDIA BY DNA Routine 01/31/2025 12:00 AM EST THINPREP PAP(SURVEYOR'S ASSISTANT) HPV SCR RFX HPV 16,18/45 Routine 11/16/2024 12:00 AM EDT HIV 1/2 AG/AB CMIA REFLEX TO CONFIRMATION Routine 06/13/2023 3:37 PM EDT from Last 3 Months or Most Recently Relevant to Health Maintenance Results * GC/Chlamydia by DNA (01/31/2025 12:00 AM EST) Neisseria Gonorrhoeae RNA, TMA Negative Negative [facility] Comment: The performance of endocervical, vaginal, and male urethral swab specimens, male and female urine specimens, and PreservCyt Solution liquid Pap specimens has not been evaluated in adolescents less than 16 years of age. Chlamydia Trachomatis RNA, TMA Negative Negative [facility] Comment: The performance of endocervical, vaginal, and male urethral swab specimens, male and female urine specimens, and PreservCyt Solution liquid Pap specimens has not been evaluated in adolescents less than 16 years of age. 01/31/2025 01/31/2025 11: 04 PM EST us Concepcion Galvez MD MICROBIOLOGY - GENERAL DELFINA CABRAL Final Result [facility] [address], [place] * ThinPrep Pap(Test Consultant) HPV Scr Rfx HPV 16,18/45 (11/16/2024 12:00 AM EDT) Report Report [facility] Comment: Final Gynecological Cytology Report ThinPrep Pap Test, HPV Screen, Reflex HPV Genotype SPECIMEN ADEQUACY: SATISFACTORY FOR EVALUATION; ENDOCERVICAL/TRANSFORMATION ZONE COMPONENT PRESENT. INTERPRETATION: NEGATIVE FOR INTRAEPITHELIAL LESION OR MALIGNANCY. Electronically Signed: Debbie Hill CT (ASCP) CLINICAL INFORMATION: LMP: 11/07/2024 Clinical History: AB Biopsy Date: NG Specimen Source: Cervix, Endocervix Previous Pap Date: NG HPV RESULTS: HPV mRNA E6/E7 [id number] Approved: 11/17/24 Negative REF RANGE: Negative CPT Codes: 29663 ICD Codes: Z01.419 11/16/2024 11/16/2024 9:4 2 PM EDT us Sparkle Rincon MD LAB AMB PATH/CYTO ORDERABLES F inal Result Performing Organization Address [facility]/ZIP Co de Phone Number [facility] [address], [place] * HIV 1/2 Ag/Ab CMIA Reflex to Confirmation (06/13/2023 3:37 PM EDT) HIV Ag/Ab, 4th Gen Non-Reacti ve Non-Reacti ve [facility] Comment: Results show no evidence of infection by HIV 1/2. If clinically indicated, repeat CMIA or test by nucleic acid amplification. 06/13/2023 3:37 PM EDT 06/14/2023 12:[address] [facility] - 06/14/2023 3:19 AM EDT ANTIBODY ID: [id number] us Sparkle Rincon MD LAB BLOOD ORDERABLES Final Res ult Performing Organization Address [facility] [email or web address]] Co de Phone Number [facility] [address], [place] from Last 3 Months or Most Recently Relevant to Health Maintenance [facility] Directives * Full Code (Latest Code [...] Decision Thoroughly Discussed with: Patient Care Teams Php Engineer Relationship Specialty Start Date End Date Saritha Rodrigez MD PCP - General 05/18/11 Sparkle Rincon MD [address] [facility] [address] [place] [address] Obstetrics and Gynecology 04/16/23
--- OUTSIDE RECORDS SUMMARY | 2025-02-01 12:07 | XMS_ITS | Encounter Summary ---
Author Organization [facility] Address [address] [place] [address] Care Team Providers Care Exhibit Technician Name Role Phone Saritha Rodrigez MD Primary Care Provider + [phone] pSarkle Rincon MD Unavailable [phone] Encounter Details Date Type Department Care Team (Late st Contact Info) Description 12/13/2014 Scanned Document [address] [phone] Provider, Generic Social History Tobacco [...] on filedocumented in this encounter Care Teams Exhibit Technician Relationship Specialty Start Date End Date Saritha Rodrigez MD PCP - General 05/18/11 Sparkle Rincon MD [address] [place] [address] [place] [address] Obstetrics and Gynecology 04/16/23 documented as of this encounter
--- OUTSIDE RECORDS SUMMARY | 2025-02-01 12:07 | XMS_ITS | Encounter Summary ---
Author Organization [facility] Address [address] [place] [address] Care Team Providers Care Switchman Supervisor Name Role Phone Jenna Snider MD Primary Care Provider + [phone] Encounter Details Date Type Department Care Team (Late st Contact Info) Description 05/25/2024 Orders Only [facility] Department of Internal Medicine [address] [id number] Jenna Snider MD [address] [place] [phone] Social History Tobacco Use Types Packs/Day Years Used Date Smoking Tobacco: Never Smokeless Tobacco: Never Alcohol Use Standard Drinks/Week Comments Yes 2 (1 standard drink = 0.6 oz pur e alcohol) [facility] Utilities Answer Date Recorded In [...] any time in the past 12 m [facility], were you homeless or living in a half-way (including now)? No 05/24/2024 Comments Unknown Sex [...] 06/03/2025 1:00 PM EDT Office Visit [facility] Department of Internal Medicine [address] [place] [address] Jenna Snider MD [address] [place] [phone] documented as of this encounter Visit Diagnoses Not on filedocumented in this encounter Care Teams Switchman Supervisor Relationship Specialty Start Date End Date Jenna Snider MD [address] [place] [phone] PCP - General Internal Medicine 01/09/24 documented as of this encounter
--- OUTSIDE RECORDS SUMMARY | 2025-02-01 12:07 | XMS_ITS ---
Author Name [facility] Organization Unknown Results Test Name/Text Value Interpretation Date Range Source Neutrophils num Bld Auto 9.11 Thou/uL Above high normal 09/11/2023 2 - 7.5 [facility] WBC num Bld Auto 11.7 Thou/uL Above high normal 09/11/2023 4 - 11 [facility] Lymphocytes/leuk NFr Bld Auto 15.2 % Normal 09/11/2023 [facility] Imm Granulocytes num Bld Auto 0.08 Thou/uL Normal 09/11/2023 0 - 0.1 [facility] Neutrophils/leuk NFr Bld Auto 77.6 % Normal 09/11/2023 [facility] Eosinophil num Bld Auto 0.08 Thou/uL Normal 09/11/2023 0 - 0.7 [facility] Monocytes/leuk NFr Bld Auto 5.5 % Normal 09/11/2023 [facility] MCV RBC Auto 97.0 fL Normal 09/11/2023 80 - 100 [facility] Imm Granulocytes/leuk NFr Bld Auto 0.7 % Normal 09/11/2023 [facility] Hct VFr Bld Auto 30.7 % Below low normal 09/11/2023 35 - 47 [facility] RDW RBC Auto-Rto 13.1 % Normal 09/11/2023 11.5 - 14.5 [facility] Lymphocytes num Bld Auto 1.78 Thou/uL Normal 09/11/2023 1.5 - 4.5 [facility] Basophils num Bld Auto 0.03 Thou/uL Normal 09/11/2023 0 - 0.2 [facility] MCH RBC Qn Auto 33.5 pg Normal 09/11/2023 26 - [address] PMV Bld Auto 10.8 fL Normal 09/11/2023 7.5 - 12.5 [facility] RBC num Bld Auto 3.16 Mil/uL Below low normal 09/11/2023 4 - 5.4 [facility] Hgb Bld-mCnc 10.6 g/dL Below low normal 09/11/2023 11.7 - 15 .7 [facility] Monocytes num Bld Auto 0.65 Thou/uL Normal 09/11/2023 0.2 - 1.5 [facility] Eosinophil/leuk NFr Bld Auto 0.7 % Normal 09/11/2023 [facility] Platelet num Bld Auto 167.0 Thou/uL Normal 09/11/2023 150 - 450 [facility] MCHC RBC Auto-mCnc 34.5 g/dL Normal 09/11/2023 30 - 36 [facility] Basophils/leuk NFr Bld Auto 0.3 % Normal 09/11/2023 [facility] RDW RBC Auto-Rto 13.2 % Normal 09/11/2023 11.5 - 14.5 [facility] Hgb Bld-mCnc 10.7 g/dL Below low normal 09/11/2023 11.7 - 15 .7 [facility] RBC num Bld Auto 3.26 Mil/uL Below low normal 09/11/2023 4 - 5.4 [facility] MCHC RBC Auto-mCnc 33.0 g/dL Normal 09/11/2023 30 - 36 [facility] PMV Bld Auto 11.6 fL Normal 09/11/2023 7.5 - 12.5 [facility] WBC num Bld Auto 12.9 Thou/uL Above high normal 09/11/2023 4 - 11 [facility] MCV RBC Auto 99.0 fL Normal 09/11/2023 80 - 100 [facility] Hct VFr Bld Auto 32.4 % Below low normal 09/11/2023 35 - 47 [facility] MCH RBC Qn Auto 32.8 pg Normal 09/11/2023 26 - [address] Platelet num Bld Auto 173.0 Thou/uL Normal 09/11/2023 150 - 450 [facility] TT imm Bovine Thrombin PPP 13.3 seconds Normal 09/11/2023 12.7 - 19.2 [facility] Anticoagulant NO ANTI COAGULANT MEDS Normal 09/11/2023 [facility] aPTT PPP 21.0 seconds Below low normal 09/11/2023 25 - 36 [facility] Anticoagulant NO ANTI COAGULANT MEDS Normal 09/11/2023 [facility] Prothrombin time 10.7 seconds Normal 09/11/2023 10 - 13.5 [facility] INR PPP 0.9 Normal 09/11/2023 [facility] Anticoagulant NO ANTI COAGULANT MEDS Normal 09/11/2023 [facility] Fibrinogen PPP-mCnc 500.0 mg/dL Above high normal 09/11/2023 148 - 435 [facility] T. pallidum IgG+IgM Ser QI IA Nonreactive Normal 09/09/2023 - [facility] Platelet num Bld Auto 209.0 Thou/uL Normal 09/08/2023 150 - 450 [facility] RDW RBC Auto-Rto 13.0 % Normal 09/08/2023 11.5 - 14.5 [facility] Monocytes/leuk NFr Bld Auto 5.9 % Normal 09/08/2023 [facility] Monocytes num Bld Auto 0.55 Thou/uL Normal 09/08/2023 0.2 - 1.5 [facility] Eosinophil/leuk NFr Bld Auto 1.0 % Normal 09/08/2023 [facility] MCH RBC Qn Auto 32.4 pg Normal 09/08/2023 26 - [address] MCHC RBC Auto-mCnc 33.2 g/dL Normal 09/08/2023 30 - 36 [facility] WBC num Bld Auto 9.4 Thou/uL Normal 09/08/2023 4 - 11 [facility] PMV Bld Auto 11.6 fL Normal 09/08/2023 7.5 - 12.5 [facility] Neutrophils/leuk NFr Bld Auto 69.6 % Normal 09/08/2023 [facility] Imm Granulocytes/leuk NFr Bld Auto 0.6 % Normal 09/08/2023 [facility] Hgb Bld-mCnc 12.2 g/dL Normal 09/08/2023 11.7 - 15.7 [facility] T Lymphocytes num Bld Auto 2.12 Thou/uL Normal 09/08/2023 1.5 - 4.5 [facility] Basophils num Bld Auto 0.03 Thou/uL Normal 09/08/2023 0 - 0.2 [facility] Eosinophil num Bld Auto 0.09 Thou/uL Normal 09/08/2023 0 - 0.7 [facility] Neutrophils num Bld Auto 6.52 Thou/uL Normal 09/08/2023 2 - 7.5 [facility] Hct VFr Bld Auto 36.8 % Normal 09/08/2023 35 - 47 [facility] Basophils/leuk NFr Bld Auto 0.3 % Normal 09/08/2023 [facility] Lymphocytes/leuk NFr Bld Auto 22.6 % Normal 09/08/2023 [facility] Imm Granulocytes num Bld Auto 0.06 Thou/uL Normal 09/08/2023 0 - 0.1 [facility] RBC num Bld Auto 3.77 Mil/uL Below low normal 09/08/2023 4 - 5.4 [facility] MCV RBC Auto 98.0 fL Normal 09/08/2023 80 - 100 [facility] KIT,JARRED Report will be sent directly from [employer] to provider's office. Normal 02/17/2023 [id number] History of Medication Use Medication Directions Dispensed Refills Start Date End Date Stat amphetamine-dextroamph etamine XR (ADDERALL XR) 10 mg 24 hr capsule Take 1 capsule (10 mg total) by mouth in the morning. Max Daily Amount: 10 mg. 05/25/2024 active amphetamine-dextroamph etamine XR (ADDERALL XR) 5 mg 24 hr capsule Take 1 capsule (5 mg total) by mouth in the morning. Max Daily Amount: 5 mg. 02/27/2024 5 active BERNARD (28) 3 mg-0.02 mg tablet one tablet qd by oral route as directed 10/27/2023 4 active benzocaine 20% - menthol 0.5% (DERMOPLAST) 20-0.5 % Aerosol topical spray Apply 1 Application topically 4 times daily (every 6 hours) as needed for mild pain or irritation. 09/12/2023 4 active dibucaine (NUPERCAINAL) 1 % ointment Apply topically 4 times daily (every 6 hours) as needed (hemorrhoidal irritation). 09/12/2023 4 active ibuprofen (MOTRIN) 600 MG tablet Take 1 tablet (600 mg total) by mouth 4 times daily (every 6 hours) as needed for mild pain, moderate pain, fever or headaches. 09/12/2023 4 active lanolin (BEF-W-DMLTSL) cream Apply topically as needed (nipple care). 09/12/2023 4 active witch mercedes-glycerin (TUCKS) pad Apply topically as needed for irritation. 09/12/2023 4 active ferrous sulfate 325 mg (65 mg iron) tablet,delayed release TAKE 1 TABLET BY MOUTH DAILY. TAKE 2 HOURS BEFORE OR 4 HOURS AFTER ACID REDUCERS. 2022 3 completed ferrous sulfate 325 (65 FE) MG EC tablet Take 1 tablet (325 mg total) by mouth daily. Take 2 hours before or 4 hours after acid reducers. 07/17/2022 3 active ibuprofen (MOTRIN) 800 mg tablet Take 1 tablet (800 mg total) by mouth 3 times daily (every 8 hours) as needed for mild pain or moderate pain. 07/17/2022 3 active acetaminophen (TYLENOL) 500 MG tablet Take 2 tablets (1,000 mg total) by mouth 4 times daily (every 6 hours) as needed for mild pain or moderate pain. 07/17/2022 3 active amphetamine-dextroamph etamine XR (ADDERALL XR) 15 mg 24 hr capsule Take 1 capsule (15 mg total) by mouth in the morning. Max Daily Amount: 15 mg. 07/16/2021 3 active diazepam (VALIUM) 5 MG tablet Take 1 tablet (5 mg total) by mouth 4 times daily (every 6 hours) as needed for anxiety or muscle spasms. 07/12/2021 active folic acid (FOLVITE) tablet 01/07/2020 4 active GIANVI, 28, 3-0.02 mg per tablet TAKE 1 TABLET ONCE DAILY, BRAND NAME ONLY MEDICALLY NECESSARY. 05/06/2017 4 active GIANVI 3-0.02 MG per tablet 09/27/2015 active Cipro 500 mg tablet Take 1 tablet every 12 hours by oral route for 3 days. 01/05/2015 active ibuprofen 600 mg tablet TAKE 1 TABLET 4 TIMES A DAY (EVERY 6 HOURS) NEEDED FOR MILD TO MODERATE PAIN,FEVER,HEADA MILAN 4 completed Cough DM ER 30 mg/5 mL oral suspension,extended release TAKE 20 MG (3.3MLS) ORALLY 3 TIMES A DAY NEEDED FOR COUGH FOR 5 DAYS 3 completed ferrous sulfate 325 mg (65 mg iron) tablet TAKE 1 TABLET BY MOUTH DAILY. TAKE 2 HOURS BEFORE OR 4 HOURS AFTER ACID REDUCERS. 3 completed ibuprofen 800 mg tablet TAKE 1 TABLET BY MOUTH 3 TIMES A DAY EVERY 8 HOURS NEEDED FOR MILD - MODERATE PAIN 3 completed dextroamphetamine-amph etamine ER 15 mg 24hr capsule,extend release TAKE 1 CAPSULE (15 MG TOTAL) BY MOUTH IN THE MORNING. MAX DAILY AMOUNT: 15 MG. 3 completed diazepam 5 mg tablet TAKE 1 TABLET BY MOUTH EVERY 6 HOURS NEEDED FOR ANXIETY OR MUSCLE SPASMS 2 completed erythromycin 5 mg/gram (0.5 %) eye ointment APPLY 1 A SMALL AMOUNT INTO LEFT EYE THREE TIMES A DAY 2 completed folic acid 1 mg tablet Take 3 tablets every day by oral route for 90 days. 2 completed nitrofurantoin monohydrate/macrocryst als 100 mg capsule TAKE 1 CAPSULE BY MOUTH EVERY 12 HOURS FOR 5 DAYS 2 completed ofloxacin 0.3 % eye drops PUT 1 DROP INTO BOTH EYES 4 TIMES A DAY FOR 1 WEEK 1 completed prednisolone acetate 1 % eye drops,suspension PUT 1 DROP INTO BOTH EYES 4 TIMES A DAY FOR 1 WEEK 1 completed albuterol sulfate HFA 90 mcg/actuation aerosol inhaler 9 completed amoxicillin 875 mg-potassium clavulanate 125 mg tablet 9 completed azithromycin 250 mg tablet 9 completed benzonatate 100 mg capsule 9 completed dextroamphetamine-amph etamine ER 10 mg 24hr capsule,extend release 11/02 9 completed fluconazole 150 mg tablet Take one tablet today and one tablet in three days. 9 completed ibuprofen 400 mg tablet 9 completed ipratropium bromide 42 mcg (0.06 %) nasal spray 9 completed Lidocaine Viscous 2 % mucosal solution 9 completed oseltamivir 75 mg capsule 9 completed prednisone 10 mg tablet 9 completed prednisone 20 mg tablet 9 completed dextroamphetamine-amph etamine ER 25 mg 24hr capsule,extend release Take 1 capsule every day by oral route. 8 completed sulfamethoxazole 800 mg-trimethoprim 160 mg tablet Take 1 tablet every 12 hours by oral route for 3 days. 8 completed doxycycline monohydrate 100 mg capsule 7 completed fluocinonide 0.05 % topical cream 7 completed fluticasone propionate 50 mcg/actuation nasal spray,suspension 7 completed BERNARD (28) 3 mg-0.02 mg tablet active None recorded. (No additional sig information) completed drospirenone-ethinyl estradioL (Elsa, 28,) 3-0.02 mg per tablet Take 1 tablet by mouth in the morning. active ferrous sulfate 325 mg (65 mg iron) tablet,delayed release TAKE 1 TABLET BY MOUTH DAILY. TAKE 2 HOURS BEFORE OR 4 HOURS AFTER ACID REDUCERS. TAKE 1 TABLET BY MOUTH DAILY. TAKE 2 HOURS BEFORE OR 4 HOURS AFTER ACID REDUCERS. completed I-Fdcugxniohwc-P0-B12 3-35-2 MG Tab Take 1 tablet by mouth 2 (two) times a day. active No known medications No known medications active oseltamivir (TAMIFLU) 6 MG/ML suspension Take by mouth. ac tive Allergies Allergen Reaction Severity Comment Documented Date Source Statu s CEPHALEXIN ITCHING 04/10/2017 [facility] active SULFAMETHOXAZOLE-TRIMETHOPRI M ITCHING [facility] BACTRIM ITCHING moderate [facility] active Problems Problem Status Onset Date Problem Type Date of Resolution Source Upper back pain active ProblemAct [facility] Attention deficit disorder active ProblemAct [facility] Attention or concentration deficit active EncounterDiagnosisAct [facility] Family history of hemochromatosis active ProblemAct [facility] Mixed hyperlipidemia active ProblemAct [facility] Atypical squamous cells of undetermined significance (ASCUS) on Papanicolaou smear of cervix active ProblemAct [facility] 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 [facility] 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 [facility] Atypical squamous cells of undetermined significance on cervical Papanicolaou smear active ProblemAct [facility] and not yet delivered in third trimester active ProblemAct [facility] Missed active ProblemAct [facility] Otitis media active ProblemAct [facility] Immunizations Vaccine Date Source Lot Number Status Tdap 09/11/2023 [facility] completed Tdap 06/19/2023 [facility] [id number] completed Influenza, Injectable, Mdck, Preservative Free, Quadrivalt 02/06/2023 [facility] [id number] completed Influenza, Unspecified 01/02/2021 [facility] co mpleted COVID-19 mRNA (PFIZER) 11/06/2020 [facility] co mpleted COVID-19 mRNA (PFIZER) 10/16/2020 [facility] co mpleted Influenza, Quadrivalent 12/22/2014 [facility] c ompleted Pneumococcal Polysaccharide PCV-23 02/15/2014 [facility] J [id number] completed Influenza Inactivated/Split Preservative Free IM 12/16/2013 [facility] completed Influenza TIV (IM) 12/16/2013 [facility] comple mallory Influenza Inactivated/Split Preservative Free IM 12/31/2012 [facility] completed Influenza TIV (IM) 12/31/2012 [facility] comple mallory Influenza Inactivated/Split Preservative Free IM 12/01/2012 [facility] completed Influenza TIV (IM) 12/01/2012 [facility] comple mallory Influenza Inactivated/Split Preservative Free IM 02/06/2012 [facility] [id number] completed Influenza TIV (IM) 02/06/2012 [facility] [id number] comple mallory Tdap 12/31/2011 [facility] [id number] completed Hpv Vaccine 9-valent 09/10/2007 [facility] comp leted HPV, Quadrivalent 02/18/2007 [facility] complet ed HPV, Unspecified 02/18/2007 [facility] complete d HPV, Quadrivalent 11/19/2006 [facility] complet ed HPV, Unspecified 11/19/2006 [facility] complete d Meningococcal MCV4P 11/19/2006 [facility] compl eted Meningococcal, Unspecified 11/19/2006 [facility] completed TD Preservative Free 10/31/2003 [facility] comp leted Tetanus 10/31/2003 [facility] completed Hepatitis B 09/18/2000 [facility] completed Hepatitis B 10/19/1999 [facility] completed MMR 10/19/1999 [facility] completed OPV 10/15/1993 [facility] completed DTaP 5 08/29/1993 [facility] completed DTaP, Unspecified 08/29/1993 [facility] complet ed DTaP 5 08/15/1993 [facility] completed DTaP, Unspecified 08/15/1993 [facility] complet ed DTaP 5 02/11/1990 [facility] completed DTaP, Unspecified 02/11/1990 [facility] complet ed OPV 02/11/1990 [facility] completed MMR 11/20/1989 [facility] completed DTP / HiB 10/20/1989 [facility] completed DTaP 5 02/11/1989 [facility] completed DTaP, Unspecified 02/11/1989 [facility] complet ed DTaP 5 1988 [facility] completed DTaP, Unspecified 1988 [facility] complet ed OPV 1988 [facility] completed DTaP 5 1988 [facility] completed DTaP, Unspecified 1988 [facility] complet ed OPV 1988 [facility] completed Encounters Encounter Type Encounter Reason Primary Diagnosis Location Date Ambulatory Encounter for pregna ncy test, result positive Encounter for test, result positive [facility], [facility] 02/01/20 25 Ambulatory Encounter for pregna ncy test, result positive Encounter for test, result positive [facility], [facility] 02/01/20 25 Ambulatory Encntr for quality assurance monitor body exam (general) (routine) w/o abn findings Encntr for quality assurance monitor body exam (general) (routine) w/o abn findings [facility], [facility] 01/18/20 25 Ambulatory Encntr for quality assurance monitor body exam (general) (routine) w/o abn findings Encntr for quality assurance monitor body exam (general) (routine) w/o abn findings [facility], [facility] 01/18/20 25 Ambulatory Encounter for routin e follow-up Encounter for routine follow-up [facility], [facility] 11/17/19 25 Ambulatory [facility] 05/29/19 25 Ambulatory Follow-up Follow-up [facility] 02/27/20 24 Ambulatory Encounter for full-t erm uncomplicated delivery Encounter for full-term uncomplicated delivery [facility], [facility] 10/27/19 24 Ambulatory [facility] 09/17/19 24 Inpatient Encounter for full-t erm uncomplicated delivery Encounter for full-term uncomplicated delivery [facility] 09/08/19 24 Ambulatory Supervision of elder ly multigravida, third trimester Supervision of elderly multigravida, third trimester [facility], [facility] 09/08/19 24 Ambulatory Supervision of elder ly multigravida, third trimester Supervision of elderly multigravida, third trimester [facility], [facility] 09/04/19 24 Ambulatory Encounter for suprvs n of normal , third trimester Encounter for suprvsn of normal , third trimester [facility], [facility] 08/28/19 24 Ambulatory Supervision of elder ly multigravida, third trimester Supervision of elderly multigravida, third trimester [facility], [facility] 08/23/19 24 Ambulatory Encounter for suprvs n of normal , third trimester Encounter for suprvsn of normal , third trimester [facility], [facility] 08/15/19 24 Ambulatory Encntr for suprvsn o f normal preg, unsp, third trimester Encntr for suprvsn of normal preg, unsp, third trimester [facility], [facility] 07/30/19 24 Ambulatory Encntr for suprvsn o f normal preg, unsp, third trimester Encntr for suprvsn of normal preg, unsp, third trimester [facility], [facility] 07/19/19 24 Ambulatory Supervision of elder ly primigravida, unspecified trimester Supervision of elderly primigravida, unspecified trimester [facility] 07/16/19 24 Ambulatory Encntr for suprvsn o f normal first preg, third trimester Encntr for suprvsn of normal first preg, third trimester [facility], [facility] 07/04/19 24 Ambulatory Encntr for suprvsn o f normal first preg, second trimester Encntr for suprvsn of normal first preg, second trimester [facility], [facility] 06/19/19 24 Ambulatory Maternal care for (s uspected) abnormality and damage, unspecified, not applicable or unspecified Maternal care for (suspected) abnormality and damage, unspecified, not applicable or unspecified [facility] 06/18/19 24 Ambulatory Supervision of elder ly multigravida, second trimester Supervision of elderly multigravida, second trimester [facility], [facility] 05/29/19 24 Ambulatory Encntr for suprvsn o f normal preg, unsp, second trimester Encntr for suprvsn of normal preg, unsp, second trimester [facility] 04/30/19 24 Ambulatory Supervision of elder ly primigravida, unspecified trimester Supervision of elderly primigravida, unspecified trimester [facility] 04/16/19 24 Ambulatory Encntr for suprvsn o f normal first preg, first trimester [facility], [facility] 04/02/19 24 Ambulatory Encounter for suprvs n of normal , first trimester [facility], [facility] 02/29/20 23 Ambulatory Encounter for suprvs n of normal , first trimester [facility] 02/29/20 23 Ambulatory Encounter for pregna ncy test, result positive [facility], [facility] 02/07/20 23 Ambulatory Encounter for pregna ncy test, result positive [facility], [facility] 02/07/20 23 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[facility], [facility]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 23 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[facility], [facility] 01/24/20 23 Ambulatory Methylenetetrahydrof olate reductase deficiency [facility], [facility] 12/13/19 23 Ambulatory Methylenetetrahydrof olate reductase deficiency [facility], [facility] 12/13/19 23 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[facility], [facility] 12/07/19 23 Ambulatory Atyp squam cell of u ndet signfc cyto smr crvx (ASC-US) [facility], [facility] 11/22/19 23 Ambulatory [facility], [facility] 09/21/19 23 Ambulatory [facility], [facility] 08/02/19 23 [facility] 07/[facility] 23 Ambulatory [facility], [facility] 07/17/19 23 Ambulatory Encounter for other preprocedural examination [facility] 07/13/19 23 Ambulatory [facility], [facility] 07/13/19 23 Ambulatory [facility] 07/13/19 23 Ambulatory [facility] 06/28/19 23 Ambulatory [facility] 06/28/19 23 Ambulatory [facility] 04/02/19 23 Ambulatory [facility] 01/12/20 22 Ambulatory [facility] 11/08/19 22 Ambulatory Prominent ear [place] [facility] 08/01/19 22 Ambulatory Prominent [facility] 07/18/19 22 Ambulatory Prominent [facility] 07/11/19 22 Ambulatory Encounter for general adult medical examination without abnormal findings [facility] 02/08/20 21 Ambulatory [facility], [facility] 01/09/20 21 Care Team Organization Name Specialty Phone Email Start Date End Da te [facility] JESSICA TAYLOR Primary Care 02/08 [facility] JESSICA TAYLOR Primary Care 02/05/2024 [facility] 01/22/2022 [facility] Jerrell Cates Primary Care 11/07/2021 [facility] JERRELL CHOW Primary Care 022 [facility] JERRELL CHOW Primary Care 07/31/2021 025 [facility] Jerrell Cates Primary Care 07/10/2021 07/18/19 22 [facility] JERRELL CHOW Primary Care 021 02/07/2021 [facility] 01/08/202101/11
--- OUTSIDE RECORDS SUMMARY | 2025-02-01 12:07 | XMS_ITS | Encounter Summary ---
Author Organization [facility] Address [address] [place] [address] Care Team Providers Care Food Preparation Supervisor Name Role Phone Jenna Snider MD Primary Care Provider [phone] Encounter Details Date Type Department Care Team (Late st Contact Info) Description 04/09/2024 Orders Only [facility] Department of Internal Medicine [address] [id number] Jenna Snider MD [address] [place] [id number] Attention or concentration deficit Social History Tobacco [...] Description 06/03/2025 1:00 PM EDT Office Visit [facility] Department of Internal Medicine [address] [place] [address] Jenna Snider MD [address] [place] [phone] documented as of this encounter Visit Diagnoses Diagnosis Attention or concentration deficit documented in this encounter Care Teams Food Preparation Supervisor Relationship Specialty Start Date End Date Jenna Snider MD [address] [place] [id number] PCP - General Internal Medicine 01/09/24 documented as of this encounter
--- OUTSIDE RECORDS SUMMARY | 2025-02-01 12:07 | XMS_ITS | Encounter Summary ---
Author Organization [facility] Address [address] [place] [address] Care Team Providers Care Amusement Machine Mechanic Name Role Phone Saritha Rodrigez MD Primary Care Provider [phone] Jenna Snider MD Primary Care Provider [phone] Encounter Details Date Type Department Care Team (Late st Contact Info) Description 07/18/2017 Orders Only [facility] of Internal Medicine [address] [place] [address] Saritha Rodrigez MD [address] [place] [address] [place] [address] Social History Tobacco Use Types Packs/Day Years [...] Office Visit [facility] [address] [place] [address] Jenna Snider MD [address] [place] [phone] documented as of this encounter Visit Diagnoses Not on filedocumented in this encounter Care Teams Amusement Machine Mechanic Relationship Specialty Start Date End Date Saritha Rodrigez MD [address] [place] [address] -[place] [address] PCP - General 05/07/17 01/08/24 Jenna Snider MD [address] [place] [phone] PCP - General Internal Medicine 01/09/24 documented as of this encounter
--- OUTSIDE RECORDS SUMMARY | 2025-02-01 12:07 | XMS_ITS | Clinical Summary ---
Author Organization [facility] Address [address] [place] [address] Care Team Providers Care Advertising Account Executive Name Role Phone Jenna Snider MD Primary Care Provider [phone] Allergies Active Allergy Reactions Criticality Noted Date Comments Cephalexin Hives Medium 08/24/2015 Sulfamethoxazole-Trimethoprim Itching,Hives Medium 03/2017 Medications * This document contains information received from the source organization and may not represent a complete record from that organization. drospirenone-ethin yl estradioL (Elsa, 28,) 3-0.02 mg per tablet Take 1 tablet by mouth in the morning. Active amphetamine-dextro amphetamine XR (ADDERALL XR) 10 mg 24 hr capsuleIndications :Attention or concentration deficit Take 1 capsule (10 mg total) by mouth in the morning. Max Daily Amount: 10 mg. 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 Has appointment scheduled with CLINICAL LABORATORY DIRECTOR - Screening for high cholesterol and diabetes [...] and annual exam - Patient informed of [id number] F/U while on medication - Rx sent to [facility], [facility] Resolved Problems Problem Noted Date Diagnosed [...] drink = 0.6 oz pur e alcohol) [facility] Utilities Answer Date Recorded In the past 12 months has th e [employer], gas, oil, or water [employer] threatened to shut off services in your [...] any time in the past 12 m [facility], were you homeless or living in a correction (including now)? No 05/24/2024 Comments Unknown Sex [...] 1:00 PM EDT Office Visit [facility] Department of Internal Medicine [address] [place] [address] Jenna Snider MD [address] [place] [address] Health Maintenance Due Date Last Done Comments [...] 02/07, 02/18/2007, Additional history exists Pneumococcal Vaccine: At-Risk and Pediatric Patients (0 to 49 Years) Aged Out 02/15/2014 No longer eligi ble based on patient's age to complete this topic Influenza Vaccine Discontinued 02/06/2023, , 12/22/2014, Additional history exists Hepatitis A Vaccines Aged Out No long er eligible based on patient's age to complete this topic Insurance - OUT OF STATE Care Teams Advertising Account Executive Relationship Specialty Start Date End Date Jenna Snider MD [address] [place] [phone] PCP - General Internal Medicine 01/09/24
--- OUTSIDE RECORDS SUMMARY | 2025-02-01 12:07 | XMS_ITS | Encounter Summary ---
Author Organization [facility] Address [address] [place] [address] Care Team Providers Care Waste Salvager Name Role Phone Sarihta Rodrigez MD Primary Care Provider [phone] Sparkle Rincon MD Unavailable [phone] Encounter Details Date Type Department Care Team (Late st Contact Info) Description 07/12/2022 Prep for Surgery OBGYN IP [address] [place] [address] Griselda Ortiz MD [address] [place] [address] Social History Tobacco Use Types Packs/Day Years [...] on filedocumented in this encounter Care Teams Waste Salvager Relationship Specialty Start Date End Date Saritha Rodrigez MD PCP - General 05/18/11 Sparkle Rincon MD [address] [place] [address] Obstetrics and Gynecology 04/16/23 documented as of this encounter
--- OUTSIDE RECORDS SUMMARY | 2025-02-01 12:07 | XMS_ITS | Encounter Summary ---
Author Organization [facility] Address [address] [place] [address] Care Team Providers Care Senior Ruby Developer Name Role Phone Jenna Snider MD Primary Care Provider + [phone] Encounter Details Date Type Department Care Team (Late st Contact Info) Description 09/22/2024 Orders Only [facility] Department of Internal Medicine [address] [place], [place] [phone] Jenna Snider MD [address] [place] [phone] Bruising (Primary Dx) Social History Tobacco Use Types Packs/Day Years Used Date Smoking Tobacco: Never Smokeless Tobacco: Never Alcohol Use Standard Drinks/Week Comments Yes 2 (1 standard drink = 0.6 oz pur e alcohol) [facility] Utilities Answer Date Recorded In the past 12 months has [facility] [employer], gas, oil, or water [employer] threatened to shut off services in your [...] time in the past 12 m [facility], were you homeless or living in a retirement (including now)? No 05/24/2024 Comments Unknown Sex [...] Description 06/03/2025 1:00 PM EDT Office Visit [facility] Department of Internal Medicine [address] [place] [address] Jenna Snider MD [address] [place] [address] Scheduled Orders Name Type Priority Associated Diagnoses [...] site documented in this encounter Care Teams Senior Ruby Developer Relationship Specialty Start Date End Date Jenna Snider MD [address] [place] [address] PCP - General Internal Medicine 01/09/24 documented as of this encounter
== END 2024-12-30 00:01 ==
LOC: HO.LAB
PROVIDERS: Visit Provider Obstetrics & Gynecology
DX: Z32.00 Encounter for pregnancy test, result unknown (principal); N91.2 Amenorrhea, unspecified
CPT/HCPCS: 36415; 84702

== ENCOUNTER 2025-02-02 13:11 | Outpatient (REF) | payer OTHER, SELFPAY ==
[2025-02-02 13:52] LABS: MANUAL DIFF FLAG NO
[2025-02-02 14:32] LABS: Hematocrit 36.4 % (37.0-47.0); Hemoglobin 12.4 g/dl (12.0-16.0); Imm Gran Abs Auto 0.03 X10*3/uL (0.00-0.03); Imm Gran Pct Auto 0.3 % (0.0-0.4); Lymphocytes Absolute Auto 2.3 X10*3/uL (1.2-4.9); Mean Corpuscular HGB Conc 34.1 g/dl (31.0-35.0); Mean Corpuscular Hemoglobin 31.4 pg (27.0-33.0); Mean Corpuscular Volume 92.2 fL (80.0-98.0); NRBC Abs Auto 0.000 X10*3/uL (0.0-0.012); NRBC Pct Auto 0.0 /100WBC (0.0-0.2); Platelet Count 260 X10*3/uL (160-400); Red Blood Count 3.95 X10*6/uL (4.20-5.50); White Blood Count 9.7 X10*3/uL (4.8-10.8)
[2025-02-02 15:12] LABS: Cholesterol 190 mg/dL (<200); HDL Cholesterol 74 mg/dL (>40); Triglycerides 113 mg/dL (<150)
[2025-02-02 15:42] LABS: Reflex LDLD? No
--- OUTSIDE RECORDS SUMMARY | 2025-02-02 16:22 | XMS_ITS | Encounter Summary ---
Author Organization [facility] Address [address] [place] [address] Care Team Providers Care Senior Foreman Name Role Phone Saritha Rodrigez MD Primary Care Provider Sparkle Rincon MD Unavailable [phone] Encounter Details Date Type Department Care Team (Late st Contact Info) Description 10/02/2017 Scanned Document [facility] [place] [address] [place] [phone] Patrice Hensley PA [address] [place] [address] Social History Tobacco Use Types Packs/Day Years [...] on filedocumented in this encounter Care Teams Senior Foreman Relationship Specialty Start Date End Date Saritha Rodrigez MD PCP - General 05/18/11 Sparkle Rincon MD [address] [facility] [address] [place] [address] Obstetrics and Gynecology 04/16/23 documented as of this encounter
--- OUTSIDE RECORDS SUMMARY | 2025-02-02 16:22 | XMS_ITS | Encounter Summary ---
Author Organization [facility] Address [address] [place] [address] Care Team Providers Care Grocery Bagger Name Role Phone Saritha Rodrigez MD Primary Care Provider + [phone] Sparkle Rincon MD Unavailable [phone] Encounter Details Date Type Department Care Team (Late st Contact Info) Description 04/10/2017 Scanned Document [address] [place] [phone] Provider, Generic Social History Tobacco Use Types [...] on filedocumented in this encounter Care Teams Grocery Bagger Relationship Specialty Start Date End Date Saritha Rodrigez MD PCP - General 05/18/11 Sparkle Rincon MD [address] [place] [address] Obstetrics and Gynecology 2/7/24 documented as of this encounter
--- OUTSIDE RECORDS SUMMARY | 2025-02-02 16:23 | XMS_ITS | Clinical Summary ---
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 Has appointment scheduled with [facility] - Screening for high cholesterol and diabetes [...] and annual exam - Patient informed of [id number] F/U while on medication - Rx sent to [facility], [facility] Resolved Problems Problem Noted Date [...] drink = 0.6 oz pur e alcohol) [facility] Utilities Answer Date Recorded In the past 12 months has th e [employer], gas, oil, or water [employer] threatened to shut off services in your [...] any time in the past 12 m [facility], were you homeless or living in a halfway (including now)? No 05/24/2024 Comments Unknown Sex [...] Description 06/03/2025 1:00 PM EDT Office Visit [facility] Department of Internal Medicine [address] [place] [address] Jenna Snider MD [address] [place] [address] Health Maintenance Due Date Last Done Comments [...] Insurance - OUT OF STATE Care Teams Perfect Binder Feeder Offbearer Relationship Specialty Start Date End Date Jenna Snider MD [address] [place] [phone] PCP - General Internal Medicine 01/09/24
--- OUTSIDE RECORDS SUMMARY | 2025-02-02 16:23 | XMS_ITS | Encounter Summary ---
Author Organization [facility] Address [address] [place] [address] Care Team Providers Care Staff Anesthetist Name Role Phone Jenna Snider MD Primary Care Provider + [phone] Encounter Details Date Type Department Care Team (Late st Contact Info) Description 05/25/2024 Orders Only [facility] Department of Internal Medicine [address] [place] [phone] Jenna Snider MD [address] [place] [phone] Social History Tobacco Use Types Packs/Day Years Used Date Smoking Tobacco: Never Smokeless Tobacco: Never Alcohol Use Standard Drinks/Week Comments Yes 2 (1 standard drink = 0.6 oz pur e alcohol) [facility] Utilities Answer Date Recorded In [...] any time in the past 12 m [facility], were you homeless or living in [...] Description 06/03/2025 1:00 PM EDT Office Visit [facility] Department of Internal Medicine [address] [place] [address] Jenna Snider MD [address] [place] [phone] documented as of this encounter Visit Diagnoses Not on filedocumented in this encounter Care Teams Staff Anesthetist Relationship Specialty Start Date End Date Jenna Snider MD [address] [place] [phone] PCP - General Internal Medicine 01/09/24 documented as of this encounter
--- OUTSIDE RECORDS SUMMARY | 2025-02-02 16:23 | XMS_ITS | Encounter Summary ---
Author Organization [facility] Address [address] [place] [address] Care Team Providers Care Color Maker Dyer Name Role Phone Saritha Rodrigez MD Primary Care Provider [phone] Jenna Snider MD Primary Care Provider [phone] Encounter Details Date Type Department Care Team (Late st Contact Info) Description 07/18/2017 Orders Only [facility] of Internal Medicine [address] [place] [address] Saritha Rodrigez MD [address] [place] [address] -[place] [address] Social History Tobacco Use Types Packs/Day Years [...] 1:00 PM EDT Office Visit [facility] of Internal Medicine [address] [place] [address] Jenna Snider MD [address] [place] [address] documented as of this encounter Visit Diagnoses Not on filedocumented in this encounter Care Teams Color Maker Dyer Relationship Specialty Start Date End Date Saritha Rodrigez MD [address] [place] [address] [place] [address] PCP - General 05/07/17 01/08/24 Jenna Snider MD [address] [place] [phone] PCP - General Internal Medicine 01/09/24 documented as of this encounter
--- OUTSIDE RECORDS SUMMARY | 2025-02-02 16:23 | XMS_ITS | Encounter Summary ---
Author Organization [facility] Address [address] [place] [address] Care Team Providers Care Scrapper Name Role Phone Saritha Rodrigez MD Primary Care Provider + [phone] Sparkle Rincon MD Unavailable [phone] Encounter Details Date Type Department Care Team (Late st Contact Info) Description 12/13/2014 Scanned Document [address] [address] Provider, Generic Social History Tobacco [...] on filedocumented in this encounter Care Teams Scrapper Relationship Specialty Start Date End Date Saritha Rodrigez MD PCP - General 05/18/11 Sparkle Rincon MD [address] [place] [address] Obstetrics and Gynecology 04/16/23 documented as of this encounter
--- OUTSIDE RECORDS SUMMARY | 2025-02-02 16:23 | XMS_ITS | Encounter Summary ---
Author Organization [facility] Address [address] [place] [address] Care Team Providers Care Warehouse Logistics Manager Name Role Phone Saritha Rodrigez MD Primary Care Provider + [phone] Sparkle Rincon MD Unavailable [phone] Encounter Details Date Type Department Care Team (Late st Contact Info) Description 04/10/2017 Scanned Document [address] [place] [phone] Provider, Generic Social History Tobacco Use Types [...] on filedocumented in this encounter Care Teams Warehouse Logistics Manager Relationship Specialty Start Date End Date Saritha Rodrigez MD PCP - General 05/18/11 Sparkle Rincon MD [address] [place] [address] Obstetrics and Gynecology 2/7/24 documented as of this encounter
--- OUTSIDE RECORDS SUMMARY | 2025-02-02 16:23 | XMS_ITS | Encounter Summary ---
Author Organization [facility] Address [address] [place] [address] Care Team Providers Care Horseshoer Name Role Phone Saritha Rodrigez MD Primary Care Provider [phone] Jenna Snider MD Primary Care Provider [phone] Reason for Referral * MRI/CAT/PET Scan (Routine) - Closed Specialty Diagnoses / Procedures Referred By Contac t Referred To Contact Radiology Diagnoses Paresthesias Altered mental status, unspecified altered mental status type Procedures MRI brain W WO contrast Saritha Rodrigez MD [address] [place], [place] [address] [address] Phone: tel: fax: Referral ID Status Reason Start Date Expiration Date Visits Re quested Visits Authorized [id number] Closed 11/09/2021 12/14/2022 1 1 Encounter Details Date Type Department Care Team (Late st Contact Info) Description 11/09/2021 Orders Only [facility] of Internal Medicine [address] [place] [address] Saritha Rodrigez MD [address] [place], [place] [address] [address] Paresthesias (Primary Dx); Altered mental status, unspecified [...] Description 06/03/2025 1:00 PM EDT Office Visit [facility] Department of Internal Medicine [address] [place] [address] Jenna Snider MD [address] [place] [phone] Scheduled Orders Name Type Priority Associated Diagnoses Orde r Schedule MRI brain W WO contrast Imaging Routine Paresthesias Altered mental status, unspecified altered mental status type Expected: 11/09/2021, Expires: 05/10/2023 documented as of this encounter Visit Diagnoses Diagnosis Paresthesias- Primary Disturbance of skin sensation Altered mental status, unspecified altered mental status type documented in this encounter Care Teams Horseshoer Relationship Specialty Start Date End Date Saritha Rodrigez MD [address] [place] [address] -[place] [address] PCP - General 05/07/17 01/08/24 Jenna Snider MD [address] [place] [phone] PCP - General Internal Medicine 01/09/24 documented as of this encounter
--- OUTSIDE RECORDS SUMMARY | 2025-02-02 16:23 | XMS_ITS | Encounter Summary ---
Author Organization [facility] Address [address] [place] [address] Care Team Providers Care Psychiatric Aide Instructor Name Role Phone Jenna Snider MD Primary Care Provider + [phone] Encounter Details Date Type Department Care Team (Late st Contact Info) Description 09/22/2024 Orders Only [facility] Department of Internal Medicine [address] [place], [place] [phone] Jenna Snider MD [address] [place] [phone] Bruising (Primary Dx) Social History Tobacco Use Types Packs/Day Years Used Date Smoking Tobacco: Never Smokeless Tobacco: Never Alcohol Use Standard Drinks/Week Comments Yes 2 (1 standard drink = 0.6 oz pur e alcohol) [facility] Utilities Answer Date Recorded In the past 12 months has [facility] electric, gas, oil, or water [employer] threatened to shut off services in your [...] any time in the past 12 m [facility], were you homeless or living in a usp (including now)? No 05/24/2024 Comments Unknown Sex [...] Description 06/03/2025 1:00 PM EDT Office Visit [facility] Department of Internal Medicine [address] [place] [address] Jenna Snider MD [address] [place] [address] Scheduled Orders Name Type Priority Associated Diagnoses [...] site documented in this encounter Care Teams Psychiatric Aide Instructor Relationship Specialty Start Date End Date Jenna Snider MD [address] [place] [address] PCP - General Internal Medicine 01/09/24 documented as of this encounter
--- OUTSIDE RECORDS SUMMARY | 2025-02-02 16:23 | XMS_ITS | Clinical Summary ---
Author Organization [facility] Address [address] [place] [address] Care Team Providers Care Agricultural Commodities Inspector Name Role Phone Saritha Rodrigez MD Primary Care Provider + [phone] Sparkle Rincon MD Unavailable [phone] Allergies Active Allergy Reactions Criticality Noted [...] as needed (hemorrhoidal irritation). 4 Active lanolin (RPV-X-MLUXUC) creamIndication s:Term delivered Apply topically as needed (nipple care). 4 Active witch mercedes-glycerin (TUCKS) padIndications: Term delivered Apply topically as needed for irritation. 4 Active Active Problems Problem Noted Date Diagnosed Date [facility] Missed 07/16/2022 Attention deficit disorder [...] = 0.6 oz pur e alcohol) Soc [facility] Utilities Answer Date Recorded In the past 12 months has th e electric, gas, oil, or water [employer] threatened to shut off services in your [...] place to sleep or slept in a correction (including now)? No 09/08/2023 Comments No Sex [...] Procedure Name Priority Date/Time Associated Diagnosis Comments URINE CULTURE Routine 01/31/2025 12:00 AM EST (REPORT) GC/CHLAMYDIA BY DNA Routine 01/31/2025 12:00 AM EST THINPREP PAP(GROUP WORK PROGRAM AIDE) HPV SCR RFX HPV 16,18/45 Routine 11/16/2024 12:00 AM EDT HIV 1/2 AG/AB CMIA REFLEX TO CONFIRMATION Routine 06/13/2023 3:37 PM EDT from Last 3 Months or Most Recently Relevant to Health Maintenance Results * GC/Chlamydia by DNA (01/31/2025 12:00 AM EST) Neisseria Gonorrhoeae RNA, TMA Negative Negative [facility] Comment: The performance of endocervical, vaginal, and male urethral swab specimens, male and female urine specimens, and PreservCyt Solution liquid Pap specimens has not been evaluated in adolescents less than 16 years of age. Chlamydia Trachomatis RNA, TMA Negative Negative [facility] Comment: The performance of endocervical, vaginal, and male urethral swab specimens, male and female urine specimens, and PreservCyt Solution liquid Pap specimens has not been evaluated in adolescents less than 16 years of age. 01/31/2025 01/31/2025 11: 04 PM EST Concepcion Galvez MD MICROBIOLOGY - [facility] Final Result Performing Organization Address [facility] Co de Phone Number [facility] [address] [place], [place] * URINE CULTURE (01/31/2025 12:00 AM EST) Source URINE, RANDOM [facility] Culture Sterile or <1,000 col/mL. [facility] Comment: NOTE: For urine culture specimens not submitted in sandoval top tubes, due to supply chain limits, the laboratory is temporarily performing urine cultures from FDA approved preservative tubes that have not been validated, as well as from refrigerated sterile urine collection cups that do not contain a preservative. Culture of unpreserved urine may produce falsely elevated bacterial counts. Urine 01/31/2025 01/31/2025 11: 04 PM EST Narrative [facility] - 02/02/2025 10:13 AM EST Urine Source: URINE, RANDOM us Concepcion Galvez MD LAB AMB MICRO ORDERABLES Fi nal Result Performing Organization Address [facility]/ZIP Co de Phone Number [facility] [address], [place] * ThinPrep Pap(Corporate Driver) HPV Scr Rfx HPV 16,18/45 (11/16/2024 12:00 AM EDT) Report Report [facility] Comment: Final Gynecological Cytology Report ThinPrep Pap Test, HPV Screen, Reflex HPV Genotype SPECIMEN ADEQUACY: SATISFACTORY FOR EVALUATION; ENDOCERVICAL/TRANSFORMATION ZONE COMPONENT PRESENT. INTERPRETATION: NEGATIVE FOR INTRAEPITHELIAL LESION OR MALIGNANCY. Electronically Signed: Debbie Hill CT (ASCP) CLINICAL INFORMATION: LMP: 11/07/2024 Clinical History: AB Biopsy Date: NG Specimen Source: Cervix, Endocervix Previous Pap Date: NG HPV RESULTS: HPV mRNA E6/E7 [id number] Approved: 11/17/24 Negative REF RANGE: Negative CPT Codes: 92109 ICD Codes: Z01.419 11/16/2024 11/16/2024 9:4 2 PM EDT us Sparkle [place] MD LAB AMB PATH/CYTO ORDERABLES F inal Result [facility] [address], [place] * HIV 1/2 Ag/Ab CMIA Reflex to Confirmation (06/13/2023 3:37 PM EDT) HIV Ag/Ab, 4th Gen Non-Reacti ve Non-Reacti ve [facility] Comment: Results show no evidence of infection by HIV 1/2. If clinically indicated, repeat CMIA or test by nucleic acid amplification. 06/13/2023 3:37 PM EDT 06/14/2023 12:45 AM EDT Narrative [facility] - 06/14/2023 3:19 AM EDT ANTIBODY ID: ANTI-C us Sparkle Rincon MD LAB BLOOD ORDERABLES Final Res ult [facility] [address], [place] from Last 3 Months or Most Recently Relevant to Health Maintenance [facility]ives * Full Code (Latest [...] Decision Thoroughly Discussed with: Patient Care Teams Agricultural Commodities Inspector Relationship Specialty Start Date End Date Saritha Rodrigez MD PCP - General 05/18/11 Sparkle Rincon MD [address] [place] [address] Obstetrics and Gynecology 04/16/23
--- OUTSIDE RECORDS SUMMARY | 2025-02-02 16:23 | XMS_ITS | Encounter Summary ---
Author Organization [facility] Address [address] [place] [address] Care Team Providers Care Mechanic Insulator Name Role Phone Saritha Rodrigez MD Primary Care Provider [phone] Sparkle Rincon MD Unavailable [phone] Encounter Details Date Type Department Care Team (Late st Contact Info) Description 07/12/2022 Prep for Surgery OBGYN IP [address] [place] [address] Griselda Ortiz MD [address] [place] [address] Social History Tobacco Use Types Packs/Day Years [...] on filedocumented in this encounter Care Teams Mechanic Insulator Relationship Specialty Start Date End Date Saritha Rodrigez MD PCP - General 05/18/11 Sparkle [place] MD [address] [place] [address] Obstetrics and Gynecology 04/16/23 documented as of this encounter
--- OUTSIDE RECORDS SUMMARY | 2025-02-02 16:23 | XMS_ITS | Encounter Summary ---
Author Organization [facility] Address [address] [place] [address] Care Team Providers Care Monotype Caster Name Role Phone Saritha Rodrigez MD Primary Care Provider [phone] Jenna Snider MD Primary Care Provider + [phone] Encounter Details Date Type Department Care Team (Late st Contact Info) Description 11/28/2022 Orders Only [facility] Department of Internal Medicine [address] [place], [place] [id number] Saritha Rodrigez MD [address] [facility] -[place] [address] Leukopenia, unspecified type (Primary Dx) Social History [...] Description 06/03/2025 1:00 PM EDT Office Visit [facility] Department of Internal Medicine [address] [place] [address] Jenna Snider MD [address] [place] [phone] Scheduled Orders Name Type Priority Associated Diagnoses Orde r Schedule CBC (H/H, RBC, INDICES, WBC, PLT) (Q) Lab Routine Leukopenia, unspecified type 1 Occurrences starting 11/28/2022 until 11/29/2023 documented as of this encounter Visit Diagnoses Diagnosis Leukopenia, unspecified type- Primary documented in this encounter Care Teams Monotype Caster Relationship Specialty Start Date End Date Saritha Rodrigez MD [address] [place] [address] -[place] [address] PCP - General 05/07/17 01/08/24 Jenna Snider MD [address] [place] [phone] PCP - General Internal Medicine 01/09/24 documented as of this encounter
--- OUTSIDE RECORDS SUMMARY | 2025-02-02 16:23 | XMS_ITS | Encounter Summary ---
Author Organization [facility] Address [address] [place] [address] Care Team Providers Care Air Analysis Engineering Technician Name Role Phone Jenna Snider MD Primary Care Provider + [phone] Encounter Details Date Type Department Care Team (Late st Contact Info) Description 04/09/2024 Orders Only [facility] Department of Internal Medicine [address] [phone] Jenna Snider MD [address] [place] [phone] Attention or concentration deficit Social History Tobacco [...] Description 06/03/2025 1:00 PM EDT Office Visit [facility] Department of Internal Medicine [address] [place] [address] Jenna Snider MD [address] [place] [phone] documented as of this encounter Visit Diagnoses Diagnosis Attention or concentration deficit documented in this encounter Care Teams Air Analysis Engineering Technician Relationship Specialty Start Date End Date Jenna Snider MD [address] [place] [phone] PCP - General Internal Medicine 01/09/24 documented as of this encounter
[2025-02-03 04:48] LABS: Syphilis Screen Nonreactive (Nonreactive)
[2025-02-03 05:00] LABS: HBsAGNum1 0.42 S/CO (0.00-0.99); HIV Num 1 0.06 S/CO (0.00-0.99); Hepatitis B Surface Antigen Negative (Negative)
== END 2025-02-02 13:12 | disposition home or self-care (01) ==
LOC: HO.LAB 13:11
DX: Z34.81 Encounter for supervision of other normal pregnancy, first trimester (principal); Z01.84 Encounter for antibody response examination; Z20.2 Contact with and (suspected) exposure to infections with a predominantly sexual mode of transmission; Z11.59 Encounter for screening for other viral diseases; E78.5 Hyperlipidemia, unspecified; Z13.1 Encounter for screening for diabetes mellitus
CPT/HCPCS: 80061; 83036; 85025; 86695; 86696; 86762; 86780; 86803; 86850; 86900; 86901; 87340; 87389